=== PATIENT | male | born 1970 | race Caucasian/White ===

== ENCOUNTER → 2018-09-03 14:46 | Outpatient (CLI) | payer OTHER, SELFPAY ==
[2018-09-03 15:03] LABS: Add Manual Diff / Slide Review NO; Basophils Absolute Auto 100 /uL (0-100); Basophils Percent Auto 0.9 % (0-2); Eosinophils Absolute Auto 300 /uL (0-450); Eosinophils Percent Auto 2.6 % (2-4); Hemoglobin 14.1 g/dL (13.5-17.5); Lymphocytes Absolute Auto 3000 /uL (1100-4500); Lymphocytes Percent Auto 30.2 % (25-40); Mean Corpuscular HGB Conc 34.4 % (30-36); Mean Corpuscular Hemoglobin 31.1 PG (26-34); Mean Corpuscular Volume 90.5 fL (80-100); Monocytes Absolute Auto 500 /uL (0-900); Monocytes Percent Auto 5.5 % (3-14); Neutrophils Absolute Auto 6000 /uL (1500-7000); Neutrophils Percent Auto 60.8 % (50-75); Platelet Count 343 X10^3/uL (150-400); Red Blood Cell Count 4.53 X10^6/uL (4.5-5.9); Red Cell Distribution Width 13.9 % (11.6-14.8); White Blood Cell Count 9.9 X10^3/uL (4.5-11.0)
[2018-09-03 15:50] LABS: Alanine Aminotransferase 56 IU/L (21-72); Albumin 4.3 g/dL (3.5-5.0); Albumin Globulin Ratio 1.5 (1.0-2.8); Alkaline Phosphatase 75 U/L (38-126); Aspartate Aminotransferase 47 IU/L (17-59); BUN Creatinine Ratio 13.8 (6-22); Bilirubin Total 0.4 mg/dL (0.2-1.3); Blood Urea Nitrogen 11 mg/dL (9-20); Calcium 9.4 mg/dL (8.4-10.2); Carbon Dioxide 23 mmol/L (22-32); Chloride 104 mmol/L (98-107); Cholesterol 161 mg/dL (140-199); Estimated Glomerular Filt Rate > 60.0 mL/min (>60); Globulin 2.9 g/dL (1.7-4.1); Glucose 114 mg/dL (70-100); HDL Cholesterol 29 mg/dL (40-60); HEMOLYSIS < 15 (0-50); LDL Cholesterol Calculated 97 mg/dL (<100); Potassium 4.4 mmol/L (3.4-5.1); Sodium 137 mmol/L (137-145); Total Protein 7.2 g/dL (6.3-8.2); Triglycerides 173 mg/dL (35-150)
== END ==
PROVIDERS: Visit Provider Internal Medicine
DX: I10 Essential (primary) hypertension (principal)
CPT/HCPCS: 36415; 80053; 80061; 85025

== ENCOUNTER 2020-08-08 14:52 | Emergency (ER) | payer OTHER, SELFPAY ==
[2020-08-08 15:05] VITALS: BP 151/93; PULSE 73; RESP 18; TEMP 36.4; O2SAT 96; BMI 44.3
[2020-08-08 15:47] LABS: Add Manual Diff / Slide Review NO; Basophils Absolute Auto 100 /uL (0-100); Eosinophils Absolute Auto 300 /uL (0-450); Eosinophils Percent Auto 2.8 % (2-4); Hematocrit 41.3 % (41-53); Lymphocytes Absolute Auto 2900 /uL (1100-4500); Lymphocytes Percent Auto 30.1 % (25-40); Mean Corpuscular HGB Conc 33.8 % (30-36); Mean Corpuscular Hemoglobin 31.3 PG (26-34); Mean Corpuscular Volume 92.4 fL (80-100); Monocytes Absolute Auto 400 /uL (0-900); Monocytes Percent Auto 4.2 % (3-14); Neutrophils Absolute Auto 6000 /uL (1500-7000); Neutrophils Percent Auto 61.9 % (50-75); Platelet Count 297 X10^3/uL (150-400); Red Blood Cell Count 4.47 X10^6/uL (4.5-5.9); Red Cell Distribution Width 13.6 % (11.6-14.8); White Blood Cell Count 9.8 X10^3/uL (4.5-11.0)
[2020-08-08 15:58] LABS: Alanine Aminotransferase 43 IU/L (<50); Albumin Globulin Ratio 1.3 (1.0-2.8); Alkaline Phosphatase 71 U/L (38-126); Aspartate Aminotransferase 39 IU/L (17-59); Bilirubin Total 0.3 mg/dL (0.2-1.3); Blood Urea Nitrogen 15 mg/dL (9-20); Calcium 9.6 mg/dL (8.4-10.2); Carbon Dioxide 30 mmol/L (22-32); Chloride 101 mmol/L (98-107); Estimated Glomerular Filt Rate > 60.0 mL/min (>60); Globulin 3.2 g/dL (1.7-4.1); Glucose 152 mg/dL (70-100); HEMOLYSIS < 15 (0-50); Lactate (Lactic Acid) 1.5 mmol/L (0.7-2.1); Potassium 3.7 mmol/L (3.4-5.1); Sodium 139 mmol/L (137-145); Total Protein 7.2 g/dL (6.3-8.2)
[2020-08-08 16:11] LABS: D Dimer 996 ng/mL (<230)
[2020-08-08 16:15] LABS: Procalcitonin 0.06 ng/mL (<0.5)
--- NOTE | 2020-08-08 16:44 | DI.US.S_ITS ---
PROCEDURE: US PERIPH VENOUS LOW EXTREM RT INDICATIONS: CELLULITIS TECHNIQUE: Real-time imaging, as well as color and pulse Doppler interrogation, were performed of the lower extremity deep veins from the inguinal ligament to the popliteal fossa. COMPARISON: None. FINDINGS: The common femoral, femoral and popliteal veins are normally compressible, and free of intraluminal thrombus. Color and pulse Doppler demonstrate normal phasic intraluminal flow. There is normal augmentation response to distal compression maneuver. IMPRESSION: Negative for deep venous thrombosis. Dictated by: Devang Ceballos M.D. on 08/08/2020 at 16:28 Approved by: Devang Ceballos M.D. on 08/08/2020 at 16:28
--- NOTE | 2020-08-08 17:19 | ED.SKABFB ---
HPI - Skin/Abscess/Foreign Bdy <SELINA Gay - Last Filed: 08/08/20 18:37> General Chief complaint: Skin/Abscess/Foreign Body Stated complaint: redness, inflamed,swelling R upper back of leg Time Seen by Provider: 08/08/20 15:30 Source: patient Mode of arrival: Family Vehicle Limitations: no limitations History of Present Illness HPI narrative: This is a 49-year-old male, smoker, who has past medical history significant for hypertension presents to ED with chief complain of right inner thigh redness, swelling, discomfort for last 3 days. Patient was evaluated by PCP Dr. Bah on Sun and was prescribed with topical antifungal cream for possible fungal/yeast infection and has started using the following day without improvement and thought the redness has been increasing. He went in to walk-in clinic yesterday and prescribed with antibiotic medication doxycycline which in the past worked well with skin infection on chin about 6 weeks ago and had used 3 doses so far. Today he noticed the redness is slightly increased and outside the skin pen marking that was done at [facility]. Patient denies fever, chills, nausea or vomiting. Patient denies any open skin injuries. Patient denies history of diabetes. Patient mostly sitting down during at work. Patient reports warm on affected site and pain increases with flexing right leg, and by touch. There's no drainage from the site. Patient denies recent travel, history of DVT, surgery or prolonged bed rest. Related Data Home Medications Medication Instructions Recorded Confirmed hydrochlorothiazide PO 03/31/20 08/07/20 losartan 100 mg tablet 100 mg PO DAILY 03/31/20 08/07/20 metoprolol PO 03/31/20 08/07/20 Previous Rx's Medication Instructions Recorded doxycycline hyclate 100 mg capsule 100 mg PO BID 10 Days #20 cap 08/07/20 cephalexin 500 mg PO Q6H 7 Days #28 cap 08/08/20 Allergies Allergy/AdvReac Type Severity Reaction Status Date / Time No Known Drug Allergies Allergy Verified 08/08/20 15:13 Review of Systems <SELINA Gay - Last Filed: 08/08/20 18:37> Review of Systems Narrative: General: Denies fever, chills, fatigue, malaise, sweats. Respiratory: Denies dyspnea, cough, wheezing, hemoptysis, sputum. Cardiovascular: Denies chest pain, palpitations, orthopnea, edema. Gastrointestinal: Denies nausea, vomiting, abdominal pain, diarrhea, constipation, melena. Musculoskeletal: Denies weakness, joint pain or bony pain. Skin: HPI Neurologic: Denies weakness, headache, numbness, change in speech, confusion, seizures, incoordination. Psychiatric: No concerning psychosocial issues. Patient History <SELINA Gay - Last Filed: 08/08/20 18:37> Medical History No active medical problems Social History Smoking Status: Current every day smoker Smoking Status: Current every day smoker tobacco type: cigarettes alcohol intake frequency: 0-2 drinks per day Substance Use Type: does not use Exam <SELINA Gay - Last Filed: 08/08/20 18:37> Narrative Exam Narrative: GEN: Alert, oriented x 3, well appearing and nourished, and in no acute distress. Head: Normal cephalic, atraumatic. No scalp or temporal tenderness, palpable mass or rash. EYES: Pupils are equal, round, and reactive to light and accommodation. Extraocular muscles are intact bilaterally. There is no subconjunctival hemorrhage, exudate and sclera non-icteric. ENT: Hearing grossly intact. Airway patent. Neck: Trachea in midline. No JVD, non-tender without lymphadenopathy. No masses or thyroid megaly. Supple, non-tender and no meningeal signs. CARDIAC: Normal regular rate and rhythm without murmurs, gallops, or rubs. No chest wall tenderness. No peripheral edema, cyanosis or pallor. Capillary refill is less than 2 seconds. RESPIRATORY: Lungs are clear to auscultate bilaterally. No cough, wheezes, rales, or rhonchi. No stridor, respiratory distress, increase work of breathing, or accessary muscle used. ABD: Abdomen soft, nontender and non-distended. No guarding or rebound tenderness to palpate. Bowel sounds are normal in all 4 quadrants. There is no palpable masses or organomegaly. EXT: Full painless ROM of all extremities with no loss of sensation, strength, effusion or edema. SKIN: Erythematous, warm and tenderness to palpate in right inner thigh without soft fluctuation. No drainge or open skin. Warm, dry, normal color for patient. BACK: Nontender without deformity or crepitance. No flank tenderness. NEUROLOGICAL: Alert and oriented to place, time and person. Sensation and motor function intact bilaterally. No facial droops, dysphasia. PSYCHIATRIC: Good judgement and reason, without hallucinations, abnormal affect or abnormal behaviors during the examination. Patient is not suicidal. Initial Vital Signs Initial Vital Signs: Vital Signs Temperature 97.6 F 08/08/20 15:05 Pulse Rate 73 08/08/20 15:05 Respiratory Rate 18 08/08/20 15:05 Blood Pressure 151/93 H 08/08/20 15:05 Pulse Oximetry 96 08/08/20 15:05 <Alecia Mariee DO - Last Filed: 08/08/20 19:31> Initial Vital Signs Initial Vital Signs: Vital Signs Temperature 97.6 F 08/08/20 15:05 Pulse Rate 73 08/08/20 15:05 Respiratory Rate 18 08/08/20 15:05 Blood Pressure 151/93 H 08/08/20 15:05 Pulse Oximetry 96 08/08/20 15:05 Scores <SELINA Gay - Last Filed: 08/08/20 18:37> GCS [place] coma scale eye opening: Spontaneous [place] coma scale verbal response: Orientated [place] coma scale motor response: Obey commands [place] coma scale total score: 15 Wells' Criteria for DVT Active Cancer (Treatment within 6 months): No Bedridden recently >3 days or major surgery within 4 weeks: No Calf Swelling >3cm compared to other leg: No Collateral (nonvericose) superficial veins present: No Entire leg swollen: No Localized tenderness along the deep vein system: Yes Pitting edema, confined to symtomatic leg: No Paralysis, paresis, or recent plaster immobilization of ext: No Previously documented DVT: No Alternative dx to DVT as likely or more likely: No Wells' criteria for DVT: 1 Course <SELINA Gay - Last Filed: 08/08/20 18:37> Orders Ordered: ED Orders 08/08/20 15:38 CMP [Comprehensive Metabolic Panel] Stat Complete Blood Count AUTO DIFF Stat D Dimer Stat Lactate (Lactic Acid) Stat Procalcitonin Stat 08/08/20 16:44 US periph venous low extrem rt Stat Reevaluation(s) Reevaluation #1: Discussed with the patient about elevated D dimer and had ordered US to rule out DVT. Time: 17:10 Vital Signs Vital signs: Vital Signs - 8 hr 08/08/20 15:05 08/08/20 18:18 Temperature 97.6 F Pulse Rate 73 76 Respiratory Rate 18 12 Blood Pressure 151/93 H 148/79 H Pulse Oximetry 96 96 <Alecia Mariee DO - Last Filed: 08/08/20 19:31> Orders Ordered: ED Orders 08/08/20 15:38 CMP [Comprehensive Metabolic Panel] Stat Complete Blood Count AUTO DIFF Stat D Dimer Stat Lactate (Lactic Acid) Stat Procalcitonin Stat 08/08/20 16:44 US periph venous low extrem rt Stat Vital Signs Vital signs: Vital Signs - 8 hr 08/08/20 15:05 08/08/20 18:18 Temperature 97.6 F Pulse Rate 73 76 Respiratory Rate 18 12 Blood Pressure 151/93 H 148/79 H Pulse Oximetry 96 96 MDM - Skin/Abscess/Foreign Bdy <SELINA Gay - Last Filed: 08/08/20 18:37> Differential Diagnosis Differential diagnosis: Likely abscess of skin or subcutaneous tissue, cellulitis and other (MRSA, Staph/strep infection) Medical Records Attestation: I reviewed the patient's medical records. Lab Data Attestation: I reviewed the patient's lab results. Result diagrams: 08/08/20 15:38 08/08/20 15:38 Labs: Lab Results 08/08/20 08/08/20 08/08/20 Range/Units 15:38 15:38 15:38 WBC 9.8 (4.5-11.0) X10^3/uL RBC 4.47 L (4.5-5.9) X10^6/uL Hgb 14.0 (13.5-17.5) g/dL Hct 41.3 (41-53) % MCV 92.4 (80-100) fL MCH 31.3 (26-34) PG MCHC 33.8 (30-36) % RDW 13.6 (11.6-14.8) % Plt Count 297 (150-400) X10^3/uL Neut % (Auto) 61.9 (50-75) % Lymph % (Auto) 30.1 (25-40) % [place] % (Auto) 4.2 (3-14) % Eos % (Auto) 2.8 (2-4) % Baso % (Auto) 1.0 (0-2) % Neut # (Auto) 6000 (3796-8087) /uL Lymph # (Auto) 2900 (1471-7904) /uL [place] # (Auto) 400 (0-900) /uL Eos # (Auto) 300 (0-450) /uL Baso # (Auto) 100 (0-100) /uL D-Dimer (<230) ng/mL Sodium 139 (137-145) mmol/L Potassium 3.7 (3.4-5.1) mmol/L Chloride 101 (98-107) mmol/L Carbon Dioxide 30 (22-32) mmol/L BUN 15 (9-20) mg/dL Creatinine 0.79 (0.66-1.25) mg/dL Estimated GFR > 60.0 (>60) mL/min BUN/Creatinine Ratio 19.0 (6-22) Glucose 152 H (70-100) mg/dL Lactate 1.5 (0.7-2.1) mmol/L Calcium 9.6 (8.4-10.2) mg/dL Total Bilirubin 0.3 (0.2-1.3) mg/dL AST 39 (17-59) IU/L ALT 43 (<50) IU/L Alkaline Phosphatase 71 (38-126) U/L Total Protein 7.2 (6.3-8.2) g/dL Albumin 4.0 (3.5-5.0) g/dL Globulin 3.2 (1.7-4.1) g/dL Albumin/Globulin Ratio 1.3 (1.0-2.8) Procalcitonin (<0.5) ng/mL 08/08/20 08/08/20 Range/Units 15:38 15:38 WBC (4.5-11.0) X10^3/uL RBC (4.5-5.9) X10^6/uL Hgb (13.5-17.5) g/dL Hct (41-53) % MCV (80-100) fL MCH (26-34) PG MCHC (30-36) % RDW (11.6-14.8) % Plt Count (150-400) X10^3/uL Neut % (Auto) (50-75) % Lymph % (Auto) (25-40) % [place] % (Auto) (3-14) % Eos % (Auto) (2-4) % Baso % (Auto) (0-2) % Neut # (Auto) (6532-6630) /uL Lymph # (Auto) (0921-9809) /uL [place] # (Auto) (0-900) /uL Eos # (Auto) (0-450) /uL Baso # (Auto) (0-100) /uL D-Dimer 996 H (<230) ng/mL Sodium (137-145) mmol/L Potassium (3.4-5.1) mmol/L Chloride (98-107) mmol/L Carbon Dioxide (22-32) mmol/L BUN (9-20) mg/dL Creatinine (0.66-1.25) mg/dL Estimated GFR (>60) mL/min BUN/Creatinine Ratio (6-22) Glucose (70-100) mg/dL Lactate (0.7-2.1) mmol/L Calcium (8.4-10.2) mg/dL Total Bilirubin (0.2-1.3) mg/dL AST (17-59) IU/L ALT (<50) IU/L Alkaline Phosphatase (38-126) U/L Total Protein (6.3-8.2) g/dL Albumin (3.5-5.0) g/dL Globulin (1.7-4.1) g/dL Albumin/Globulin Ratio (1.0-2.8) Procalcitonin 0.06 (<0.5) ng/mL Imaging Data US - DVT: Radiologist's Impression: [address] [id number] ReportSigned Patient: Micah Ziegler MMR#: [id number]: 1970Acct:[id number]/Sex: 49 / MDate of Service: 08/08/20Loc: EDAccession Number: [id number] Procedure: US periph venous low extrem rt Ordering Provider: Damion Sanchez PROCEDURE: US PERIPH VENOUS LOW EXTREM RT INDICATIONS: CELLULITIS TECHNIQUE: Real-time imaging, as well as color and pulse Doppler interrogation, were performed of the lower extremity deep veins from the inguinal ligament to the popliteal fossa. COMPARISON: None. FINDINGS: The common femoral, femoral and popliteal veins are normally compressible, and free of intraluminal thrombus. Color and pulse Doppler demonstrate normal phasic intraluminal flow. There is normal augmentation response to distal compression maneuver. IMPRESSION: Negative for deep venous thrombosis. Dictated by: Devang Ceballos M.D. on 08/08/2020 at 16:28 Approved by: Devang Ceballos M.D. on 08/08/2020 at 16:28 [facility] Narrative Medical decision making narrative: This is a 49 year male who has been recurrence skin lesions/infection last 6 weeks. Patient noticed right inner thigh redness, warmth, pain for last 3 days. Patient had used topical yeast/fungal infection, and started on Doxycyclen for last 2 days after he was evaluated by his primary care physician Dr. Bah and [facility] provider. He is here today with not improving and increasing redness and discomfort beyond the skin marked by pen yesterday. Patient does not endorse constitutional symptoms. Physical exam consistent with cellulitis. He is afebrile with within normal heart rate and respiration. Patient does not appear to be toxic. Wells criteria PE score 1. Labs are assuring. No indications for leukocytosis with normal lactate and procalcitonin. However with elevated D-dimer in age adjusted upto 989 and US test to rule out DVT ordered. DVT test was negative. Given assuring labs, patient afebrile, no constitutional symptoms, patient advised to monitor the affected side with worsening symptoms for additional 24-36 hours and if he gets worse than start adding Keflex in addition to doxycycline for staph/strep infection in addition to MRSA. Return precautions discussed with patient and advised close follow-up with PCP. Patient verbalized understanding and agreement with the treatment plan. <Alecia Mariee, - Last Filed: 08/08/20 19:31> Lab Data Labs: Lab Results 08/08/20 08/08/20 08/08/20 Range/Units 15:38 15:38 15:38 WBC 9.8 (4.5-11.0) X10^3/uL RBC 4.47 L (4.5-5.9) X10^6/uL Hgb 14.0 (13.5-17.5) g/dL Hct 41.3 (41-53) % MCV 92.4 (80-100) fL MCH 31.3 (26-34) PG MCHC 33.8 (30-36) % RDW 13.6 (11.6-14.8) % Plt Count 297 (150-400) X10^3/uL Neut % (Auto) 61.9 (50-75) % Lymph % (Auto) 30.1 (25-40) % [place] % (Auto) 4.2 (3-14) % Eos % (Auto) 2.8 (2-4) % Baso % (Auto) 1.0 (0-2) % Neut # (Auto) 6000 (2196-7230) /uL Lymph # (Auto) 2900 (7190-4011) /uL [place] # (Auto) 400 (0-900) /uL Eos # (Auto) 300 (0-450) /uL Baso # (Auto) 100 (0-100) /uL D-Dimer (<230) ng/mL Sodium 139 (137-145) mmol/L Potassium 3.7 (3.4-5.1) mmol/L Chloride 101 (98-107) mmol/L Carbon Dioxide 30 (22-32) mmol/L BUN 15 (9-20) mg/dL Creatinine 0.79 (0.66-1.25) mg/dL Estimated GFR > 60.0 (>60) mL/min BUN/Creatinine Ratio 19.0 (6-22) Glucose 152 H (70-100) mg/dL Lactate 1.5 (0.7-2.1) mmol/L Calcium 9.6 (8.4-10.2) mg/dL Total Bilirubin 0.3 (0.2-1.3) mg/dL AST 39 (17-59) IU/L ALT 43 (<50) IU/L Alkaline Phosphatase 71 (38-126) U/L Total Protein 7.2 (6.3-8.2) g/dL Albumin 4.0 (3.5-5.0) g/dL Globulin 3.2 (1.7-4.1) g/dL Albumin/Globulin Ratio 1.3 (1.0-2.8) Procalcitonin (<0.5) ng/mL 08/08/20 08/08/20 Range/Units 15:38 15:38 WBC (4.5-11.0) X10^3/uL RBC (4.5-5.9) X10^6/uL Hgb (13.5-17.5) g/dL Hct (41-53) % MCV (80-100) fL MCH (26-34) PG MCHC (30-36) % RDW (11.6-14.8) % Plt Count (150-400) X10^3/uL Neut % (Auto) (50-75) % Lymph % (Auto) (25-40) % [place] % (Auto) (3-14) % Eos % (Auto) (2-4) % Baso % (Auto) (0-2) % Neut # (Auto) (4722-0302) /uL Lymph # (Auto) (3522-7817) /uL [place] # (Auto) (0-900) /uL Eos # (Auto) (0-450) /uL Baso # (Auto) (0-100) /uL D-Dimer 996 H (<230) ng/mL Sodium (137-145) mmol/L Potassium (3.4-5.1) mmol/L Chloride (98-107) mmol/L Carbon Dioxide (22-32) mmol/L BUN (9-20) mg/dL Creatinine (0.66-1.25) mg/dL Estimated GFR (>60) mL/min BUN/Creatinine Ratio (6-22) Glucose (70-100) mg/dL Lactate (0.7-2.1) mmol/L Calcium (8.4-10.2) mg/dL Total Bilirubin (0.2-1.3) mg/dL AST (17-59) IU/L ALT (<50) IU/L Alkaline Phosphatase (38-126) U/L Total Protein (6.3-8.2) g/dL Albumin (3.5-5.0) g/dL Globulin (1.7-4.1) g/dL Albumin/Globulin Ratio (1.0-2.8) Procalcitonin 0.06 (<0.5) ng/mL Discharge Plan Departure Patient Disposition: Home Clinical Impression: Cellulitis Qualifiers: Site of cellulitis: extremity Site of cellulitis of extremity: lower extremity Laterality: right Qualified Code(s): L03.115 - Cellulitis of right lower limb Instructions: DI for Cellulitis -- Adult Activity Restrictions/Additional Instructions: You have been diagnosed with [right upper leg cellulitis. Your are currently taking doxycycline and completed day 2 treatment. No indications for severe infection at this time according to blood test. No indications for DVT at this time. Please continue doxycycline therapy. Monitor for increasing redness, warmth, pain on affected leg. New skin chelle was done today. If your symptoms get worse, please start on Keflex in 24-36 hours.]. What to do: *Take your medications as directed. Keflex 4 times a day for next 7 days in addition to doxycycline. Keflex has been transmitted to [facility] in [facility]. *Follow up with your primary care provider in 2-3 days, call for an appointment. Let them know you were seen in the ED and that we asked you to be seen in follow up. *Return to ED if you have any new, worsening, or concerning symptoms, such as [worsening pain, fever, increasing redness/warmth, chest pain, breathing difficulty, unable to tolerate fluids, or any acute concerns]. Prescriptions: New cephalexin 500 mg capsule 500 mg PO Q6H 7 Days Qty: 28 RF: 0 No Action metoprolol PO RF: 0 hydrochlorothiazide PO RF: 0 losartan 100 mg tablet 100 mg PO DAILY RF: 0 doxycycline hyclate 100 mg capsule 100 mg PO BID 10 Days Qty: 20 RF: 0 Referrals: Miscellanny,MD Sudeep [Primary Care Provider] - Munir Bah MD [Physician] - <Alecia Mariee DO - Last Filed: 08/08/20 19:31> Cosign ED Attending Linkature Attestation: I was immediately available in the department for consultation. Documentation has been reviewed. Case was discussed and agree with plan.
[2020-08-08 18:18] VITALS: BP 148/79; PULSE 76; RESP 12; O2SAT 96
== END 2020-08-08 18:20 | disposition home or self-care (01) ==
PROVIDERS: Emergency Provider Nurse Practitioner Family
DX: L03.115 Cellulitis of right lower limb (principal)
CPT/HCPCS: 36415; 80053; 83605; 84145; 85025; 85379; 93971; 99283

== ENCOUNTER 2021-05-03 21:52 | Emergency (ER) | payer OTHER, SELFPAY ==
[2021-05-03 22:08] VITALS: BP 170/93; PULSE 74; RESP 22; TEMP 36.6; O2SAT 97
--- NOTE | 2021-05-03 22:11 | DI.RAD.S_ITS ---
PROCEDURE: XR KNEE RT 3V INDICATIONS: trauma TECHNIQUE: 3 views of the knee were acquired. COMPARISON: None. FINDINGS: Bones: No fractures or dislocations. No suspicious bony lesions. Soft tissues: No significant joint effusion. No suspicious soft tissue calcifications. IMPRESSION: No acute osseous abnormality. Dictated by: Nahun Melchor M.D. on 05/03/2021 at 22:27 Approved by: Nahun Melchor M.D. on 05/03/2021 at 22:27
--- NOTE | 2021-05-03 22:11 | DI.RAD.S_ITS ---
PROCEDURE: XR TIBIA FUBULA RT 2V INDICATIONS: trauma TECHNIQUE: 2 views of the tibia and fibula were acquired. COMPARISON: [facility], CR, XR KNEE RT 3V, 05/03/2021, 22:05. FINDINGS: Bones: No fractures or dislocations. No suspicious bony lesions. Soft tissues: No suspicious soft tissue calcifications or masses. IMPRESSION: No acute osseous abnormality. Dictated by: Nahun Melchor M.D. on 05/03/2021 at 22:29 Approved by: Nahun Melchor M.D. on 05/03/2021 at 22:30
--- NOTE | 2021-05-03 22:11 | DI.RAD.S_ITS ---
PROCEDURE: XR WRIST RT MIN 3V INDICATIONS: trauma TECHNIQUE: 4 views of the wrist were acquired. COMPARISON: None. FINDINGS: Bones: No fractures or dislocations. No suspicious bony lesions. Scaphoid view: Intact. Soft tissues: No suspicious soft tissue calcifications. IMPRESSION: No acute osseous abnormality. Dictated by: Nahun Melchor M.D. on 05/03/2021 at 22:30 Approved by: Nahun Melchor M.D. on 05/03/2021 at 22:31
--- NOTE | 2021-05-03 22:11 | DI.CT.S_ITS ---
PROCEDURE: CT HEAD/BRAIN WO CON INDICATIONS: trauma TECHNIQUE: Noncontrast 4.5 mm thick angled axial sections acquired from the foramen magnum to the vertex, with coronal and sagittal reformats. For radiation dose reduction, the following was used: automated exposure control, adjustment of mA and/or kV according to patient size. COMPARISON: None. FINDINGS: Image quality: Good. CSF spaces: Basal cisterns are patent. No extra-axial fluid collections. Ventricles are normal in size and shape. Brain: No midline shift. No intracranial masses or hemorrhage. Bruner-white matter interface is normal. Skull and face: Small posterior left scalp hematoma or contusion. Calvarium and visualized facial bones are intact, without suspicious lesions. Sinuses: Visualized sinuses and mastoids are clear. IMPRESSION: No acute intracranial abnormality. Small posterior left scalp hematoma or contusion. Dictated by: Nahun Melchor M.D. on 05/03/2021 at 22:48 Approved by: Nahun Melchor M.D. on 05/03/2021 at 22:51
--- NOTE | 2021-05-03 22:11 | DI.CT.S_ITS ---
PROCEDURE: CT CERVICAL SPINE WO CON INDICATIONS: trauma TECHNIQUE: Noncontrast 3 mm thick sections acquired from the skull base to the T4 level. Sagittal and coronal reformats were then constructed. For radiation dose reduction, the following was used: automated exposure control, adjustment of mA and/or kV according to patient size. COMPARISON: None. FINDINGS: Image quality: Excellent. Bones: No fractures or dislocations. Visualized superior ribs are intact. Soft tissues: Prevertebral soft tissues are normal in thickness. Mild calcification at the left carotid bulb. No paravertebral hematomas. No apical pneumothoraces. IMPRESSION: No acute osseous abnormality. Dictated by: Nahun Melchor M.D. on 05/03/2021 at 22:51 Approved by: Nahun Melchor M.D. on 05/03/2021 at 22:53
--- NOTE | 2021-05-03 23:26 | ED_ITS ---
HPI - Fall General Chief Complaint: Trauma Stated Complaint: fall down stairs, rt wrist, rt leg and head injury Time Seen by Provider: 05/03/21 23:24 Source: patient Mode of arrival: Ambulatory History of Present Illness HPI Narrative: The patient is a 50-year-old male history of hypertension presenting after fall at work. He works on the [employer] he fell down numerous stairs while at work. He tried to catch himself on the railing with his right hand. He did hit his head but no loss of consciousness. Bigger complaints are his right wrist and right leg pain. He denies any neck pain. He is not on any antiplatelet or anticoagulation medication. He has some some abrasions on his right leg but he is ambulatory. He denies any numbness tingling or weakness. No nausea or vomiting. Related Data Home Medications Medication Instructions Recorded Confirmed hydrochlorothiazide PO 03/31/20 08/07/20 losartan 100 mg tablet 100 mg PO DAILY 03/31/20 08/07/20 metoprolol PO 03/31/20 08/07/20 Previous Rx's Medication Instructions Recorded hydrocodone 5 mg-acetaminophen 325 1 tab PO Q6H PRN #10 tab 05/03/21 mg tablet Allergies Allergy/AdvReac Type Severity Reaction Status Date / Time No Known Drug Allergies Allergy Verified 08/08/20 15:13 Review of Systems Review of Systems Narrative: GENERAL: Denies chills, fatigue, malaise, fever, sweats, travel HEENT: Denies sinus pain, ear pain, sore throat, difficulty swallowing, neck pain RESPIRATORY: Denies dyspnea, cough, wheezing, hemoptysis, sputum. CARDIOVASCULAR: Denies chest pain, palpitations, orthopnea, edema GASTROINTESTINAL: Denies nausea, vomiting, abdominal pain, diarrhea, constipation, melena. : Denies dysuria, frequency, incontinence, hematuria, urinary retention, flank pain. MUSCULOSKELETAL: See HPI SKIN: No rash, no erythema, no pruritus NEUROLOGIC: Denies weakness, dizziness, headache, numbness, change in speech, confusion PSYCHIATRIC: No concerning psychosocial issues. 12 point review of systems is negative except for those stated above and HPI Patient History Medical History Hypertension No active medical problems Social History (Reviewed 05/04/21 @ 04:07 by JOSE L Goldberg Smoking Status: Current every day smoker Smoking Status: Current every day smoker tobacco type: cigarettes alcohol intake frequency: a few times a week Substance Use Type: does not use Exam Initial Vital Signs Initial Vital Signs: Vital Signs Temperature 97.9 F 05/03/21 22:08 Pulse Rate 74 05/03/21 22:08 Respiratory Rate 22 05/03/21 22:08 Blood Pressure 170/93 H 05/03/21 22:08 Pulse Oximetry 97 05/03/21 22:08 GENERAL: Alert 50-year-old male overweight weight HEENT: Head atraumatic,EOMI, pupils reactive, face symmetric, moist mucous membranes NECK: No vertebral tenderness full flexion extension and rotation CARDIOVASCULAR: Regular rate and rhythm without murmurs, rubs or gallops. RESPIRATORY: Breath sounds equal bilaterally, no wheezes rales or rhonchi. EXTREMITIES: Normal range of motion, no clubbing or edema. Neurovascularly intact Pain and mild swelling at right wrist is pain with flexion and extension distal radial pulse is intact. Mild shoulder his pain but full range of motion he has some swelling over his deltoid. His no lacerations. Right leg he is able to stand and bear weight without difficulty there is no hip his pain or injury. Mild knee abrasion is noted along with mild distal tibial abrasion. No lacerations. Mild swelling knee is stable. Distal pedal pulses intact. Ankle is stable Achilles tendon is present calf is soft. NEUROLOGICAL: Alert and oriented x4.Normal gait and speech. Cranial nerves II through XII grossly intact. SKIN: Warm, dry, no laceration, no petechiae, no rashes or lesions. Course Orders Ordered: ED Orders 05/03/21 22:11 CT cervical spine wo con Stat CT head/brain wo con Stat XR knee RT 3V Stat XR tibia fibula RT 2V Stat XR wrist RT min 3V Stat Discontinued Medications Hydrocodone Bitart/Acetaminophen (Hydrocodone/Acet 5/325 Prepack) 1 bottle MISC SEEINSTR ONE Stop: 05/03/21 23:39 Last Admin: 05/03/21 23:46 Dose: 1 bottle Documented by: AZALEA Ketorolac Tromethamine (Ketorolac 30 Mg/Ml Vial) 30 mg IM NOW ONE Stop: 05/03/21 23:39 Last Admin: 05/03/21 23:46 Dose: 30 mg Documented by: AZALEA Vital Signs Vital signs: Vital Signs - 8 hr 05/03/21 22:08 Temperature 97.9 F Pulse Rate 74 Respiratory Rate 22 Blood Pressure 170/93 H Pulse Oximetry 97 MDM - Fall Imaging Data Extremity x-ray #1: Radiologist's Impression: PROCEDURE:? XR KNEE RT 3V ? INDICATIONS:? trauma ? TECHNIQUE:? 3 views of the knee were acquired.? ? COMPARISON:? None. ? FINDINGS:? ? Bones:? No fractures or dislocations.? No suspicious bony lesions.? ? Soft tissues:? No significant joint effusion.? No suspicious soft tissue ca lcifications.? IMPRESSION:? No acute osseous abnormality. ? ? Dictated by: Nahun Melchor M.D. on 05/03/2021 at 22:27 ? ? Extremity x-ray #2: Radiologist's Impression: PROCEDURE:? XR TIBIA FUBULA RT 2V ? INDICATIONS:? trauma ? TECHNIQUE:? 2 views of the tibia and fibula were acquired.? ? COMPARISON:? [facility], , XR KNEE RT 3V, 05/03/2021, 22:05. ? FINDINGS:? ? Bones:? No fractures or dislocations.? No suspicious bony lesions.? ? Soft tissues:? No suspicious soft tissue calcifications or masses.? ? IMPRESSION:? No acute osseous abnormality. ? ? Dictated by: Nahun Melchor M.D. on 05/03/2021 at 22:29 ? ? Extremity x-ray #3: Radiologist's Impression: PROCEDURE:? XR WRIST RT MIN 3V ? INDICATIONS: trauma ? TECHNIQUE:? 4 views of the wrist were acquired.? ? COMPARISON:? None. ? FINDINGS:? ? Bones:? No fractures or dislocations.? No suspicious bony lesions.? ? Scaphoid view:? Intact. ? Soft tissues:? No suspicious soft tissue calcifications.? ? IMPRESSION:? No acute osseous abnormality. ? ? Dictated by: Nahun Melchor M.D. on 05/03/2021 at 22:30 ? ? Approved by: Nahun Melchor M.D. on 05/03/2021 at 22:31 ? CT - cervical spine: Radiologist's Impression: PROCEDURE:? CT CERVICAL SPINE WO CON ? INDICATIONS:? trauma ? TECHNIQUE:? Noncontrast 3 mm thick sections acquired from the skull base to the T4 level.? Sagittal and coronal reformats were then constructed.? For radiation dose reduction, the following was used:? automated exposure control, adjustment of mA and/or kV according to patient size.? ? COMPARISON:? None. ? FINDINGS:? Image quality:? Excellent.? ? Bones:? No fractures or dislocations.? Visualized superior ribs are intact.? ? Soft tissues:? Prevertebral soft tissues are normal in thickness.? Mild calcification at the left carotid bulb.? No paravertebral hematomas.? No apical pneumothoraces.? ? ? IMPRESSION:? No acute osseous abnormality. ? ? ? Dictated by: Nahun Melchor M.D. on 05/03/2021 at 22:51 ? ? Approved by: Nahun Melchor M.D. on 05/03/2021 at 22:53 ? CT scan - head: Radiologist's Impression: PROCEDURE:? CT HEAD/BRAIN WO CON ? INDICATIONS:? trauma ? TECHNIQUE:? Noncontrast 4.5 mm thick angled axial sections acquired from the foramen magnum to the vertex, with coronal and sagittal reformats.? For radiation dose reduction, the following was used:? automated exposure control, adjustment of mA and/or kV according to patient size.? ? COMPARISON:? None. ? FINDINGS:? Image quality:? Good.? ? CSF spaces:? Basal cisterns are patent.? No extra-axial fluid collections.? Ventricles are normal in size and shape.? ? Brain:? No midline shift.? No intracranial masses or hemorrhage.? Bruner-white matter interface is normal.? ? Skull and face:? Small posterior left scalp hematoma or contusion.? Calvarium and visualized facial bones are intact, without suspicious lesions.? ? Sinuses:? Visualized sinuses and mastoids are clear.? ? IMPRESSION:? No acute intracranial abnormality. Small posterior left scalp hematoma or contusion. ? ? Dictated by: Nahun Melchor M.D. on 05/03/2021 at 22:48 ? ? Approved by: Nahun Melchor M.D. on 05/03/2021 at 22:51 ? MDM Narrative Medical decision making narrative: Patient is ambulatory in the ED. complaining mostly of right wrist pain all imaging is make it today. He is given days work. I strongly encouraged him to follow up with his primary care provider he overall appears well and is given pain medication in the ED. Discharge Plan Departure Patient Disposition: Home Clinical Impression: Right wrist sprain, Contusion of leg, right, Closed head injury Instructions: DI for Wrist Sprain, Closed Head Injury Activity Restrictions/Additional Instructions: *You have been diagnosed with right wrist sprain, contusion, closed head injury *What to do: Expect to be sore for the next few days you should start to improve. Elevate and ice 20-30 minutes at a time. May also need repeat x-rays in 7-10 days if still having for pain and discomfort *Continue to take medications as directed--> SENT TO [facility] Ibuprofen 600 mg every 6 hours if needed for epsg-ok-tqdiesjd pain [place] 1 tablet every 6 hours if needed for severe pain *Follow up with your primary care provider in 2-3 days , you will need to see them for any further time off or any further testing. or call [phone] *Return to ER if you should have increasing pain, numbness tingling weakness persistent or any new, worsening or concerning symptoms CONTROLLED SUBSTANCE DISCHARGE (Narcotoic/benzodiazepine/Flexeril/Phenergan) 1. You have been prescribed narcotic medications, it does have acetaminophen/Tylenol/paracetamol in it, DO NOT TAKE MORE THAN 4,00mg in 24 hours of Tylenol. TRAMADOL DOES NOT CONTAIN TYLENOL 2. Please understand that we cannot provide further refills of narcotics, benzodiazepines or controlled substances through the ED and her pain management will need to be through your provider. 3. While on these medications you cannot drive or operate heavy machinery. 4. You cannot sign legal documents or perform any duties such as this. 5. As long as you're taking opiate pain medications he should also be taking a stool softener such as Colace, Dulcolax, MiraLAX or prune juice, to help avoid constipation. Prescriptions: New hydrocodone-acetaminophen 5-325 mg tablet 1 tab PO Q6H PRN (Reason: pain) Qty: 10 0RF No Action metoprolol PO 0RF hydrochlorothiazide PO 0RF losartan 100 mg tablet 100 mg PO DAILY 0RF Referrals: Rob Beard MD [Non-Staff] - Christine Escobedo MD [Physician] -
[2021-05-03] MEDS: KETOROLAC 30 MG/ML VIAL IM (23:46)
[2021-05-03] MEDS: HYDROCODONE/ACET 5/325 PREPACK 1 BOTTLE MISC (23:46)
== END 2021-05-04 00:07 | disposition home or self-care (01) ==
PROVIDERS: Emergency Provider Emergency Medicine
DX: S63.501A Unspecified sprain of right wrist, initial encounter (principal); S80.11XA Contusion of right lower leg, initial encounter; S09.90XA Unspecified injury of head, initial encounter; F17.210 Nicotine dependence, cigarettes, uncomplicated; W10.9XXA Fall (on) (from) unspecified stairs and steps, initial encounter; Y99.0 Civilian activity done for income or pay
CPT/HCPCS: 70450; 72125; 73110; 73562; 73590; 96372; 99283; 99284; J1885

== ENCOUNTER → 2021-05-16 15:03 | Outpatient (CLI) | payer OTHER, SELFPAY ==
--- NOTE | 2021-05-16 | DI.RAD.S_ITS ---
PROCEDURE: XR CERVICAL SPINE 2V OR 3V INDICATIONS: Acute Tramatic Injury of Spine TECHNIQUE: 3 view(s) of the cervical spine were acquired. COMPARISON: [facility], CT, CT CERVICAL SPINE WO [facility], 05/03/2021, 22:19. FINDINGS: Bones: No fractures or dislocations to the C7 level. The lateral masses of C1 appear intact on the odontoid view. Prominent osteophytes at C5-C6 and C6-C7. Uncovertebral joint hypertrophy. No suspicious bony lesions. Soft tissues: No prevertebral soft tissue swelling. IMPRESSION: No acute osseous abnormality. MRI of the cervical spine could be considered for further evaluation. Dictated by: Nahun Melchor M.D. on 05/16/2021 at 16:56 Approved by: Nahun Melchor M.D. on 05/16/2021 at 16:58
== END ==
PROVIDERS: PCP Internal Medicine; Referring Provider Internal Medicine; Visit Provider Internal Medicine
DX: S14.109A Unspecified injury at unspecified level of cervical spinal cord, initial encounter (principal); X58.XXXA Exposure to other specified factors, initial encounter
CPT/HCPCS: 72040

== ENCOUNTER 2021-06-23 08:36 | Emergency (ER) | payer OTHER, SELFPAY ==
--- NOTE | 2021-06-23 08:46 | ED.SKABFB ---
HPI - Skin/Abscess/Foreign Bdy General Chief complaint: Skin/Abscess/Foreign Body Stated complaint: Referred walk in, tender and hot abscess on neck Time Seen by Provider: 06/23/21 08:40 History of Present Illness HPI narrative: 50-year-old male smoker, frequent drinker presents at the request of the walk-in clinic for evaluation of a painful, red tender lump on the back of his neck that has worsened over the past day or so. He denies any systemic findings such as fever, chills nor nausea or vomiting. He denies neurologic symptoms such as numbness, tingling or weakness. He has had prior skin infections and was sent here by the walk-in due to a concern about this being a potential abscess. He is otherwise well and free of complaint Related Data Home Medications Medication Instructions Recorded Confirmed hydrochlorothiazide PO 03/31/20 06/23/21 losartan 100 mg tablet 100 mg PO DAILY 03/31/20 06/23/21 metoprolol PO 03/31/20 06/23/21 Previous Rx's Medication Instructions Recorded doxycycline hyclate 100 mg tablet 100 mg PO BID #20 tab 06/23/21 hydrocodone 5 mg-acetaminophen 325 1 tab PO Q4-6H PRN #10 tab 06/23/21 mg tablet Allergies Allergy/AdvReac Type Severity Reaction Status Date / Time No Known Drug Allergies Allergy Verified 06/23/21 08:17 Review of Systems Review of Systems Narrative: GENERAL: Denies chills, fatigue, malaise, fever, sweats. HEENT: Denies sinus pain, ear pain, sore throat, difficulty swallowing, dizziness. RESPIRATORY: Denies dyspnea, cough, wheezing, hemoptysis, sputum. CARDIOVASCULAR: Denies chest pain, palpitations, orthopnea, edema, GASTROINTESTINAL: Denies nausea, vomiting, abdominal pain, diarrhea, constipation, melena. : Denies dysuria, frequency, incontinence, hematuria, urinary retention. MUSCULOSKELETAL: denies weakness, joint pain, or bony pain SKIN: See HPI NEUROLOGIC: Denies weakness, headache, numbness, change in speech, confusion, seizures, incoordination. PSYCHIATRIC: No concerning psychosocial issues. 12 point review of systems is negative except for those stated above Patient History Medical History Hypertension No active medical problems Social History Smoking Status: Current every day smoker Smoking Status: Current every day smoker tobacco type: cigarettes alcohol intake frequency: a few times a week Substance Use Type: does not use Exam Narrative Exam Narrative: GEN: AOx3 and in mild distress EYES: Pupils are equal, round, and reactive to light and accommodation. Extraoccular muscles are intact bilaterally. There is no subconjunctival hemorrhage or exudate. CHEST: Lungs are clear to auscultation bilaterally and free of wheezes, rales, or rhonchi. Heart rate is regular rhythm, there are no murmurs, clicks, rubs, or gallops. There is no chest wall tenderness. ABD: Abdomen is soft and nontender. There is no guarding or rebound. Bowel sounds are normal in all 4 quadrants. There is no mass or organomegaly. EXT: Full painless ROM of all extremities with no loss of sensation or strength. SKIN: 3x3cm area of induration, redness and warmth without fluctuance on Right posterior lateral neck. Warm, pink, and dry. No erythema or rash. Bedside US demonstrates no obvious pocket of fluid Initial Vital Signs Initial Vital Signs: Vital Signs Temperature 97.6 F 06/23/21 08:49 Pulse Rate 63 06/23/21 08:49 Respiratory Rate 18 06/23/21 08:49 Blood Pressure 167/84 H 06/23/21 08:49 Pulse Oximetry 96 06/23/21 08:49 Procedures Abscess I/D I&D #1: Site: neck Side (if applicable): right Local Anesthetic: lidocaine 1% and with bicarb Amount of anesthesia used (mL): 3 Technique: needle aspiration Amount of fluid expressed (mL): 0 Course Orders Ordered: Discontinued Medications Doxycycline Hyclate (Doxycycline Hyclate 100 Mg Tablet) 100 mg PO NOW ONE Stop: 06/23/21 09:18 Last Admin: 06/23/21 09:20 Dose: 100 mg Documented by: BELLE Lidocaine/Sodium Bicarbonate (Lido 1%/Sod Bicarb 8.4% (10ml) 10 Ml Syringe) 10 ml INJ NOW ONE Stop: 06/23/21 08:51 Last Admin: 06/23/21 09:00 Dose: 10 ml Documented by: BELLE MDM - Skin/Abscess/Foreign Bdy MDM Narrative Medical decision making narrative: Painful red indurated patch on posterior neck. No fluctuance. No abscess on bedside US. No return on needle aspiration. Discussed ABX, warm compresses, return precautions and importance of follow up Discharge Plan Departure Patient Disposition: Home Clinical Impression: Cellulitis and abscess of neck Instructions: DI for Skin Abscess Activity Restrictions/Additional Instructions: *You have been diagnosed with [cellulitis and small abscess of neck *What to do: *Please continue to take your regular medications as directed. [x ] New medication prescriptions sent to your pharmacy: [[facility]] [ ] New medication written as a paper prescription [ ] No new medications given *Please follow up with your primary care provider in 2-3 days, call for an appointment. Let them know you were seen in the Emergency Department and that we ask that you be seen in follow up. We will electronically transmit a record of today's note if your PCP is in our system *If you do not have a primary care provider please contact the [facility] Resource line at [phone]. They will ask some questions about your medical history and help get you set up with a doctor in the community. *Return to Emergency Department if you should have any new, worsening or concerning symptoms, such as [fever greater than 101 F, shaking chills, worsening pain, persistent vomiting or other bothersome symptoms] You have been prescribed a short course of narcotic medications. These are potentially dangerous and addictive medications that should be used carefully. While on these medications you cannot drive or operate heavy machinery. Additionally, you cannot sign legal documents or perform any duties such as this. 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 Please understand that we cannot provide further refills of narcotics or controlled substances through the ED and your pain management will need to be through your Primary Care Provider Prescriptions: New hydrocodone-acetaminophen 5-325 mg tablet 1 tab PO Q4-6H PRN (Reason: pain) Qty: 10 0RF doxycycline hyclate 100 mg tablet 100 mg PO BID Qty: 20 0RF No Action metoprolol PO 0RF hydrochlorothiazide PO 0RF losartan 100 mg tablet 100 mg PO DAILY 0RF Referrals: Rob Beard MD [Primary Care Provider] -
[2021-06-23 08:49] VITALS: BP 167/84; PULSE 63; RESP 18; TEMP 36.4; O2SAT 96; BMI 47.2
[2021-06-23] MEDS: LIDO 1%/SOD BICARB 8.4% (10ML) 10 ML SYRINGE INJ (09:00)
[2021-06-23 09:09] VITALS: BP 154/75; PULSE 65; RESP 18; O2SAT 98
[2021-06-23] MEDS: DOXYCYCLINE HYCLATE 100 MG TABLET PO (09:20)
== END 2021-06-23 09:21 | disposition home or self-care (01) ==
PROVIDERS: Emergency Provider Emergency Medicine; PCP Internal Medicine
DX: L03.221 Cellulitis of neck (principal); L02.11 Cutaneous abscess of neck; F17.210 Nicotine dependence, cigarettes, uncomplicated
CPT/HCPCS: 10060; 99283

== ENCOUNTER 2021-08-23 10:30 | Outpatient (RCR) | payer OTHER, SELFPAY ==
--- NOTE | 2021-05-27 13:33 | PT.OIE ---
Current Diagnoses Unspecified injury at unspecified level of cervical spinal cord, initial encounter (05/27/21) Contusion of right shoulder, initial encounter (05/27/21) Unspecified sprain of right wrist, initial encounter (05/27/21) Past Medical History (Last Reviewed 05/04/21 @ 04:07 by Lydia Petersen DO) Hypertension No active medical problems Visit Care Team Role Provider Type Rob Beard MD Primary Care Provider Non-Staff Specialty: Internal Medicine Address: [address] [place] [address], [id number] Email: Munir Bah MD Attending Provider Physician Referring Provider Specialty: Internal Medicine Address: [address] [place] [address], [id number] Email: [email or web address] Physical Therapy Initial Evaluation PT-OP-A Visit Information Start: 05/23/21 10:01 Freq: Status: Active Protocol: Document 05/27/21 12:19 MB (Rec: 05/27/21 12:47 MB [id number]) Out-Patient Physical Therapy Visit Information Visit Information Visit Type Initial Evaluation Visit Note [facility] Visit Start Time 12:19 Visit Stop Time 12:55 Total Visit Minutes 36 Visit Number 1 Evaluation Information Evaluation Date 05/27/21 Precautions Precautions Pt has not been working since injury [facility] PT-OP-B Current Condition Start: 05/23/21 10:01 Freq: Status: Active Protocol: Document 05/27/21 12:19 MB (Rec: 05/27/21 12:47 MB [id number]) Current Condition History of Current Condition Onset Date 05/03/21 Current Complaints Right wrist with attempting to flex it History of Current Condition On 05/03/21, pt was taking the two flights of steps down on the [facility] when he fell down the stairs. He tried to slow his fall with his right hand. He was too far from the rail. He jammed his wrist. He then hit his right shoulder and right leg. He also hit his head. His biggest current complaint is his right wrist. He also has popping and crunching at his neck and some discomfort at neck and right leg where he hit the steps. Pt has not worked since the injury. He doesn't sleep well in general. Now, when he rolls side to side, his neck does crunching and that bothers him . Pt rates pain as 1-2/10 right wrist. PMH includes high BP and obesity. Pt is right handed. Future Testing and Treatments Planned X-ray right wrist: NAD; x-ray right tib/fib: NAD; x-ray right knee: NAD; CT head and brain: NAD and small posterior left scalp hematoma or contusion; CT cervical spine: soft tissues normal, mild calcification at left cartoid bulb Treatment Goals Patient/Caregiver Goals To have right wrist be normal PT-OP-C Subjective Start: 05/23/21 10:01 Freq: Status: Active Protocol: Document 05/27/21 12:19 MB (Rec: 05/27/21 12:47 MB [id number]) OP-PT Subjective Patient Comments Patient Comments See history of current condition Patient Questionnaires Quick Dash- Upper Extremity Quick Dash UE Score 38 Quick Dash UE Impairment 60 to 79% Impaired (Score 60- 79) PT-OP-J Posture/Palpation/Skin Start: 05/23/21 10:01 Freq: Status: Active Protocol: Document 05/27/21 12:19 MB (Rec: 05/27/21 13:33 MB [id number]) Posture Evaluation Comments Posture Comments Standing posture: forward head , rounded shoulders, Dowager's hump, increased soft tissue abdomen and increased anterior tilt pelvis, decreased to no thoracic kyphosis, B knee flexion in standing with indention distal right tibia from fall, right iliac crest is higher than the left, increased Grecia angle right compared to the left and more lateral foot WB right compared to left. PT-OP-K Range of Motion Start: 05/23/21 10:01 Freq: Status: Active Protocol: Document 05/27/21 12:19 MB (Rec: 05/27/21 13:33 MB [id number]) Cervical Spine Range of Motion Cervical Spine Active Testing Position Standing Flexion 25 Extension 30 Rotation Left 70 Rotation Right 70 Lateral Flexion Left 10 Lateral Flexion Right 12 Shoulder Goniometric Range of Motion Shoulder Bilateral Shoulder ROM WFL Yes Testing Position Standing Elbow/Forearm Range of Motion Elbow/Forearm Bilateral Elbow/Forearm ROM WFL Yes ROM Testing Position Standing Wrist Goniometric Range of Motion Wrist Left Wrist ROM WFL Yes Flexion Active (degrees) 35 Extension Active (degrees) 70 Ulnar Deviation Active (degrees) 35 Radial Deviation Active (degrees) 12 Right Wrist ROM WFL No Flexion Active (degrees) 5 Extension Active (degrees) 30 Ulnar Deviation Active (degrees) 20 Radial Deviation Active (degrees) 10 ROM Limitations Wrist Limitations of Range of Motion Pain,Swelling Comments Pt has palpable restriction dorsal side radioulnar joint, and mild edema in right hand and wrist Finger Goniometric Range of Motion Finger ROM Limitations Comments Pt is slow to make fist with right hand compared to the left PT-OP-M Strength Start: 05/23/21 10:01 Freq: Status: Active Protocol: Document 05/27/21 12:19 MB (Rec: 05/27/21 13:33 MB [id number]) Shoulder Strength Shoulder Manual Muscle Testing Bilateral Flexion 5 Normal Abduction (C5) 5 Normal Elbow/Forearm Strength Elbow and Forearm Manual Muscle Testing Bilateral Flexion (C6) 5 Normal Extension (C7) 5 Normal Pronation 5 Normal Supination 5 Normal Comments *PT grasps at forearm and not at hand or wrist d/t right sided injury Wrist Strength Wrist Manual Muscle Testing Left Flexion (C7) 5 Normal Extension (C6) 5 Normal Ulnar Deviation 5 Normal Radial Deviation 5 Normal Right Comments Deferred d/t painful restricted AROM PT-OP-T Assessment and Plan Start: 05/23/21 10:01 Freq: Status: Active Protocol: Document 05/27/21 12:19 MB (Rec: 05/27/21 13:33 MB [id number]) Physical Therapy Assessment Rehab Potential Rehabilitation Potential Fair Evaluation Complexity Number of Personal Factors/Comorbidities 1-2 Number of Body Systems Impaired 1-2 Clinical Presentation at Evaluation Evolving Impairments Impairments Activity Tolerance,Edema, Functional Activities,Pain, Posture,ROM,Soft Tissue Mobility,Strength Other Impairments Pt denies paresthesias. Personal factors include pt cannot work d/t injury and has not had MRI of right wrist despite injury and visual and palpable changes. Body systems affected include musculoskeletal and lymphatic. His clinical presentation is stable to evolving. Goals 4 Skilled Nursing Goal (LTG) Pt will perform progressive HEP with I including posture, range, and strength exercises to improve functional use of right hand by 07/25/21. LTG Duration 8 weeks 3 Skilled Nursing Goal (LTG) Pt will present with dominant right tailor fitter strength at least equal to the left to prepare for work tasks by 07/25/21. LTG Duration 8 weeks 2 Supervisor Money Room Goal (LTG) Pt will present with active right wrist ROM equal to the left to improve ADLs and IADLs by 07/25/21. LTG Duration 8 weeks 1 Skilled Nursing Goal (LTG) Pt will present with QuickDASH score reflecting no more than 10% impairment to allow return to work by 07/25/21. LTG Duration 8 weeks Assessment Summary Assessment Pt is a 50 y/o male presenting with visual and palpable right wrist changes after [place] on 05/03/21. Since his injury, he has not been able to work. He is right handed and presents with edema, decreased ROM and strength. He may benefit from further diagnostics of the area. He will benefit from PT trial to improve edema, pain, range and strength. Barriers include possible underlying abnormality of his right wrist . Physical Therapy Plan Frequency and Duration Frequency of Treatment 2x/Week Duration of Treatment 8 weeks Plan of Care Start Date 05/27/21 Plan of Care End Date 07/25/21 Therapeutic Interventions Therapeutic Interventions Home Exercise Program,Joint Mobilizations,Manual Therapy, Neuromuscular Re-education, Patient/Caregiver Education, Self-Care/Home Management,Soft Tissue Mobilization,Taping, Therapeutic Activities, Therapeutic Exercises Modalities Cold Pack/Ice Massage,Electric Stimulation,Hot Packs, Ultrasound Next Visit Focus/Plan Next Note Type Treatment Note Next Visit Plan Initiate any other hand and wrist testing
--- NOTE | 2021-05-27 13:34 | PT.OPPOC ---
Physical, Occupational & Speech Therapy At [facility] Current Diagnoses Unspecified injury at unspecified level of cervical spinal cord, initial encounter (05/27/21) Contusion of right shoulder, initial encounter (05/27/21) Unspecified sprain of right wrist, initial encounter (05/27/21) Visit Care Team Role Provider Type Rob Beard MD Primary Care Provider Non-Staff Specialty: Internal Medicine Address: [address] [place] [address], [id number] Email: Munir Bah MD Attending Provider Physician Referring Provider Specialty: Internal Medicine Address: [address] [place] [address], [id number] Email: [email or web address] Plan Of Care PT-OP-T Assessment and Plan Start: 05/23/21 10:01 Freq: Status: Active Protocol: Document 05/27/21 12:19 MB (Rec: 05/27/21 13:33 MB [id number]) Physical Therapy Assessment Rehab Potential Rehabilitation Potential Fair Evaluation Complexity Number of Personal Factors/Comorbidities 1-2 Number of Body Systems Impaired 1-2 Clinical Presentation at Evaluation Evolving Impairments Impairments Activity Tolerance,Edema, Functional Activities,Pain, Posture,ROM,Soft Tissue Mobility,Strength Other Impairments Pt denies paresthesias. Personal factors include pt cannot work d/t injury and has not had MRI of right wrist despite injury and visual and palpable changes. Body systems affected include musculoskeletal and lymphatic. His clinical presentation is stable to evolving. Goals 4 Halfway Goal (LTG) Pt will perform progressive HEP with I including posture, range, and strength exercises to improve functional use of right hand by 07/25/21. LTG Duration 8 weeks 3 Halfway Goal (LTG) Pt will present with dominant right couture dressmaker strength at least equal to the left to prepare for work tasks by 07/25/21. LTG Duration 8 weeks 2 Halfway Goal (LTG) Pt will present with active right wrist ROM equal to the left to improve ADLs and IADLs by 07/25/21. LTG Duration 8 weeks 1 Turbine Assembler Goal (LTG) Pt will present with QuickDASH score reflecting no more than 10% impairment to allow return to work by 07/25/21. LTG Duration 8 weeks Assessment Summary Assessment Pt is a 50 y/o male presenting with visual and palpable right wrist changes after [place] 05/03/21. Since his injury, he has not been able to work. He is right handed and presents with edema, decreased ROM and strength. He may benefit from further diagnostics of the area. He will benefit from PT trial to improve edema, pain, range and strength. Barriers include possible underlying abnormality of his right wrist . Physical Therapy Plan Frequency and Duration Frequency of Treatment 2x/Week Duration of Treatment 8 weeks Plan of Care Start Date 05/27/21 Plan of Care End Date 07/25/21 Therapeutic Interventions Therapeutic Interventions Home Exercise Program,Joint Mobilizations,Manual Therapy, Neuromuscular Re-education, Patient/Caregiver Education, Self-Care/Home Management,Soft Tissue Mobilization,Taping, Therapeutic Activities, Therapeutic Exercises Modalities Cold Pack/Ice Massage,Electric Stimulation,Hot Packs, Ultrasound Next Visit Focus/Plan Next Note Type Treatment Note Next Visit Plan Initiate any other hand and wrist testing Plan of Care Dates Plan of Care Start Date 05/27/21 Plan of Care End Date 07/25/21 Electronically Signed by: Amalia Richmond, EVERARDO 05/27/21 1067 Please Sign and Return: I have reviewed this Plan of Care and certify that the skilled therapy services above are required to meet the patient?s needs. Physician Signature Date Printed Name and Credentials Clinical Instructor Signature Printed Name and Credentials
--- NOTE | 2021-06-03 18:26 | PT.OTN ---
Current Diagnoses Unspecified injury at unspecified level of cervical spinal cord, initial encounter (06/03/21) Contusion of right shoulder, initial encounter (06/03/21) Unspecified sprain of right wrist, initial encounter (06/03/21) Physical Therapy Treatment Note PT-OP-A Visit Information Start: 05/23/21 10:01 Freq: Status: Active Protocol: Document 06/03/21 09:56 LRN (Rec: 06/03/21 10:40 LRN [id number]) Out-Patient Physical Therapy Visit Information Visit Information Visit Type Treatment Note Visit Start Time 09:56 Visit Stop Time 10:39 Total Visit Minutes 43 Visit Number 2 Precautions Precautions Controlled HBP Pre-diabetic PT-OP-B Current Condition Start: 05/23/21 10:01 Freq: Status: Active Protocol: Document 05/27/21 12:19 MB (Rec: 05/27/21 12:47 MB [id number]) Current Condition History of Current Condition Onset Date 05/03/21 Current Complaints Right wrist with attempting to flex it History of Current Condition On 05/03/21, [place]. He tried to slow his fall with his right hand. He was too far from the rail. He jammed his wrist. He then hit his right shoulder and right leg. He also hit his head. His biggest current complaint is his right wrist. He also has popping and crunching at his neck and some discomfort at neck and right leg where he hit the steps. Pt has not worked since the injury. He doesn't sleep well in general. Now, when he rolls side to side, his neck does crunching and that bothers him . Pt rates pain as 1-2/10 right wrist. PMH includes high BP and obesity. Pt is right handed. Future Testing and Treatments Planned X-ray right wrist: NAD; x-ray right tib/fib: NAD; x-ray right knee: NAD; CT head and brain: NAD and small posterior left scalp hematoma or contusion; CT cervical spine: soft tissues normal, mild calcification at left cartoid bulb Treatment Goals Patient/Caregiver Goals To have right wrist be normal PT-OP-C Subjective Start: 05/23/21 10:01 Freq: Status: Active Protocol: Document 06/03/21 09:56 LRN (Rec: 06/03/21 10:40 LRN [id number]) OP-PT Subjective Patient Comments Patient Comments Fell hands out, swelling is down, can bend down a little more, pain is a little less depending if he does anything. PT-OP-J Posture/Palpation/Skin Start: 05/23/21 10:01 Freq: Status: Active Protocol: Document 05/27/21 12:19 MB (Rec: 05/27/21 13:33 MB [id number]) Posture Evaluation Comments Posture Comments Standing posture: forward head , rounded shoulders, Dowager's hump, increased soft tissue abdomen and increased anterior tilt pelvis, decreased to no thoracic kyphosis, B knee flexion in standing with indention distal right tibia from fall, right iliac crest is higher than the left, increased Grecia angle right compared to the left and more lateral foot WB right compared to left. PT-OP-K Range of Motion Start: 05/23/21 10:01 Freq: Status: Active Protocol: Document 06/03/21 09:56 LRN (Rec: 06/03/21 10:40 LRN [id number]) Wrist Goniometric Range of Motion Wrist Right Wrist ROM WFL No Flexion Active (degrees) 20 Extension Active (degrees) 31 Ulnar Deviation Active (degrees) 30 Radial Deviation Active (degrees) 12 PT-OP-M Strength Start: 05/23/21 10:01 Freq: Status: Active Protocol: Document 05/27/21 12:19 MB (Rec: 05/27/21 13:33 MB [id number]) Shoulder Strength Shoulder Manual Muscle Testing Bilateral Flexion 5 Normal Abduction (C5) 5 Normal Elbow/Forearm Strength Elbow and Forearm Manual Muscle Testing Bilateral Flexion (C6) 5 Normal Extension (C7) 5 Normal Pronation 5 Normal Supination 5 Normal Comments *PT grasps at forearm and not at hand or wrist d/t right sided injury Wrist Strength Wrist Manual Muscle Testing Left Flexion (C7) 5 Normal Extension (C6) 5 Normal Ulnar Deviation 5 Normal Radial Deviation 5 Normal Right Comments Deferred d/t painful restricted AROM PT-OP-Q Treatments Start: 05/23/21 10:01 Freq: Status: Active Protocol: Document 06/03/21 09:56 LRN (Rec: 06/03/21 10:40 LRN [id number]) Therapeutic Exercises Sitting Exercises Neck R SB & L rot Sitting Exercise Name Active stretch Reps/Minutes 4' Comments I/S as HEP Wrist UD/RD Sitting Exercise Name Active stretch Reps/Minutes 2' Comments ROM taken, I/S as HEP Wrist flexion stretch Sitting Exercise Name Active stretch Side right Reps/Minutes 3' Comments ROM taken, I/S as HEP Manual Therapy Treatment Soft Tissue Mobilization R dorsal distal forearm Body Location R dorsal distal forarm, interosseous Mobilization Type Strumming Intensity/Depth Moderate Body Position Sitting Joint Mobilizations R Carpels Joint R Carpels Direction PA/AP Body Position Sitting Reps/Duration 10' Self-Care/Home Management Treatment Activities Self-Care/Home Management Activities I/S as HEP active wrist ROM and neck R SB & L rot. PT-OP-R Modalities Start: 06/03/21 08:56 Freq: Status: Active Protocol: Document 06/03/21 09:56 LRN (Rec: 06/03/21 10:40 LRN [id number]) Ultrasound Therapy Treatment R dorsal distal wrist Treatment Duration (minutes) 8 Patient Position Sitting Coupling Medium Ultrasound Gel Applicator Size (cm2) 2 Frequency Setting (mHz) 3 Mode Setting Pulsed Duty Cycle 50% Intensity Setting (w/cm2) 1.0 PT-OP-T Assessment and Plan Start: 05/23/21 10:01 Freq: Status: Active Protocol: Document 06/03/21 09:56 LRN (Rec: 06/03/21 10:40 N [id number]) Physical Therapy Assessment Goals 4 [facility] Goal (LTG) Pt will perform progressive HEP with I including posture, range, and strength exercises to improve functional use of right hand by 07/25/21. 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 LTG Duration 8 weeks (~07/25/21) 2 [employer] Goal (LTG) Pt will present with active right wrist ROM equal to the left to improve ADLs and IADLs by 07/25/21. (06/03/20: Improving, see assessment) LTG Duration 8 weeks (~07/25/21) (06/03/20: Progressing) 1 [facility] Goal (LTG) Pt will present with QuickDASH score reflecting no more than 10% impairment to allow return to work by 07/25/21. LTG Duration 8 weeks (~07/25/21) Assessment Summary Assessment Increase R wrist ARM after treatment: Flex 5 (initial) to 20 deg's; UD 20 (initial) to 30 deg's; RD 10 (initial) to 12 deg's. Physical Therapy Plan Frequency and Duration Frequency of Treatment 2x/Week Duration of Treatment 8 weeks Plan of Care Start Date 05/27/21 Plan of Care End Date 07/25/21 Next Visit Focus/Plan Next Note Type Treatment Note Next Visit Plan Start with R wrist AROM, end w /AROM msmt. Check for hairline fx with tuning fork. Assess pain with AROM. Assess response to US, HEP: active wrist flex ex & neck RSB/Lrot AROM. S/CS for R wrist ext injury. JMT R wrist: radius/ulna inferior glide, PA/AP carpels K-tape for edema. PROM: R wrist sup/pron/UD/RD HEP of wrist PROM and when appropriate strengthening.
--- NOTE | 2021-06-07 16:15 | PT.OTN ---
Current Diagnoses Unspecified injury at unspecified level of cervical spinal cord, initial encounter (06/07/21) Contusion of right shoulder, initial encounter (06/07/21) Unspecified sprain of right wrist, initial encounter (06/07/21) Physical Therapy Treatment Note PT-OP-A Visit Information Start: 05/23/21 10:01 Freq: Status: Active Protocol: Document 06/07/21 15:05 LRN (Rec: 06/07/21 16:11 LRN [id number]) Out-Patient Physical Therapy Visit Information Visit Information Visit Type Treatment Note Visit Start Time 15:05 Visit Stop Time 15:45 Total Visit Minutes 40 Visit Number 3 Evaluation Information Evaluation Date 05/27/21 Precautions Precautions Controlled HBP Pre-diabetic PT-OP-B Current Condition Start: 05/23/21 10:01 Freq: Status: Active Protocol: Document 05/27/21 12:19 MB (Rec: 05/27/21 12:47 MB [id number]) Current Condition History of Current Condition Onset Date 05/03/21 Current Complaints Right wrist with attempting to flex it History of Current Condition On 05/03/21, [place]. He tried to slow his fall with his right hand. He was too far from the rail. He jammed his wrist. He then hit his right shoulder and right leg. He also hit his head. His biggest current complaint is his right wrist. He also has popping and crunching at his neck and some discomfort at neck and right leg where he hit the steps. Pt has not worked since the injury. He doesn't sleep well in general. Now, when he rolls side to side, his neck does crunching and that bothers him . Pt rates pain as 1-2/10 right wrist. PMH includes high BP and obesity. Pt is right handed. Future Testing and Treatments Planned X-ray right wrist: NAD; x-ray right tib/fib: NAD; x-ray right knee: NAD; CT head and brain: NAD and small posterior left scalp hematoma or contusion; CT cervical spine: soft tissues normal, mild calcification at left cartoid bulb Treatment Goals Patient/Caregiver Goals To have right wrist be normal PT-OP-C Subjective Start: 05/23/21 10:01 Freq: Status: Active Protocol: Document 06/07/21 15:05 LRN (Rec: 06/07/21 16:11 LRN [id number]) OP-PT Subjective Patient Comments Patient Comments Last week was most improvement . US might have helped. Not bending still, more sore on top on joint where hard. PT-OP-J Posture/Palpation/Skin Start: 05/23/21 10:01 Freq: Status: Active Protocol: Document 05/27/21 12:19 MB (Rec: 05/27/21 13:33 MB [id number]) Posture Evaluation Comments Posture Comments Standing posture: forward head , rounded shoulders, Dowager's hump, increased soft tissue abdomen and increased anterior tilt pelvis, decreased to no thoracic kyphosis, B knee flexion in standing with indention distal right tibia from fall, right iliac crest is higher than the left, increased Grecia angle right compared to the left and more lateral foot WB right compared to left. PT-OP-K Range of Motion Start: 05/23/21 10:01 Freq: Status: Active Protocol: Document 06/07/21 15:05 LRN (Rec: 06/07/21 16:11 LRN [id number]) Elbow/Forearm Range of Motion Elbow/Forearm Bilateral ROM Testing Position Sitting Pronation (degrees) 90 Comments Supination (deg's): 65 R , 68 L Wrist Goniometric Range of Motion Wrist Left Wrist ROM WFL Yes Flexion Active (degrees) 74 Extension Active (degrees) 56 Ulnar Deviation Active (degrees) 35 Radial Deviation Active (degrees) 17 Right Wrist ROM WFL No Flexion Active (degrees) 32 Extension Active (degrees) 45 Ulnar Deviation Active (degrees) 32 Radial Deviation Active (degrees) 14 PT-OP-M Strength Start: 05/23/21 10:01 Freq: Status: Active Protocol: Document 05/27/21 12:19 MB (Rec: 05/27/21 13:33 MB [id number]) Shoulder Strength Shoulder Manual Muscle Testing Bilateral Flexion 5 Normal Abduction (C5) 5 Normal Elbow/Forearm Strength Elbow and Forearm Manual Muscle Testing Bilateral Flexion (C6) 5 Normal Extension (C7) 5 Normal Pronation 5 Normal Supination 5 Normal Comments *PT grasps at forearm and not at hand or wrist d/t right sided injury Wrist Strength Wrist Manual Muscle Testing Left Flexion (C7) 5 Normal Extension (C6) 5 Normal Ulnar Deviation 5 Normal Radial Deviation 5 Normal Right Comments Deferred d/t painful restricted AROM PT-OP-Q Treatments Start: 05/23/21 10:01 Freq: Status: Active Protocol: Document 06/07/21 15:05 LRN (Rec: 06/07/21 16:11 LRN [id number]) Therapeutic Exercises Sitting Exercises Wrist Sup/pron Sitting Exercise Name Active sup/pron Side right Reps/Minutes 6' Comments AROM taken bilaterally Wrist Ext stretch Sitting Exercise Name Self Passive stretch f/b active stretch Side right Reps/Minutes 5' Comments AROM taken bilaterally Neck R SB & L rot Sitting Exercise Name Active stretch Reps/Minutes 5' Comments v cuing to slow and hold longer Wrist UD/RD Sitting Exercise Name Active stretch f/b AROM exer. Reps/Minutes 6' Comments ROM taken Wrist flexion stretch Sitting Exercise Name Active stretch Side right Reps/Minutes 5' Comments AROM taken, bilaterally Manual Therapy Treatment Soft Tissue Mobilization R wrist Body Location Wrist Extensors Mobilization Type Myofascial Release Intensity/Depth Superficial Body Position Sitting Comments MFR to improve flexion R dorsal distal forearm Body Location R dorsal distal forarm, interosseous Mobilization Type Strumming Intensity/Depth Moderate Body Position Sitting Self-Care/Home Management Treatment Education Patient Education Home Exercise Program Activities Self-Care/Home Management Activities Issued & reviewed HEP: Wrist flex/ext stretch, active wrist flex/ext and PT-OP-R Modalities Start: 06/03/21 08:56 Freq: Status: Active Protocol: Document 06/07/21 15:05 LRN (Rec: 06/07/21 16:11 LRN [id number]) Ultrasound Therapy Treatment R wrist Extensors Treatment Duration (minutes) 4 Patient Position Sitting Coupling Medium Ultrasound Gel Applicator Size (cm2) 2 Frequency Setting (mHz) 1 Mode Setting Continuous Intensity Setting (w/cm2) 1.5 R dorsal distal wrist Treatment Duration (minutes) 8 Patient Position Sitting Coupling Medium Ultrasound Gel Applicator Size (cm2) 2 Frequency Setting (mHz) 3 Mode Setting Pulsed Duty Cycle 50% Intensity Setting (w/cm2) 1.0 PT-OP-T Assessment and Plan Start: 05/23/21 10:01 Freq: Status: Active Protocol: Document 06/07/21 15:05 LRN (Rec: 06/07/21 16:11 LRN [id number]) Physical Therapy Assessment Goals 4 [facility] Goal (LTG) Pt will perform progressive HEP with I including posture, range, and strength exercises to improve functional use of right hand by 07/25/21. 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 LTG Duration 8 weeks (~07/25/21) 2 [employer] The[employer] Goal (LTG) Pt will present with active right wrist ROM equal to the left to improve ADLs and IADLs by 07/25/21. (06/07/20: Improving, see assessment) LTG Duration 8 weeks (~07/25/21) (06/07/20: Progressing) 1 [facility] Goal (LTG) Pt will present with QuickDASH score reflecting no more than 10% impairment to allow return to work by 07/25/21. LTG Duration 8 weeks (~07/25/21) Assessment Summary Assessment Pt had + response to therapy last session and noted improvement (per pt) with ultrasound. Improved R wrist AROM at start and more at end. Pt was negative with testing for fx at wrist with tuning fork. Physical Therapy Plan Frequency and Duration Frequency of Treatment 2x/Week Duration of Treatment 8 weeks Plan of Care Start Date 05/27/21 Plan of Care End Date 07/25/21 Next Visit Focus/Plan Next Note Type Treatment Note Next Visit Plan Postural training of head/neck /back (goal #4). Start with R wrist AROM, end w /AROM msmt. Assess pain with AROM. HEP: neck RSB/Lrot AROM. JMT R wrist: radius/ulna inferior glide, PA/AP carpels K-tape for edema. PROM: R wrist sup/UD/RD. HEP of wrist PROM and if tolerance appropriate, start strengthening.
--- NOTE | 2021-06-07 16:18 | PT.OTN ---
Current Diagnoses Unspecified injury at unspecified level of cervical spinal cord, initial encounter (06/07/21) Contusion of right shoulder, initial encounter (06/07/21) Unspecified sprain of right wrist, initial encounter (06/07/21) Physical Therapy Treatment Note PT-OP-A Visit Information Start: 05/23/21 10:01 Freq: Status: Active Protocol: Document 06/07/21 15:05 LRN (Rec: 06/07/21 16:11 LRN [id number]) Out-Patient Physical Therapy Visit Information Visit Information Visit Type Treatment Note Visit Start Time 15:05 Visit Stop Time 15:45 Total Visit Minutes 40 Visit Number 3 Evaluation Information Evaluation Date 05/27/21 Precautions Precautions Controlled HBP Pre-diabetic PT-OP-B Current Condition Start: 05/23/21 10:01 Freq: Status: Active Protocol: Document 05/27/21 12:19 MB (Rec: 05/27/21 12:47 MB [id number]) Current Condition History of Current Condition Onset Date 05/03/21 Current Complaints Right wrist with attempting to flex it History of Current Condition On 05/03/21, [place]. He tried to slow his fall with his right hand. He was too far from the rail. He jammed his wrist. He then hit his right shoulder and right leg. He also hit his head. His biggest current complaint is his right wrist. He also has popping and crunching at his neck and some discomfort at neck and right leg where he hit the steps. Pt has not worked since the injury. He doesn't sleep well in general. Now, when he rolls side to side, his neck does crunching and that bothers him . Pt rates pain as 1-2/10 right wrist. PMH includes high BP and obesity. Pt is right handed. Future Testing and Treatments Planned X-ray right wrist: NAD; x-ray right tib/fib: NAD; x-ray right knee: NAD; CT head and brain: NAD and small posterior left scalp hematoma or contusion; CT cervical spine: soft tissues normal, mild calcification at left cartoid bulb Treatment Goals Patient/Caregiver Goals To have right wrist be normal PT-OP-C Subjective Start: 05/23/21 10:01 Freq: Status: Active Protocol: Document 06/07/21 15:05 LRN (Rec: 06/07/21 16:11 LRN [id number]) OP-PT Subjective Patient Comments Patient Comments Last week was most improvement . US might have helped. Not bending still, more sore on top on joint where hard. PT-OP-J Posture/Palpation/Skin Start: 05/23/21 10:01 Freq: Status: Active Protocol: Document 05/27/21 12:19 MB (Rec: 05/27/21 13:33 MB [id number]) Posture Evaluation Comments Posture Comments Standing posture: forward head , rounded shoulders, Dowager's hump, increased soft tissue abdomen and increased anterior tilt pelvis, decreased to no thoracic kyphosis, B knee flexion in standing with indention distal right tibia from fall, right iliac crest is higher than the left, increased Grecia angle right compared to the left and more lateral foot WB right compared to left. PT-OP-K Range of Motion Start: 05/23/21 10:01 Freq: Status: Active Protocol: Document 06/07/21 15:05 LRN (Rec: 06/07/21 16:11 LRN [id number]) Elbow/Forearm Range of Motion Elbow/Forearm Bilateral ROM Testing Position Sitting Pronation (degrees) 90 Comments Supination (deg's): 65 R , 68 L Wrist Goniometric Range of Motion Wrist Right s/p treatment Wrist ROM WFL No Flexion Active (degrees) 40 Extension Active (degrees) 52 Ulnar Deviation Active (degrees) 38 Radial Deviation Active (degrees) 15 Left Wrist ROM WFL Yes Flexion Active (degrees) 74 Extension Active (degrees) 56 Ulnar Deviation Active (degrees) 35 Radial Deviation Active (degrees) 17 Right Wrist ROM WFL No Flexion Active (degrees) 32 Extension Active (degrees) 45 Ulnar Deviation Active (degrees) 32 Radial Deviation Active (degrees) 14 ROM Limitations Wrist Limitations of Range of Motion Pain PT-OP-M Strength Start: 05/23/21 10:01 Freq: Status: Active Protocol: Document 05/27/21 12:19 MB (Rec: 05/27/21 13:33 MB [id number]) Shoulder Strength Shoulder Manual Muscle Testing Bilateral Flexion 5 Normal Abduction (C5) 5 Normal Elbow/Forearm Strength Elbow and Forearm Manual Muscle Testing Bilateral Flexion (C6) 5 Normal Extension (C7) 5 Normal Pronation 5 Normal Supination 5 Normal Comments *PT grasps at forearm and not at hand or wrist d/t right sided injury Wrist Strength Wrist Manual Muscle Testing Left Flexion (C7) 5 Normal Extension (C6) 5 Normal Ulnar Deviation 5 Normal Radial Deviation 5 Normal Right Comments Deferred d/t painful restricted AROM PT-OP-Q Treatments Start: 05/23/21 10:01 Freq: Status: Active Protocol: Document 06/07/21 15:05 LRN (Rec: 06/07/21 16:11 LRN [id number]) Therapeutic Exercises Sitting Exercises Wrist Sup/pron Sitting Exercise Name Active sup/pron Side right Reps/Minutes 6' Comments AROM taken bilaterally Wrist Ext stretch Sitting Exercise Name Self Passive stretch f/b active stretch Side right Reps/Minutes 5' Comments AROM taken bilaterally Neck R SB & L rot Sitting Exercise Name Active stretch Reps/Minutes 5' Comments v cuing to slow and hold longer Wrist UD/RD Sitting Exercise Name Active stretch f/b AROM exer. Reps/Minutes 6' Comments ROM taken Wrist flexion stretch Sitting Exercise Name Active stretch Side right Reps/Minutes 5' Comments AROM taken, bilaterally Manual Therapy Treatment Soft Tissue Mobilization R wrist Body Location Wrist Extensors Mobilization Type Myofascial Release Intensity/Depth Superficial Body Position Sitting Comments MFR to improve flexion R dorsal distal forearm Body Location R dorsal distal forarm, interosseous Mobilization Type Strumming Intensity/Depth Moderate Body Position Sitting Self-Care/Home Management Treatment Education Patient Education Home Exercise Program Activities Self-Care/Home Management Activities Issued & reviewed HEP: Wrist flex/ext stretch, active wrist flex/ext and PT-OP-R Modalities Start: 06/03/21 08:56 Freq: Status: Active Protocol: Document 06/07/21 15:05 LRN (Rec: 06/07/21 16:11 LRN [id number]) Ultrasound Therapy Treatment R wrist Extensors Treatment Duration (minutes) 4 Patient Position Sitting Coupling Medium Ultrasound Gel Applicator Size (cm2) 2 Frequency Setting (mHz) 1 Mode Setting Continuous Intensity Setting (w/cm2) 1.5 R dorsal distal wrist Treatment Duration (minutes) 8 Patient Position Sitting Coupling Medium Ultrasound Gel Applicator Size (cm2) 2 Frequency Setting (mHz) 3 Mode Setting Pulsed Duty Cycle 50% Intensity Setting (w/cm2) 1.0 PT-OP-T Assessment and Plan Start: 05/23/21 10:01 Freq: Status: Active Protocol: Document 06/07/21 15:05 LRN (Rec: 06/07/21 16:11 LRN [id number]) Physical Therapy Assessment Goals 4 [facility] Goal (LTG) Pt will perform progressive HEP with I including posture, range, and strength exercises to improve functional use of right hand by 07/25/21. 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 LTG Duration 8 weeks (~07/25/21) 2 [facility] Goal (LTG) Pt will present with active right wrist ROM equal to the left to improve ADLs and IADLs by 07/25/21. (06/07/20: Improving, see assessment) LTG Duration 8 weeks (~07/25/21) (06/07/20: Progressing) 1 [facility] Goal (LTG) Pt will present with QuickDASH score reflecting no more than 10% impairment to allow return to work by 07/25/21. LTG Duration 8 weeks (~07/25/21) Assessment Summary Assessment Pt had + response to therapy last session and noted improvement (per pt) with ultrasound. Improved R wrist AROM at start and more at end. Pt was negative with testing for fx at wrist with tuning fork. Physical Therapy Plan Frequency and Duration Frequency of Treatment 2x/Week Duration of Treatment 8 weeks Plan of Care Start Date 05/27/21 Plan of Care End Date 07/25/21 Next Visit Focus/Plan Next Note Type Treatment Note Next Visit Plan Postural training of head/neck /back (goal #4). Start with R wrist AROM, end w /AROM msmt. Assess pain with AROM. HEP: neck RSB/Lrot AROM. JMT R wrist: radius/ulna inferior glide, PA/AP carpels K-tape for edema. PROM: R wrist sup/UD/RD. HEP of wrist PROM and if tolerance appropriate, start strengthening.
--- NOTE | 2021-06-10 14:37 | PT.OTN ---
Current Diagnoses Unspecified injury at unspecified level of cervical spinal cord, initial encounter (06/10/21) Contusion of right shoulder, initial encounter (06/10/21) Unspecified sprain of right wrist, initial encounter (06/10/21) Physical Therapy Treatment Note PT-OP-A Visit Information Start: 05/23/21 10:01 Freq: Status: Active Protocol: Document 06/10/21 13:30 LRN (Rec: 06/10/21 14:35 LRN [id number]) Out-Patient Physical Therapy Visit Information Visit Information Visit Type Treatment Note Visit Start Time 13:30 Visit Stop Time 14:18 Total Visit Minutes 48 Visit Number 4 Evaluation Information Evaluation Date 05/27/21 Precautions Precautions Controlled HBP Pre-diabetic PT-OP-B Current Condition Start: 05/23/21 10:01 Freq: Status: Active Protocol: Document 05/27/21 12:19 MB (Rec: 05/27/21 12:47 MB [id number]) Current Condition History of Current Condition Onset Date 05/03/21 Current Complaints Right wrist with attempting to flex it History of Current Condition On 05/03/21, [place]. He tried to slow his fall with his right hand. He was too far from the rail. He jammed his wrist. He then hit his right shoulder and right leg. He also hit his head. His biggest current complaint is his right wrist. He also has popping and crunching at his neck and some discomfort at neck and right leg where he hit the steps. Pt has not worked since the injury. He doesn't sleep well in general. Now, when he rolls side to side, his neck does crunching and that bothers him . Pt rates pain as 1-2/10 right wrist. PMH includes high BP and obesity. Pt is right handed. Future Testing and Treatments Planned X-ray right wrist: NAD; x-ray right tib/fib: NAD; x-ray right knee: NAD; CT head and brain: NAD and small posterior left scalp hematoma or contusion; CT cervical spine: soft tissues normal, mild calcification at left cartoid bulb Treatment Goals Patient/Caregiver Goals To have right wrist be normal PT-OP-C Subjective Start: 05/23/21 10:01 Freq: Status: Active Protocol: Document 06/10/21 13:30 LRN (Rec: 06/10/21 14:35 LRN [id number]) OP-PT Subjective Patient Comments Patient Comments Pain -06/23, no change. States he is now able to open a door (turning handle without pain) Patient Reported Progress Same PT-OP-J Posture/Palpation/Skin Start: 05/23/21 10:01 Freq: Status: Active Protocol: Document 05/27/21 12:19 MB (Rec: 05/27/21 13:33 MB [id number]) Posture Evaluation Comments Posture Comments Standing posture: forward head , rounded shoulders, Dowager's hump, increased soft tissue abdomen and increased anterior tilt pelvis, decreased to no thoracic kyphosis, B knee flexion in standing with indention distal right tibia from fall, right iliac crest is higher than the left, increased Grecia angle right compared to the left and more lateral foot WB right compared to left. PT-OP-K Range of Motion Start: 05/23/21 10:01 Freq: Status: Active Protocol: Document 06/10/21 13:30 LRN (Rec: 06/10/21 14:35 LRN [id number]) Wrist Goniometric Range of Motion Wrist Right Wrist ROM WFL No Flexion Active (degrees) 55 Flexion Passive (degrees) 62 Extension Active (degrees) 55 Ulnar Deviation Active (degrees) 37 Radial Deviation Active (degrees) 25 PT-OP-M Strength Start: 05/23/21 10:01 Freq: Status: Active Protocol: Document 05/27/21 12:19 MB (Rec: 05/27/21 13:33 MB [id number]) Shoulder Strength Shoulder Manual Muscle Testing Bilateral Flexion 5 Normal Abduction (C5) 5 Normal Elbow/Forearm Strength Elbow and Forearm Manual Muscle Testing Bilateral Flexion (C6) 5 Normal Extension (C7) 5 Normal Pronation 5 Normal Supination 5 Normal Comments *PT grasps at forearm and not at hand or wrist d/t right sided injury Wrist Strength Wrist Manual Muscle Testing Left Flexion (C7) 5 Normal Extension (C6) 5 Normal Ulnar Deviation 5 Normal Radial Deviation 5 Normal Right Comments Deferred d/t painful restricted AROM PT-OP-Q Treatments Start: 05/23/21 10:01 Freq: Status: Active Protocol: Document 06/10/21 13:30 LRN (Rec: 06/10/21 14:35 LRN [id number]) Therapeutic Exercises Sitting Exercises Scapular depression/retraction Sitting Exercise Name Postural training and awareness w/scap depression/ retraction Side bilateral Reps/Minutes 3' Wrist Sup/pron Sitting Exercise Name Assisted sup stretch Side right Reps/Minutes 3' Wrist Ext stretch Sitting Exercise Name Assisted stretch f/b active stretch Side right Reps/Minutes 8' Comments AROM taken Neck R SB & L rot Sitting Exercise Name Active stretch Reps/Minutes 4' Comments v cuing to slow and hold longer Wrist UD/RD Sitting Exercise Name Assisted stretch f/b AROM exer . Side right Reps/Minutes 10' Comments ROM taken Wrist flexion stretch Sitting Exercise Name Passive assisted stretch, f/b active stretch Side right Reps/Minutes 8' Comments AROM taken. MH used with stretch Self-Care/Home Management Treatment Education Patient Education Home Exercise Program Other Education Briefly discussed proper head/ neck posturing and verbally added scapular depression/ retraction ex. to improve posture Activities Self-Care/Home Management Activities Issued & reviewed HEP: Contrast bath treatment. PT-OP-R Modalities Start: 06/03/21 08:56 Freq: Status: Active Protocol: Document 06/10/21 13:30 LRN (Rec: 06/10/21 14:35 [facility] [id number]) Ultrasound Therapy Treatment R wrist Extensors Treatment Duration (minutes) 4 Patient Position Sitting Coupling Medium Ultrasound Gel Applicator Size (cm2) 2 Frequency Setting (mHz) 1 Mode Setting Continuous Intensity Setting (w/cm2) 1.5 R dorsal distal wrist Treatment Duration (minutes) 4 Patient Position Sitting Coupling Medium Ultrasound Gel Applicator Size (cm2) 2 Frequency Setting (mHz) 3 Mode Setting Pulsed Duty Cycle 50% Intensity Setting (w/cm2) 1.0 PT-OP-T Assessment and Plan Start: 05/23/21 10:01 Freq: Status: Active Protocol: Document 06/10/21 13:30 LRN (Rec: 06/10/21 14:35 [facility] [id number]) Physical Therapy Assessment Goals 4 Fpc Goal (LTG) Pt will perform progressive HEP with I including posture, range, and strength exercises to improve functional use of right hand by 07/25/21. (06/07/21: Progressed onto HEP of ROM exs) (06/10/21: Scap depr/retract for posture) LTG Duration 8 weeks (~07/25/21) 3 Fpc Goal (LTG) Pt will present with dominant right basket sorter strength at least equal to the left to prepare for work tasks by 07/25/21. LTG Duration 8 weeks (~07/25/21) 2 Handtools Repairer Goal (LTG) Pt will present with active right wrist ROM equal to the left to improve ADLs and IADLs by 07/25/21. (06/07/20: Improving, see assessment) LTG Duration 8 weeks (~07/25/21) (06/07/20: Progressing) 1 Fpc Goal (LTG) Pt will present with QuickDASH score reflecting no more than 10% impairment to allow return to work by 07/25/21. LTG Duration 8 weeks (~07/25/21) Progress Towards Goals Progress Comments Improved ability to carry light groceries (~10# without pain) and turn a door knob without pain. Assessment Summary Assessment Althout pt states no change he has had significant increase in wrist mobility after stretching. His R wrist mobility is normal except with wrist flex. Today after treatment is 55 deg's (L is 74 deg's). The pt is also reporting improved function ( see progress comments above). His carpal bones appear to have good mobility but might need MWM during stretching for wrist extension. Pt is probably ready to begin strengthening. Physical Therapy Plan Frequency and Duration Frequency of Treatment 2x/Week Duration of Treatment 8 weeks Plan of Care Start Date 05/27/21 Plan of Care End Date 07/25/21 Next Visit Focus/Plan Next Note Type Treatment Note Next Visit Plan Start with R wrist AROM measurement, and after stretching for wrist flexion. Assess pain with AROM. Check neck ROM and if needed, issue HEP: neck RSB/Lrot AROM. JMT R wrist: radius/ulna inferior glide K-tape for edema. PROM: R wrist flex/sup. HEP of wrist strengthening.
--- NOTE | 2021-06-13 11:30 | PT-OP ANOTE ---
Pt cx due to [place] Virus concerns
--- NOTE | 2021-06-16 15:55 | PT.OTN ---
Current Diagnoses Unspecified injury at unspecified level of cervical spinal cord, initial encounter (06/16/21) Contusion of right shoulder, initial encounter (06/16/21) Unspecified sprain of right wrist, initial encounter (06/16/21) Physical Therapy Treatment Note PT-OP-A Visit Information Start: 05/23/21 10:01 Freq: Status: Active Protocol: Document 06/16/21 13:31 LRN (Rec: 06/16/21 14:25 LRN [id number]) Out-Patient Physical Therapy Visit Information Visit Information Visit Type Treatment Note Visit Start Time 13:31 Visit Stop Time 14:15 Total Visit Minutes 44 Visit Number 5 Evaluation Information Evaluation Date 05/27/21 Precautions Precautions Controlled HBP Pre-diabetic PT-OP-B Current Condition Start: 05/23/21 10:01 Freq: Status: Active Protocol: Document 05/27/21 12:19 MB (Rec: 05/27/21 12:47 MB [id number]) Current Condition History of Current Condition Onset Date 05/03/21 Current Complaints Right wrist with attempting to flex it History of Current Condition On 05/03/21, [place]. He tried to slow his fall with his right hand. He was too far from the rail. He jammed his wrist. He then hit his right shoulder and right leg. He also hit his head. His biggest current complaint is his right wrist. He also has popping and crunching at his neck and some discomfort at neck and right leg where he hit the steps. Pt has not worked since the injury. He doesn't sleep well in general. Now, when he rolls side to side, his neck does crunching and that bothers him . Pt rates pain as 1-2/10 right wrist. PMH includes high BP and obesity. Pt is right handed. Future Testing and Treatments Planned X-ray right wrist: NAD; x-ray right tib/fib: NAD; x-ray right knee: NAD; CT head and brain: NAD and small posterior left scalp hematoma or contusion; CT cervical spine: soft tissues normal, mild calcification at left cartoid bulb Treatment Goals Patient/Caregiver Goals To have right wrist be normal PT-OP-C Subjective Start: 05/23/21 10:01 Freq: Status: Active Protocol: Document 06/16/21 13:31 LRN (Rec: 06/16/21 14:25 [facility] [id number]) OP-PT Subjective Patient Comments Patient Comments Some soreness, Hasn't been wearing his brace as much. Stiff with soreness at R wrist after therapy. PT-OP-J Posture/Palpation/Skin Start: 05/23/21 10:01 Freq: Status: Active Protocol: Document 05/27/21 12:19 MB (Rec: 05/27/21 13:33 MB [id number]) Posture Evaluation Comments Posture Comments Standing posture: forward head , rounded shoulders, Dowager's hump, increased soft tissue abdomen and increased anterior tilt pelvis, decreased to no thoracic kyphosis, B knee flexion in standing with indention distal right tibia from fall, right iliac crest is higher than the left, increased Grecia angle right compared to the left and more lateral foot WB right compared to left. PT-OP-K Range of Motion Start: 05/23/21 10:01 Freq: Status: Active Protocol: Document 06/16/21 13:31 LRN (Rec: 06/16/21 14:25 [facility] [id number]) Wrist Goniometric Range of Motion Wrist Right s/p treatment Wrist ROM WFL No Flexion Active (degrees) 57 Extension Active (degrees) 58 Extension Passive (degrees) 75 Left Wrist ROM WFL Yes Flexion Active (degrees) 74 Extension Active (degrees) 56 Right Wrist ROM WFL No Flexion Active (degrees) 45 Flexion Passive (degrees) 55 Extension Active (degrees) 58 PT-OP-M Strength Start: 05/23/21 10:01 Freq: Status: Active Protocol: Document 05/27/21 12:19 MB (Rec: 05/27/21 13:33 MB [id number]) Shoulder Strength Shoulder Manual Muscle Testing Bilateral Flexion 5 Normal Abduction (C5) 5 Normal Elbow/Forearm Strength Elbow and Forearm Manual Muscle Testing Bilateral Flexion (C6) 5 Normal Extension (C7) 5 Normal Pronation 5 Normal Supination 5 Normal Comments *PT grasps at forearm and not at hand or wrist d/t right sided injury Wrist Strength Wrist Manual Muscle Testing Left Flexion (C7) 5 Normal Extension (C6) 5 Normal Ulnar Deviation 5 Normal Radial Deviation 5 Normal Right Comments Deferred d/t painful restricted AROM PT-OP-Q Treatments Start: 05/23/21 10:01 Freq: Status: Active Protocol: Document 06/16/21 13:31 LRN (Rec: 06/16/21 14:25 LRN [id number]) Therapeutic Exercises Sitting Exercises Wrist Sup/pron Sitting Exercise Name Assisted sup stretch f/b active stretch Side right Reps/Minutes 3' x 2 of stretch f/b active stretch Wrist Ext stretch Sitting Exercise Name Assisted stretch f/b active stretch Side right Reps/Minutes 4' Comments AROM taken Wrist flexion stretch Sitting Exercise Name Passive assisted stretch, f/b active stretch Side right Reps/Minutes 4'x 4 of stretch f/b active stretch Comments AROM taken. MH used with stretch Manual Therapy Treatment Joint Mobilizations Radioulnar jt Joint R Radioulnar jt Direction distal to proximal Grade II Body Position Sitting Reps/Duration 3' R Carpal unar/radial jt Joint Carpel ulnar/radial jt Direction PA Grade III Reps/Duration 3' R Carpels Joint PA of R Scaphoid, Lunate, and Trapezoid Direction P>A Grade II Body Position Sitting Reps/Duration 10' Self-Care/Home Management Treatment Education Patient Education Home Exercise Program Activities Self-Care/Home Management Activities I/S pt to focus on improving R wrist flex ROM and may start light lifting of R hand for flex/ext ex. PT-OP-R Modalities Start: 06/03/21 08:56 Freq: Status: Active Protocol: Document 06/16/21 13:31 LRN (Rec: 06/16/21 14:25 LRN [id number]) Ultrasound Therapy Treatment R wrist Extensors Treatment Duration (minutes) 3 Patient Position Sitting Coupling Medium Ultrasound Gel Applicator Size (cm2) 2 Frequency Setting (mHz) 1 Mode Setting Continuous Intensity Setting (w/cm2) 1.5 R dorsal distal wrist Treatment Duration (minutes) 5 Patient Position Sitting Coupling Medium Ultrasound Gel Applicator Size (cm2) 2 Frequency Setting (mHz) 3 Mode Setting Pulsed Duty Cycle 50% Intensity Setting (w/cm2) 1.0 PT-OP-T Assessment and Plan Start: 05/23/21 10:01 Freq: Status: Active Protocol: Document 06/16/21 13:31 LRN (Rec: 06/16/21 14:25 LRN [id number]) Physical Therapy Assessment Goals 4 [facility]iary Goal (LTG) Pt will perform progressive HEP with I including posture, range, and strength exercises to improve functional use of right hand by 07/25/21. (06/07/21: Progressed onto HEP of ROM exs) (06/10/21: Scap depr/retract for posture) LTG Duration 8 weeks (~07/25/21) 3 Penit[facility]iary Goal (LTG) Pt will present with dominant right stock repairer strength at least equal to the left to prepare for work tasks by 07/25/21. LTG Duration 8 weeks (~07/25/21) 2 [facility]iary Goal (LTG) Pt will present with active right wrist ROM equal to the left to improve ADLs and IADLs by 07/25/21. (06/07/20: Improving, see assessment) LTG Duration 8 weeks (~07/25/21) (06/07/20: Progressing) 1 Client Server Programmer Goal (LTG) Pt will present with QuickDASH score reflecting no more than 10% impairment to allow return to work by 07/25/21. LTG Duration 8 weeks (~07/25/21) Assessment Summary Assessment PT demonstrates improved R wrist flex AROM after therapy. To start he showed no significant increase in active wrist flex. Pt has good PROM ; therefore he lacks wrist ext strength. The pt's Lunat appeared dorsally displaced, but was easily mobilized to neutral, decreasing pain with wrist flexion. Pt R wrist ROM good except flex & Sup; therefore might start switching focus to strengthening if AROM improved . Physical Therapy Plan Frequency and Duration Frequency of Treatment 2x/Week Duration of Treatment 8 weeks Plan of Care Start Date 05/27/21 Plan of Care End Date 07/25/21 Next Visit Focus/Plan Next Note Type Treatment Note Next Visit Plan Start with R wrist AROM measurement, and after stretching for wrist flexion. Assess pain with AROM. Check neck ROM and if needed, issue HEP: neck RSB/Lrot AROM. JMT R wrist: radius/ulna inferior glide K-tape for edema. PROM: R wrist flex/sup. Start and issue HEP of wrist strengthening.
--- NOTE | 2021-06-20 17:08 | PT.OTN ---
Current Diagnoses Unspecified injury at unspecified level of cervical spinal cord, initial encounter (06/20/21) Contusion of right shoulder, initial encounter (06/20/21) Unspecified sprain of right wrist, initial encounter (06/20/21) Physical Therapy Treatment Note PT-OP-A Visit Information Start: 05/23/21 10:01 Freq: Status: Active Protocol: Document 06/20/21 12:47 LRN (Rec: 06/20/21 13:21 LRN [id number]) Out-Patient Physical Therapy Visit Information Visit Information Visit Type Treatment Note Visit Start Time 12:47 Visit Stop Time 13:26 Total Visit Minutes 49 Visit Number 6 Evaluation Information Evaluation Date 05/27/21 Precautions Precautions Controlled HBP Pre-diabetic PT-OP-B Current Condition Start: 05/23/21 10:01 Freq: Status: Active Protocol: Document 05/27/21 12:19 MB (Rec: 05/27/21 12:47 MB [id number]) Current Condition History of Current Condition Onset Date 05/03/21 Current Complaints Right wrist with attempting to flex it History of Current Condition On 05/03/21, [place]. He tried to slow his fall with his right hand. He was too far from the rail. He jammed his wrist. He then hit his right shoulder and right leg. He also hit his head. His biggest current complaint is his right wrist. He also has popping and crunching at his neck and some discomfort at neck and right leg where he hit the steps. Pt has not worked since the injury. He doesn't sleep well in general. Now, when he rolls side to side, his neck does crunching and that bothers him . Pt rates pain as 1-2/10 right wrist. PMH includes high BP and obesity. Pt is right handed. Future Testing and Treatments Planned X-ray right wrist: NAD; x-ray right tib/fib: NAD; x-ray right knee: NAD; CT head and brain: NAD and small posterior left scalp hematoma or contusion; CT cervical spine: soft tissues normal, mild calcification at left cartoid bulb Treatment Goals Patient/Caregiver Goals To have right wrist be normal PT-OP-C Subjective Start: 05/23/21 10:01 Freq: Status: Active Protocol: Document 06/20/21 12:47 LRN (Rec: 06/20/21 13:21 LRN [id number]) OP-PT Subjective Patient Comments Patient Comments No change. PT-OP-J Posture/Palpation/Skin Start: 05/23/21 10:01 Freq: Status: Active Protocol: Document 05/27/21 12:19 MB (Rec: 05/27/21 13:33 MB [id number]) Posture Evaluation Comments Posture Comments Standing posture: forward head , rounded shoulders, Dowager's hump, increased soft tissue abdomen and increased anterior tilt pelvis, decreased to no thoracic kyphosis, B knee flexion in standing with indention distal right tibia from fall, right iliac crest is higher than the left, increased Grecia angle right compared to the left and more lateral foot WB right compared to left. PT-OP-K Range of Motion Start: 05/23/21 10:01 Freq: Status: Active Protocol: Document 06/20/21 12:47 LRN (Rec: 06/20/21 13:21 LRN [id number]) Wrist Goniometric Range of Motion Wrist Right s/p treatment Wrist ROM WFL No Flexion Active (degrees) 55 Extension Active (degrees) 57 Right Wrist ROM WFL No Flexion Active (degrees) 54 Flexion Passive (degrees) 55 Extension Active (degrees) 55 Ulnar Deviation Active (degrees) 33 Radial Deviation Active (degrees) 20 PT-OP-M Strength Start: 05/23/21 10:01 Freq: Status: Active Protocol: Document 05/27/21 12:19 MB (Rec: 05/27/21 13:33 MB [id number]) Shoulder Strength Shoulder Manual Muscle Testing Bilateral Flexion 5 Normal Abduction (C5) 5 Normal Elbow/Forearm Strength Elbow and Forearm Manual Muscle Testing Bilateral Flexion (C6) 5 Normal Extension (C7) 5 Normal Pronation 5 Normal Supination 5 Normal Comments *PT grasps at forearm and not at hand or wrist d/t right sided injury Wrist Strength Wrist Manual Muscle Testing Left Flexion (C7) 5 Normal Extension (C6) 5 Normal Ulnar Deviation 5 Normal Radial Deviation 5 Normal Right Comments Deferred d/t painful restricted AROM PT-OP-Q Treatments Start: 05/23/21 10:01 Freq: Status: Active Protocol: Document 06/20/21 12:47 LRN (Rec: 06/20/21 13:21 LRN [id number]) Therapeutic Exercises Sitting Exercises Gina R wrist flex/ext Sitting Exercise Name Gina wrist ext & flex in various ext positions (forearm neutral) Side right Reps/Minutes 5-10 H x 5 each side in 4 positions. Comments Gina holds done same side & alternating sides. Wrist Ext stretch Sitting Exercise Name Assisted stretch Side right Reps/Minutes 4' Comments AROM taken Wrist flexion stretch Sitting Exercise Name Passive assisted stretch, f/b active stretch Side right Reps/Minutes 4'x 4 of stretch f/b active stretch Comments AROM taken. MH used with stretch Manual Therapy Treatment Joint Mobilizations Radioulnar jt Joint R Radioulnar jt Direction proximal to distal Grade II Body Position Sitting Reps/Duration 4' R Carpal unar/radial jt Joint Carpel ulnar/radial jt Direction PA Grade III Reps/Duration 12' R Carpels Joint PA of all R carpel bones except for Lunate Direction P>A Grade II Body Position Sitting Reps/Duration 3-5x each PT-OP-R Modalities Start: 06/03/21 08:56 Freq: Status: Active Protocol: Document 06/20/21 12:47 LRN (Rec: 06/20/21 16:56 [facility] [id number]) Hot Pack/Cold Pack Treatment Cold Pack Location R wrist Patient Position Sitting Treatment Duration (minutes) 10 Patient Tolerance Good PT-OP-T Assessment and Plan Start: 05/23/21 10:01 Freq: Status: Active Protocol: Document 06/20/21 12:47 LRN (Rec: 06/20/21 13:21 [facility] [id number]) Physical Therapy Assessment Goals 4 Nursing Home Goal (LTG) Pt will perform progressive HEP with I including posture, range, and strength exercises to improve functional use of right hand by 07/25/21. (06/07/21: Progressed onto HEP of ROM exs) (06/10/21: Scap depr/retract for posture) LTG Duration 8 weeks (~07/25/21) 3 Nursing Home Goal (LTG) Pt will present with dominant right qualifications examiner strength at least equal to the left to prepare for work tasks by 07/25/21. LTG Duration 8 weeks (~07/25/21) 2 Nursing Home Goal (LTG) Pt will present with active right wrist ROM equal to the left to improve ADLs and IADLs by 07/25/21. (06/07/20: Improving, see assessment) LTG Duration 8 weeks (~07/25/21) (06/07/20: Progressing) 1 Nursing Home Goal (LTG) Pt will present with QuickDASH score reflecting no more than 10% impairment to allow return to work by 07/25/21. LTG Duration 8 weeks (~07/25/21) Assessment Summary Assessment No significant change post therapy probably due to irritation from JMT. Pt didn 't maintain his improved R wrist mobility from the last session. Pt not doing hot/ cold baths enough. Pt had a palpable click around the scaphoid/lunate region; therefore it appears he may have instabilty at Scaphoid/ lunate joint. Gina stabilization ex's needed. Physical Therapy Plan Frequency and Duration Frequency of Treatment 2x/Week Duration of Treatment 8 weeks Plan of Care Start Date 05/27/21 Plan of Care End Date 07/25/21 Next Visit Focus/Plan Next Note Type Treatment Note Next Visit Plan Start with R wrist AROM measurement, and after stretching for wrist flexion. Assess pain with AROM. ?K-tape for edema. Check neck ROM and if needed, issue HEP: neck RSB/Lrot AROM. JMT R wrist: radius/ulna inferior glide PROM: R wrist flex/sup. Start and issue HEP of wrist strengthening.
--- NOTE | 2021-06-23 16:43 | PT.OTN ---
Current Diagnoses Unspecified injury at unspecified level of cervical spinal cord, initial encounter (06/23/21) Contusion of right shoulder, initial encounter (06/23/21) Unspecified sprain of right wrist, initial encounter (06/23/21) Physical Therapy Treatment Note PT-OP-A Visit Information Start: 05/23/21 10:01 Freq: Status: Active Protocol: Document 06/23/21 13:00 LRN (Rec: 06/23/21 13:49 LRN [id number]) Out-Patient Physical Therapy Visit Information Visit Information Visit Type Treatment Note Visit Start Time 13:00 Visit Stop Time 13:43 Total Visit Minutes 43 Visit Number 7 Evaluation Information Evaluation Date 05/27/21 Precautions Precautions Controlled HBP Pre-diabetic PT-OP-B Current Condition Start: 05/23/21 10:01 Freq: Status: Active Protocol: Document 05/27/21 12:19 MB (Rec: 05/27/21 12:47 MB [id number]) Current Condition History of Current Condition Onset Date 05/03/21 Current Complaints Right wrist with attempting to flex it History of Current Condition On 05/03/21, [place]. He tried to slow his fall with his right hand. He was too far from the rail. He jammed his wrist. He then hit his right shoulder and right leg. He also hit his head. His biggest current complaint is his right wrist. He also has popping and crunching at his neck and some discomfort at neck and right leg where he hit the steps. Pt has not worked since the injury. He doesn't sleep well in general. Now, when he rolls side to side, his neck does crunching and that bothers him . Pt rates pain as 1-2/10 right wrist. PMH includes high BP and obesity. Pt is right handed. Future Testing and Treatments Planned X-ray right wrist: NAD; x-ray right tib/fib: NAD; x-ray right knee: NAD; CT head and brain: NAD and small posterior left scalp hematoma or contusion; CT cervical spine: soft tissues normal, mild calcification at left cartoid bulb Treatment Goals Patient/Caregiver Goals To have right wrist be normal PT-OP-C Subjective Start: 05/23/21 10:01 Freq: Status: Active Protocol: Document 06/23/21 13:00 LRN (Rec: 06/23/21 13:49 LRN [id number]) OP-PT Subjective Patient Comments Patient Comments States he is dealing with a cyst behind is neck. Woke this morning to redness/ soreness. Was given an injection of lidocaine. PT-OP-J Posture/Palpation/Skin Start: 05/23/21 10:01 Freq: Status: Active Protocol: Document 05/27/21 12:19 MB (Rec: 05/27/21 13:33 MB [id number]) Posture Evaluation Comments Posture Comments Standing posture: forward head , rounded shoulders, Dowager's hump, increased soft tissue abdomen and increased anterior tilt pelvis, decreased to no thoracic kyphosis, B knee flexion in standing with indention distal right tibia from fall, right iliac crest is higher than the left, increased Grecia angle right compared to the left and more lateral foot WB right compared to left. PT-OP-K Range of Motion Start: 05/23/21 10:01 Freq: Status: Active Protocol: Document 06/23/21 13:00 LRN (Rec: 06/23/21 13:49 LRN [id number]) Wrist Goniometric Range of Motion Wrist Right s/p treatment Wrist ROM WFL No Flexion Active (degrees) 60 Right Wrist ROM WFL No Flexion Active (degrees) 50 Extension Active (degrees) 58 Ulnar Deviation Active (degrees) 32 Radial Deviation Active (degrees) 15 PT-OP-M Strength Start: 05/23/21 10:01 Freq: Status: Active Protocol: Document 05/27/21 12:19 MB (Rec: 05/27/21 13:33 MB [id number]) Shoulder Strength Shoulder Manual Muscle Testing Bilateral Flexion 5 Normal Abduction (C5) 5 Normal Elbow/Forearm Strength Elbow and Forearm Manual Muscle Testing Bilateral Flexion (C6) 5 Normal Extension (C7) 5 Normal Pronation 5 Normal Supination 5 Normal Comments *PT grasps at forearm and not at hand or wrist d/t right sided injury Wrist Strength Wrist Manual Muscle Testing Left Flexion (C7) 5 Normal Extension (C6) 5 Normal Ulnar Deviation 5 Normal Radial Deviation 5 Normal Right Comments Deferred d/t painful restricted AROM PT-OP-Q Treatments Start: 05/23/21 10:01 Freq: Status: Active Protocol: Document 06/23/21 13:00 LRN (Rec: 06/23/21 13:49 LRN [id number]) Therapeutic Exercises Sitting Exercises Gina R wrist flex/ext Sitting Exercise Name Gina wrist flex in various ext positions (forearm neutral) Side right Reps/Minutes 5-10 H x 2 each side in 6 positions. Manual Therapy Treatment Joint Mobilizations R ulna Joint R Ulna Direction Distal to proximal mob Grade III Body Position Sitting Reps/Duration 3' throughout therapy R radius Joint R Radius Direction Distal to proximal mob Grade III Body Position Sitting Reps/Duration 3' throughout therapy Radioulnar jt Joint R Radioulnar jt Direction proximal to distal Grade II Body Position Sitting Reps/Duration 4' x 2 R Carpal unar/radial jt Joint Carpel ulnar/radial jt Direction PA Grade III Reps/Duration 10' R Carpels Joint PA of all R carpel bones except for Lunate Direction P>A Grade II Body Position Sitting Reps/Duration 3-5x each Self-Care/Home Management Treatment Education Patient Education Home Exercise Program Activities Self-Care/Home Management Activities I/S pt to do Isometric flex ex in various ranges from full tolerated flex to full tolerated extension. PT-OP-R Modalities Start: 06/03/21 08:56 Freq: Status: Active Protocol: Document 06/20/21 12:47 LRN (Rec: 06/20/21 16:56 LR [id number]) Hot Pack/Cold Pack Treatment Cold Pack Location R wrist Patient Position Sitting Treatment Duration (minutes) 10 Patient Tolerance Good PT-OP-T Assessment and Plan Start: 05/23/21 10:01 Freq: Status: Active Protocol: Document 06/23/21 13:00 LRN (Rec: 06/23/21 13:49 [facility] [id number]) Physical Therapy Assessment Goals 4 Head Gauge Unit Operator Goal (LTG) Pt will perform progressive HEP with I including posture, range, and strength exercises to improve functional use of right hand by 07/25/21. (06/07/21: Progressed onto HEP of ROM exs) (06/10/21: Scap depr/retract for posture) LTG Duration 8 weeks (~07/25/21) 3 Nursing Home Goal (LTG) Pt will present with dominant right uptwister tender strength at least equal to the left to prepare for work tasks by 07/25/21. LTG Duration 8 weeks (~07/25/21) 2 Head Gauge Unit Operator Goal (LTG) Pt will present with active right wrist ROM equal to the left to improve ADLs and IADLs by 07/25/21. (06/07/20: Improving, see assessment) LTG Duration 8 weeks (~07/25/21) (06/07/20: Progressing) 1 Nursing Home Goal (LTG) Pt will present with QuickDASH score reflecting no more than 10% impairment to allow return to work by 07/25/21. LTG Duration 8 weeks (~07/25/21) Assessment Summary Assessment Pt improved with active R wrist flexion after treatment. He has less pain with active wrist ROM with volar to dorsal (A>P) [place] of Capitate , Scaphoid, Lunate with active extension. Pt felt greater ease of mvmt of the R wrist with flex/ext after JMT's. Physical Therapy Plan Frequency and Duration Frequency of Treatment 2x/Week Duration of Treatment 8 weeks Plan of Care Start Date 05/27/21 Plan of Care End Date 07/25/21 Next Visit Focus/Plan Next Note Type Treatment Note Next Visit Plan Start with R wrist AROM measurement, and after stretching for wrist flexion. Assess HEP of R wrist gina strengthening ex (issue HEP), progress strengthening as tolerated. Assess pain with AROM. ?K-tape for edema. Check neck recovery from cyst & if needed-ROM, Issue HEP: neck RSB/L rot AROM . JMT R wrist: radius/ulna distal to proximal glide and with MWM for wrist flex/ext. PROM: R wrist flex/sup. Start and issue HEP of wrist strengthening.
--- NOTE | 2021-06-27 14:55 | PT.OTN ---
Current Diagnoses Unspecified injury at unspecified level of cervical spinal cord, initial encounter (06/27/21) Contusion of right shoulder, initial encounter (06/27/21) Unspecified sprain of right wrist, initial encounter (06/27/21) Physical Therapy Treatment Note PT-OP-A Visit Information Start: 05/23/21 10:01 Freq: Status: Active Protocol: Document 06/27/21 12:54 LRN (Rec: 06/27/21 13:34 LRN [id number]) Out-Patient Physical Therapy Visit Information Visit Information Visit Type Treatment Note Visit Start Time 12:54 Visit Stop Time 13:34 Total Visit Minutes 40 Visit Number 8 Evaluation Information Evaluation Date 05/27/21 Precautions Precautions Controlled HBP Pre-diabetic PT-OP-B Current Condition Start: 05/23/21 10:01 Freq: Status: Active Protocol: Document 05/27/21 12:19 MB (Rec: 05/27/21 12:47 MB [id number]) Current Condition History of Current Condition Onset Date 05/03/21 Current Complaints Right wrist with attempting to flex it History of Current Condition On 05/03/21, [place]. He tried to slow his fall with his right hand. He was too far from the rail. He jammed his wrist. He then hit his right shoulder and right leg. He also hit his head. His biggest current complaint is his right wrist. He also has popping and crunching at his neck and some discomfort at neck and right leg where he hit the steps. Pt has not worked since the injury. He doesn't sleep well in general. Now, when he rolls side to side, his neck does crunching and that bothers him . Pt rates pain as 1-2/10 right wrist. PMH includes high BP and obesity. Pt is right handed. Future Testing and Treatments Planned X-ray right wrist: NAD; x-ray right tib/fib: NAD; x-ray right knee: NAD; CT head and brain: NAD and small posterior left scalp hematoma or contusion; CT cervical spine: soft tissues normal, mild calcification at left cartoid bulb Treatment Goals Patient/Caregiver Goals To have right wrist be normal PT-OP-C Subjective Start: 05/23/21 10:01 Freq: Status: Active Protocol: Document 06/27/21 12:54 LRN (Rec: 06/27/21 13:34 LRN [id number]) OP-PT Subjective Patient Comments Patient Comments Not feeling much different. Played basketball Horse. Not a lot of power. PT-OP-J Posture/Palpation/Skin Start: 05/23/21 10:01 Freq: Status: Active Protocol: Document 05/27/21 12:19 MB (Rec: 05/27/21 13:33 MB [id number]) Posture Evaluation Comments Posture Comments Standing posture: forward head , rounded shoulders, Dowager's hump, increased soft tissue abdomen and increased anterior tilt pelvis, decreased to no thoracic kyphosis, B knee flexion in standing with indention distal right tibia from fall, right iliac crest is higher than the left, increased Grecia angle right compared to the left and more lateral foot WB right compared to left. PT-OP-K Range of Motion Start: 05/23/21 10:01 Freq: Status: Active Protocol: Document 06/27/21 12:54 LRN (Rec: 06/27/21 13:34 LRN [id number]) Wrist Goniometric Range of Motion Wrist Right s/p treatment Wrist ROM WFL No Flexion Active (degrees) 70 Extension Active (degrees) 58 Left Wrist ROM WFL Yes Flexion Active (degrees) 75 Extension Active (degrees) 60 Right Wrist ROM WFL No Flexion Active (degrees) 58 Extension Active (degrees) 53 Ulnar Deviation Active (degrees) 28 Radial Deviation Active (degrees) 15 PT-OP-M Strength Start: 05/23/21 10:01 Freq: Status: Active Protocol: Document 05/27/21 12:19 MB (Rec: 05/27/21 13:33 MB [id number]) Shoulder Strength Shoulder Manual Muscle Testing Bilateral Flexion 5 Normal Abduction (C5) 5 Normal Elbow/Forearm Strength Elbow and Forearm Manual Muscle Testing Bilateral Flexion (C6) 5 Normal Extension (C7) 5 Normal Pronation 5 Normal Supination 5 Normal Comments *PT grasps at forearm and not at hand or wrist d/t right sided injury Wrist Strength Wrist Manual Muscle Testing Left Flexion (C7) 5 Normal Extension (C6) 5 Normal Ulnar Deviation 5 Normal Radial Deviation 5 Normal Right Comments Deferred d/t painful restricted AROM PT-OP-Q Treatments Start: 05/23/21 10:01 Freq: Status: Active Protocol: Document 06/27/21 12:54 LRN (Rec: 06/27/21 13:34 LR [id number]) Therapeutic Exercises Sitting Exercises Gina R wrist flex/ext Sitting Exercise Name Gina wrist flex in various ext positions (forearm neutral) Side right Reps/Minutes 5-10 H x 2 each side in 6 positions. Wrist flexion stretch Sitting Exercise Name Passive assisted stretch, f/b active stretch Side right Reps/Minutes 4'x 4 of stretch f/b active stretch Comments AROM taken. MH used with stretch Manual Therapy Treatment Joint Mobilizations R ulna Joint R Ulna Direction Distal to proximal mob Grade III Body Position Sitting Reps/Duration 3' throughout therapy R radius Joint R Radius Direction Distal to proximal mob Grade III Body Position Sitting Reps/Duration 3' throughout therapy Radioulnar jt Joint R Radioulnar jt Direction proximal to distal Grade II Body Position Sitting Reps/Duration 4' x 2 R Carpal unar/radial jt Joint Carpel ulnar/radial jt Direction PA Grade III Reps/Duration 10' R Carpels Joint PA of all R carpel bones except for Lunate Direction P>A Grade II Body Position Sitting Reps/Duration 3-5x each Manual Traction R wrist distraction Details R wrist distraction Body Position Sitting Reps/Duration 2' PT-OP-R Modalities Start: 06/03/21 08:56 Freq: Status: Active Protocol: Document 06/20/21 12:47 LRN (Rec: 06/20/21 16:56 LR [id number]) Hot Pack/Cold Pack Treatment Cold Pack Location R wrist Patient Position Sitting Treatment Duration (minutes) 10 Patient Tolerance Good PT-OP-T Assessment and Plan Start: 05/23/21 10:01 Freq: Status: Active Protocol: Document 06/27/21 12:54 LRN (Rec: 06/27/21 13:34 [facility] [id number]) Physical Therapy Assessment Goals 4 Skilled Nursing Goal (LTG) Pt will perform progressive HEP with I including posture, range, and strength exercises to improve functional use of right hand by 07/25/21. 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 LTG Duration 8 weeks (~07/25/21) 2 Spice Blender Goal (LTG) Pt will present with active right wrist ROM equal to the left to improve ADLs and IADLs by 07/25/21. (06/07/20: Improving, see assessment) LTG Duration 8 weeks (~07/25/21) (06/27/21: Progressing) 1 Spice Blender Goal (LTG) Pt will present with QuickDASH score reflecting no more than 10% impairment to allow return to work by 07/25/21. LTG Duration 8 weeks (~07/25/21) Progress Towards Goals Progress Comments R wrist flex to start 58 to end 70 R wrist ext to start 58 to 58end L wrist flex 75 , 60 ext. Assessment Summary Assessment Pt flared with ext and UD after playing basketball horse, causing increased R wrist pain. Pt R wrist AROM was improved (to start) with flex, but decreased in ext, but after therapy increased range in both directions. Physical Therapy Plan Frequency and Duration Frequency of Treatment 2x/Week Duration of Treatment 8 weeks Plan of Care Start Date 05/27/21 Plan of Care End Date 07/25/21 Next Visit Focus/Plan Next Note Type Treatment Note Next Visit Plan Start with R wrist AROM measurement, and after stretching for wrist flexion. Pt to complete UE QuickDASH and assess strength if pt recovered from flare up. Assess HEP of R wrist gina strengthening ex (issue HEP), progress strengthening as tolerated. Assess pain with AROM. ?K-tape for edema. Check neck recovery from cyst & if needed-ROM, Issue HEP: neck RSB/L rot AROM . JMT R wrist: radius/ulna distal to proximal glide and with MWM for wrist flex/ext. PROM: R wrist flex/sup. Start and issue HEP of wrist strengthening.
--- NOTE | 2021-06-30 16:44 | PT.OTN ---
Current Diagnoses Unspecified injury at unspecified level of cervical spinal cord, initial encounter (06/30/21) Contusion of right shoulder, initial encounter (06/30/21) Unspecified sprain of right wrist, initial encounter (06/30/21) Physical Therapy Treatment Note PT-OP-A Visit Information Start: 05/23/21 10:01 Freq: Status: Active Protocol: Document 06/30/21 13:02 LRN (Rec: 06/30/21 13:47 LRN [id number]) Out-Patient Physical Therapy Visit Information Visit Information Visit Type Treatment Note Visit Note Visit Start Time 13:02 Visit Stop Time 13:46 Total Visit Minutes 44 Visit Number 9 Evaluation Information Evaluation Date 05/27/21 Precautions Precautions Controlled HBP Pre-diabetic PT-OP-B Current Condition Start: 05/23/21 10:01 Freq: Status: Active Protocol: Document 05/27/21 12:19 MB (Rec: 05/27/21 12:47 MB [id number]) Current Condition History of Current Condition Onset Date 05/03/21 Current Complaints Right wrist with attempting to flex it History of Current Condition On 05/03/21, [place]. He tried to slow his fall with his right hand. He was too far from the rail. He jammed his wrist. He then hit his right shoulder and right leg. He also hit his head. His biggest current complaint is his right wrist. He also has popping and crunching at his neck and some discomfort at neck and right leg where he hit the steps. Pt has not worked since the injury. He doesn't sleep well in general. Now, when he rolls side to side, his neck does crunching and that bothers him . Pt rates pain as 1-2/10 right wrist. PMH includes high BP and obesity. Pt is right handed. Future Testing and Treatments Planned X-ray right wrist: NAD; x-ray right tib/fib: NAD; x-ray right knee: NAD; CT head and brain: NAD and small posterior left scalp hematoma or contusion; CT cervical spine: soft tissues normal, mild calcification at left cartoid bulb Treatment Goals Patient/Caregiver Goals To have right wrist be normal PT-OP-C Subjective Start: 05/23/21 10:01 Freq: Status: Active Protocol: Document 06/30/21 13:02 LRN (Rec: 06/30/21 13:47 LRN [id number]) OP-PT Subjective Patient Comments Patient Comments No change. Neck isn't feeling as crunchy PT-OP-J Posture/Palpation/Skin Start: 05/23/21 10:01 Freq: Status: Active Protocol: Document 05/27/21 12:19 MB (Rec: 05/27/21 13:33 MB [id number]) Posture Evaluation Comments Posture Comments Standing posture: forward head , rounded shoulders, Dowager's hump, increased soft tissue abdomen and increased anterior tilt pelvis, decreased to no thoracic kyphosis, B knee flexion in standing with indention distal right tibia from fall, right iliac crest is higher than the left, increased Grecia angle right compared to the left and more lateral foot WB right compared to left. PT-OP-K Range of Motion Start: 05/23/21 10:01 Freq: Status: Active Protocol: Document 06/30/21 13:02 LRN (Rec: 06/30/21 13:47 LRN [id number]) Wrist Goniometric Range of Motion Wrist Right Wrist ROM WFL No Flexion Active (degrees) 55 Extension Active (degrees) 55 PT-OP-M Strength Start: 05/23/21 10:01 Freq: Status: Active Protocol: Document 05/27/21 12:19 MB (Rec: 05/27/21 13:33 MB [id number]) Shoulder Strength Shoulder Manual Muscle Testing Bilateral Flexion 5 Normal Abduction (C5) 5 Normal Elbow/Forearm Strength Elbow and Forearm Manual Muscle Testing Bilateral Flexion (C6) 5 Normal Extension (C7) 5 Normal Pronation 5 Normal Supination 5 Normal Comments *PT grasps at forearm and not at hand or wrist d/t right sided injury Wrist Strength Wrist Manual Muscle Testing Left Flexion (C7) 5 Normal Extension (C6) 5 Normal Ulnar Deviation 5 Normal Radial Deviation 5 Normal Right Comments Deferred d/t painful restricted AROM PT-OP-Q Treatments Start: 05/23/21 10:01 Freq: Status: Active Protocol: Document 06/30/21 13:02 LRN (Rec: 06/30/21 13:47 LRN [id number]) Therapeutic Exercises Sitting Exercises Wrist Ext strengthening Sitting Exercise Name Ext strengthening Side right Equipment Used Lev 1 TB Reps/Minutes 8x Wrist Flex strengthening Sitting Exercise Name Flex strengthening Side right Equipment Used Lev 1 Reps/Minutes 8x Gina R wrist flex/ext Sitting Exercise Name Gina wrist flex in various ext positions (forearm neutral) Side right Reps/Minutes 5-10 H x 2 each side in 6 positions. Wrist Ext stretch Sitting Exercise Name Self Assisted stretch Side right Reps/Minutes 4' Comments AROM taken Wrist UD/RD Sitting Exercise Name R wrist UD/RD strengtheniing Side right Equipment Used Lev 1 TB Reps/Minutes 8x each Wrist flexion stretch Sitting Exercise Name Passive assisted stretch, f/b active stretch Side right Reps/Minutes 4'x 4 of stretch f/b active stretch Comments AROM taken. MH used with stretch Manual Therapy Treatment Soft Tissue Mobilization R wrist Body Location R wrist extensors Mobilization Type Strumming Intensity/Depth Moderate Body Position Sitting Joint Mobilizations R ulna Joint R Ulna Direction Proximal to distal mob Grade III Body Position Sitting Reps/Duration 2'throughout therapy R radius Joint R Radius Direction Proximal to distal mob Grade III Body Position Sitting Reps/Duration 2'throughout therapy Radioulnar jt Joint Radioulnar jt Direction PA of Radius on Ulna Grade II Body Position Sitting Reps/Duration 3' R Carpal unar/radial jt Joint Carpel ulnar/radial jt Direction PA Grade III Reps/Duration 10' R Carpels Joint PA of all R carpel bones except for Lunate Direction P>A Grade II Body Position Sitting Reps/Duration 2-3x each Manual Traction R wrist distraction Details R wrist distraction Body Position Sitting Reps/Duration 2' Manual Techniques MWM Type Wrist ext/fex with radius/ulna glide distal and Scaph/lunate Volar>Dorsal. Body Location R wrist Body Position Sitting Reps/Duration 3' Self-Care/Home Management Treatment Education Patient Education Home Exercise Program Activities Self-Care/Home Management Activities I/S and issued and reviewed ex using Lev 1 TBand for strengthening of R wrist flex/ ext/UD/RD. PT-OP-R Modalities Start: 06/03/21 08:56 Freq: Status: Active Protocol: Document 06/30/21 13:02 LRN (Rec: 06/30/21 13:47 LRN [id number]) Ultrasound Therapy Treatment R wrist Extensors Treatment Duration (minutes) 4 Patient Position Sitting Coupling Medium Ultrasound Gel Applicator Size (cm2) 2 Frequency Setting (mHz) 1 Mode Setting Continuous Intensity Setting (w/cm2) 1.5 Comments Wrist placed on wrist flex stretch. R dorsal distal wrist Treatment Duration (minutes) 4 Patient Position Sitting Coupling Medium Ultrasound Gel Applicator Size (cm2) 2 Frequency Setting (mHz) 3 Mode Setting Pulsed Duty Cycle 50% Intensity Setting (w/cm2) 1.0 PT-OP-T Assessment and Plan Start: 05/23/21 10:01 Freq: Status: Active Protocol: Document 06/30/21 13:02 LRN (Rec: 06/30/21 13:47 LRN [id number]) Physical Therapy Assessment Goals 4 Senior Care Goal (LTG) Pt will perform progressive HEP with I including posture, range, and strength exercises to improve functional use of right hand by 07/25/21. (06/07/21: Progressed onto HEP of ROM exs) (06/10/21: Scap depr/retract for posture) (06/30/21: I/S pt in R wrist strengthening flex/ext/UD/RD with Lev 1 TB). 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 LTG Duration 8 weeks (~07/25/21) 2 Foaming Machine Operator Goal (LTG) Pt will present with active right wrist ROM equal to the left to improve ADLs and IADLs by 07/25/21. (06/07/20: Improving, see assessment) LTG Duration 8 weeks (~07/25/21) (06/27/21: Progressing) 1 Foaming Machine Operator Goal (LTG) Pt will present with QuickDASH score reflecting no more than 10% impairment to allow return to work by 07/25/21. LTG Duration 8 weeks (~07/25/21) Progress Towards Goals Progress Comments Progressed HEP. Assessment Summary Assessment Pt appears to have a good understanding of his gina R wrist flex/ext strengthening. Able to tolerate strengthening with TBand and no onset of R wrist pain. Pt is having stiffness in the dorsal R wrist with ROM. Some discomfort in wrist extensor ms belly with active ext. Physical Therapy Plan Frequency and Duration Frequency of Treatment 2x/Week Duration of Treatment 8 weeks Plan of Care Start Date 05/27/21 Plan of Care End Date 07/25/21 Next Visit Focus/Plan Next Note Type Progress Note Next Visit Plan Start with R wrist AROM measurement, and after stretching for wrist flexion. Pt to complete UE QuickDASH and assess strength if pt recovered from flare up. Assess: R wrist flex/sup. Assess HEP of R wrist TBand strengthening ex (issue HEP), progress strengthening as tolerated. Add HEP: Gripping with TPutty. ?K-tape for edema. Check neck recovery from cyst & if needed-ROM, Issue HEP: neck RSB/L rot AROM .
--- NOTE | 2021-07-01 16:27 | PT-OP ANOTE ---
Discussed with pt plan of care of treatment time initially set for 8 weeks (up to 07/25/21). Discussed recovery times variable per person and his focus needs to be on improving wrist mobility. Discussed that typically L&I requires input from referring physician and that Dr. Bah is believed to be able to visualize PT notes. Pt informed he can schedule his PT visits thus far up to 07/25/21.
--- NOTE | 2021-07-07 14:26 | PT.OTN ---
Current Diagnoses Unspecified injury at unspecified level of cervical spinal cord, initial encounter (07/07/21) Contusion of right shoulder, initial encounter (07/07/21) Unspecified sprain of right wrist, initial encounter (07/07/21) Physical Therapy Treatment Note PT-OP-A Visit Information Start: 05/23/21 10:01 Freq: Status: Active Protocol: Document 07/07/21 13:03 LRN (Rec: 07/07/21 14:25 LRN [id number]) Out-Patient Physical Therapy Visit Information Visit Information Visit Type Progress Note Visit Start Time 13:03 Visit Stop Time 13:53 Total Visit Minutes 50 Visit Number 10 Evaluation Information Evaluation Date 05/27/21 Precautions Precautions Controlled HBP Pre-diabetic PT-OP-B Current Condition Start: 05/23/21 10:01 Freq: Status: Active Protocol: Document 05/27/21 12:19 MB (Rec: 05/27/21 12:47 MB [id number]) Current Condition History of Current Condition Onset Date 05/03/21 Current Complaints Right wrist with attempting to flex it History of Current Condition On 05/03/21, [place]. He tried to slow his fall with his right hand. He was too far from the rail. He jammed his wrist. He then hit his right shoulder and right leg. He also hit his head. His biggest current complaint is his right wrist. He also has popping and crunching at his neck and some discomfort at neck and right leg where he hit the steps. Pt has not worked since the injury. He doesn't sleep well in general. Now, when he rolls side to side, his neck does crunching and that bothers him . Pt rates pain as 1-2/10 right wrist. PMH includes high BP and obesity. Pt is right handed. Future Testing and Treatments Planned X-ray right wrist: NAD; x-ray right tib/fib: NAD; x-ray right knee: NAD; CT head and brain: NAD and small posterior left scalp hematoma or contusion; CT cervical spine: soft tissues normal, mild calcification at left cartoid bulb Treatment Goals Patient/Caregiver Goals To have right wrist be normal PT-OP-C Subjective Start: 05/23/21 10:01 Freq: Status: Active Protocol: Document 07/07/21 13:03 LRN (Rec: 07/07/21 14:25 LRN [id number]) OP-PT Subjective Patient Comments Patient Comments Got a heat pad and so may have a litte more mobility. Patient Questionnaires Quick Dash- Upper Extremity Quick Dash UE Score 25 Quick Dash UE Impairment 20 to 39% Impaired (Score 20- 39) OP-PT Pain Assessment Pain Assessment Grid Paper Pain Assessment Grid Completed Yes Location Volar R wrist Pain Location Details Volar side of R wrist Intensity 2 Scale Used Numeric (0 - 10) Pain Duration During stretching Variations/Patterns Dorsal wrist pain with WBing PT-OP-J Posture/Palpation/Skin Start: 05/23/21 10:01 Freq: Status: Active Protocol: Document 05/27/21 12:19 MB (Rec: 05/27/21 13:33 MB [id number]) Posture Evaluation Comments Posture Comments Standing posture: forward head , rounded shoulders, Dowager's hump, increased soft tissue abdomen and increased anterior tilt pelvis, decreased to no thoracic kyphosis, B knee flexion in standing with indention distal right tibia from fall, right iliac crest is higher than the left, increased Grecia angle right compared to the left and more lateral foot WB right compared to left. PT-OP-K Range of Motion Start: 05/23/21 10:01 Freq: Status: Active Protocol: Document 07/07/21 13:03 LRN (Rec: 07/07/21 14:25 LRN [id number]) Wrist Goniometric Range of Motion Wrist Right s/p treatment Wrist ROM WFL No Flexion Active (degrees) 60 Extension Active (degrees) 65 Left Wrist ROM WFL Yes Flexion Active (degrees) 75 Extension Active (degrees) 60 Ulnar Deviation Active (degrees) 30 Radial Deviation Active (degrees) 18 Right Wrist ROM WFL No Flexion Active (degrees) 53 Extension Active (degrees) 50 Ulnar Deviation Active (degrees) 30 Radial Deviation Active (degrees) 17 PT-OP-M Strength Start: 05/23/21 10:01 Freq: Status: Active Protocol: Document 07/07/21 13:03 LRN (Rec: 07/07/21 14:25 LRN [id number]) Hand Play Reader/Pinch Strength Hand Dominance Hand Dominance Right Hand Strength Right Comments Play Reader (kgs), 3 trials: 40, 40, 40 (avg is 40 kgs) Left Comments Play Reader (kgs), 3 trials: 42, 38, 38 (avg is 39 kgs) PT-OP-Q Treatments Start: 05/23/21 10:01 Freq: Status: Active Protocol: Document 07/07/21 13:03 LRN (Rec: 07/07/21 14:25 [facility] [id number]) Therapeutic Exercises Sitting Exercises Gripping Sitting Exercise Name Gripping Equipment Used Hand dynomometer Reps/Minutes 5' Comments See master sonar technician msmts taken Gina R wrist flex/ext Sitting Exercise Name Gina wrist flex in various ext positions (forearm neutral) Side right Reps/Minutes 12' Comments Done with self resist and with hand on wall for wrist ext Wrist Ext stretch Sitting Exercise Name Self Assisted stretch Side right Reps/Minutes 10' Comments AROM taken Wrist flexion stretch Sitting Exercise Name Passive assisted stretch, f/b active stretch Side right Reps/Minutes 10' Comments AROM taken. MH used with stretch Standing Exercises WBing through R wrist Standing Exercise Name R UE WBing (pt able to WB 105# ) Side right Reps/Minutes 10' Manual Therapy Treatment Joint Mobilizations R ulna Joint R Ulna Direction Proximal to distal mob Body Position Standing Reps/Duration 3' total done in conjunction with R radius mob R radius Joint R Radius Direction Proximal to distal mob Body Position Standing Reps/Duration 3' total done in conjunction with R radius mob R Carpels Joint PA of scaphoid and radial side of lunate w/wrist ext Direction P>A Grade II Body Position Sitting Reps/Duration 5' PT-OP-R Modalities Start: 06/03/21 08:56 Freq: Status: Active Protocol: Document 06/30/21 13:02 LRN (Rec: 06/30/21 13:47 [facility] [id number]) Ultrasound Therapy Treatment R wrist Extensors Treatment Duration (minutes) 4 Patient Position Sitting Coupling Medium Ultrasound Gel Applicator Size (cm2) 2 Frequency Setting (mHz) 1 Mode Setting Continuous Intensity Setting (w/cm2) 1.5 Comments Wrist placed on wrist flex stretch. R dorsal distal wrist Treatment Duration (minutes) 4 Patient Position Sitting Coupling Medium Ultrasound Gel Applicator Size (cm2) 2 Frequency Setting (mHz) 3 Mode Setting Pulsed Duty Cycle 50% Intensity Setting (w/cm2) 1.0 PT-OP-T Assessment and Plan Start: 05/23/21 10:01 Freq: Status: Active Protocol: Document 07/07/21 13:03 LRN (Rec: 07/07/21 14:25 LRN [id number]) Physical Therapy Assessment Rehab Potential Rehabilitation Potential Good Evaluation Complexity Number of Personal Factors/Comorbidities 1-2 Number of Body Systems Impaired 4 or More Clinical Presentation at Evaluation Evolving Impairments Impairments Activity Tolerance,Edema, Functional Activities,Pain, Posture,ROM,Soft Tissue Mobility,Strength Other Impairments Pt denies paresthesias. Personal factors include pt cannot work d/t injury and has not had MRI of right wrist despite injury and visual and palpable changes. Body systems affected include musculoskeletal and lymphatic. His clinical presentation is stable to evolving. Goals 4 Impairment Lacks self care HEP Area Plant Manager Goal (LTG) Pt will perform progressive HEP with I including posture, range, and strength exercises to improve functional use of right hand by 07/25/21. (06/07/21: Progressed onto HEP of ROM exs) (06/10/21: Scap depr/retract for posture) (06/30/21: I/S pt in R wrist strengthening flex/ext/UD/RD with Lev 1 TB). LTG Duration 09/05/21 (06/30/21: Progressed) 3 Impairment Decreased R master sonar technician strength Impairment Norm values: males age 45-49, avg master sonar technician strength is 49.7 R, 45.7 L. Area Plant Manager Goal (LTG) Pt will present with dominant right master sonar technician strength at least equal to the left to prepare for work tasks by 07/25/21. (07/07/21: Avg Play Reader strength ( kgs): 40 R, 39 L, pt is R hand dominant). LTG Duration 09/05/21 (07/07/21: Strength of R hand improving) 2 Impairment Decreased R wrist AROM Care Home Goal (LTG) Pt will present with active right wrist ROM equal to the left with pt able to return to gym workout without R wrist pain by 07/25/21. (06/07/20: Improving, see assessment) (07/07/21: Pt has a little R wrist pain pushing self off from bed in morning when he used to not be able to. Able to toilet without R wrist pain ; no longer wears R wrist brace driving or with any ADLs ). LTG Duration 09/05/21 (07/07/21: Improved function, ROM remains limited ) 1 Impairment Decreased function of R wrist Care Home Goal (LTG) Pt will present with QuickDASH score reflecting no more than 10% impairment to allow return to work by 09/05/21. (07/07/21: UE QuickDASH score is 25 = 20-39% impaired). LTG Duration 09/05/21 (07/07/21: Progressing) Progress Towards Goals Progress Comments -Improved function per UE QuickDASH score of 25, 20-39% impaired (was 38, 60-79% impaired) and per subjective report. -Play Reader strength improving. Avg is R 40 kg, L 39 kg (males age 45-49, avg master sonar technician strength is 49.7 R, 45.7 L). - HEP is progressed as tolerated. Assessment Summary Assessment Pt has attended 9 physical therapy treatments and has shown good progress with improving his R wrist ROM and functional strength/use. He continues to show progress and appears consistent with his home exercises. The pt will benefit from continued skilled physical therapy to further his R wrist mobility, strength and functional abilities of his R hand/wrist/arm. Physical Therapy Plan Frequency and Duration Frequency of Treatment 2x/Week Duration of Treatment 8 weeks Plan of Care Start Date 07/07/21 Plan of Care End Date 09/05/21 Therapeutic Interventions Therapeutic Interventions Home Exercise Program,Joint Mobilizations,Manual Therapy, Neuromuscular Re-education, Patient/Caregiver Education, Self-Care/Home Management,Soft Tissue Mobilization,Taping, Therapeutic Activities, Therapeutic Exercises Modalities Cold Pack/Ice Massage,Electric Stimulation,Hot Packs, Ultrasound Next Visit Focus/Plan Next Note Type Treatment Note Next Visit Plan Start with R wrist AROM measurement, and again after stretching for wrist flexion. Assess strength if pt recovered from flare up. Assess: R wrist flex/sup. Assess HEP of R wrist TBand strengthening ex (issue HEP), progress strengthening as tolerated. Add HEP: Gripping with TPutty. ?K-tape for edema. Check neck recovery from cyst & if needed-ROM, Issue HEP: neck RSB/L rot AROM .
--- NOTE | 2021-07-07 14:27 | PT.OPPOC ---
Physical, Occupational & Speech Therapy At [facility] Current Diagnoses Unspecified injury at unspecified level of cervical spinal cord, initial encounter (07/07/21) Contusion of right shoulder, initial encounter (07/07/21) Unspecified sprain of right wrist, initial encounter (07/07/21) Visit Care Team Role Provider Type Rob Beard MD Primary Care Provider Non-Staff Specialty: Internal Medicine Address: [address] [place] [address], [id number] Email: Munir Bah MD Attending Provider Physician Referring Provider Specialty: Internal Medicine Address: [address] [place] [address], [id number] Email: [email or web address] Plan Of Care PT-OP-T Assessment and Plan Start: 05/23/21 10:01 Freq: Status: Active Protocol: Document 07/07/21 13:03 LRN (Rec: 07/07/21 14:25 LRN [id number]) Physical Therapy Assessment Rehab Potential Rehabilitation Potential Good Evaluation Complexity Number of Personal Factors/Comorbidities 1-2 Number of Body Systems Impaired 4 or More Clinical Presentation at Evaluation Evolving Impairments Impairments Activity Tolerance,Edema, Functional Activities,Pain, Posture,ROM,Soft Tissue Mobility,Strength Other Impairments Pt denies paresthesias. Personal factors include pt cannot work d/t injury and has not had MRI of right wrist despite injury and visual and palpable changes. Body systems affected include musculoskeletal and lymphatic. His clinical presentation is stable to evolving. Goals 4 Impairment Lacks self care HEP Monotypist Goal (LTG) Pt will perform progressive HEP with I including posture, range, and strength exercises to improve functional use of right hand by 07/25/21. (06/07/21: Progressed onto HEP of ROM exs) (06/10/21: Scap depr/retract for posture) (06/30/21: I/S pt in R wrist strengthening flex/ext/UD/RD with Lev 1 TB). LTG Duration 09/05/21 (06/30/21: Progressed) 3 Impairment Decreased R cereal chemist strength Impairment Norm values: males age 45-49, avg cereal chemist strength is 49.7 R, 45.7 L. Chcf Goal (LTG) Pt will present with dominant right cereal chemist strength at least equal to the left to prepare for work tasks by 07/25/21. (07/07/21: Avg Poultry Vaccinator strength ( kgs): 40 R, 39 L, pt is R hand dominant). LTG Duration 09/05/21 (07/07/21: Strength of R hand improving) 2 Impairment Decreased R wrist AROM Chcf Goal (LTG) Pt will present with active right wrist ROM equal to the left with pt able to return to gym workout without R wrist pain by 07/25/21. (06/07/20: Improving, see assessment) (07/07/21: Pt has a little R wrist pain pushing self off from bed in morning when he used to not be able to. Able to toilet without R wrist pain ; no longer wears R wrist brace driving or with any ADLs ). LTG Duration 09/05/21 (07/07/21: Improved function, ROM remains limited ) 1 Impairment Decreased function of R wrist Chcf Goal (LTG) Pt will present with QuickDASH score reflecting no more than 10% impairment to allow return to work by 09/05/21. (07/07/21: UE QuickDASH score is 25 = 20-39% impaired). LTG Duration 09/05/21 (07/07/21: Progressing) Progress Towards Goals Progress Comments -Improved function per UE QuickDASH score of 25, 20-39% impaired (was 38, 60-79% impaired) and per subjective report. -Poultry Vaccinator strength improving. Avg is R 40 kg, L 39 kg (males age 45-49, avg cereal chemist strength is 49.7 R, 45.7 L). - HEP is progressed as tolerated. Assessment Summary Assessment Pt has attended 9 physical therapy treatments and has shown good progress with improving his R wrist ROM and functional strength/use. He continues to show progress and appears consistent with his home exercises. The pt will benefit from continued skilled physical therapy to further his R wrist mobility, strength and functional abilities of his R hand/wrist/arm. Physical Therapy Plan Frequency and Duration Frequency of Treatment 2x/Week Duration of Treatment 8 weeks Plan of Care Start Date 07/07/21 Plan of Care End Date 09/05/21 Therapeutic Interventions Therapeutic Interventions Home Exercise Program,Joint Mobilizations,Manual Therapy, Neuromuscular Re-education, Patient/Caregiver Education, Self-Care/Home Management,Soft Tissue Mobilization,Taping, Therapeutic Activities, Therapeutic Exercises Modalities Cold Pack/Ice Massage,Electric Stimulation,Hot Packs, Ultrasound Next Visit Focus/Plan Next Note Type Treatment Note Next Visit Plan Start with R wrist AROM measurement, and again after stretching for wrist flexion. Assess strength if pt recovered from flare up. Assess: R wrist flex/sup. Assess HEP of R wrist TBand strengthening ex (issue HEP), progress strengthening as tolerated. Add HEP: Gripping with TPutty. ?K-tape for edema. Check neck recovery from cyst & if needed-ROM, Issue HEP: neck RSB/L rot AROM . Plan of Care Dates Plan of Care Start Date 07/07/21 Plan of Care End Date 09/05/21 Electronically Signed by: Consuelo Garrett, PT 07/07/21 [id number] Please Sign and Return: I have reviewed this Plan of Care and certify that the skilled therapy services above are required to meet the patient?s needs. Physician Signature Date Printed Name and Credentials Clinical Instructor Signature Printed Name and Credentials
--- NOTE | 2021-07-11 17:07 | PT.OTN ---
Current Diagnoses Unspecified injury at unspecified level of cervical spinal cord, initial encounter (07/11/21) Contusion of right shoulder, initial encounter (07/11/21) Unspecified sprain of right wrist, initial encounter (07/11/21) Physical Therapy Treatment Note PT-OP-A Visit Information Start: 05/23/21 10:01 Freq: Status: Active Protocol: Document 07/11/21 13:03 LRN (Rec: 07/11/21 13:48 LRN [id number]) Out-Patient Physical Therapy Visit Information Visit Information Visit Type Treatment Note Visit Note 1 after PN Visit Start Time 13:03 Visit Stop Time 13:45 Total Visit Minutes 42 Visit Number 11 Evaluation Information Evaluation Date 05/27/21 Precautions Precautions Controlled HBP Pre-diabetic PT-OP-B Current Condition Start: 05/23/21 10:01 Freq: Status: Active Protocol: Document 05/27/21 12:19 MB (Rec: 05/27/21 12:47 MB [id number]) Current Condition History of Current Condition Onset Date 05/03/21 Current Complaints Right wrist with attempting to flex it History of Current Condition On 05/03/21, [place]. He tried to slow his fall with his right hand. He was too far from the rail. He jammed his wrist. He then hit his right shoulder and right leg. He also hit his head. His biggest current complaint is his right wrist. He also has popping and crunching at his neck and some discomfort at neck and right leg where he hit the steps. Pt has not worked since the injury. He doesn't sleep well in general. Now, when he rolls side to side, his neck does crunching and that bothers him . Pt rates pain as 1-2/10 right wrist. PMH includes high BP and obesity. Pt is right handed. Future Testing and Treatments Planned X-ray right wrist: NAD; x-ray right tib/fib: NAD; x-ray right knee: NAD; CT head and brain: NAD and small posterior left scalp hematoma or contusion; CT cervical spine: soft tissues normal, mild calcification at left cartoid bulb Treatment Goals Patient/Caregiver Goals To have right wrist be normal PT-OP-C Subjective Start: 05/23/21 10:01 Freq: Status: Active Protocol: Document 07/11/21 13:03 LRN (Rec: 07/11/21 13:48 LRN [id number]) OP-PT Subjective Patient Comments Patient Comments States his dorsal wrist seems more swollen, but he has been stretching more and notes more swelling. He is planning on enrolling for the pool for aerobic ex in the water. PT-OP-J Posture/Palpation/Skin Start: 05/23/21 10:01 Freq: Status: Active Protocol: Document 05/27/21 12:19 MB (Rec: 05/27/21 13:33 MB [id number]) Posture Evaluation Comments Posture Comments Standing posture: forward head , rounded shoulders, Dowager's hump, increased soft tissue abdomen and increased anterior tilt pelvis, decreased to no thoracic kyphosis, B knee flexion in standing with indention distal right tibia from fall, right iliac crest is higher than the left, increased Grecia angle right compared to the left and more lateral foot WB right compared to left. PT-OP-K Range of Motion Start: 05/23/21 10:01 Freq: Status: Active Protocol: Document 07/11/21 13:03 LRN (Rec: 07/11/21 13:48 LRN [id number]) Wrist Goniometric Range of Motion Wrist Left Wrist ROM WFL Yes Flexion Active (degrees) 75 Extension Active (degrees) 60 Ulnar Deviation Active (degrees) 30 Radial Deviation Active (degrees) 18 Right Wrist ROM WFL No Flexion Active (degrees) 55 Extension Active (degrees) 60 Ulnar Deviation Active (degrees) 32 Radial Deviation Active (degrees) 18 PT-OP-M Strength Start: 05/23/21 10:01 Freq: Status: Active Protocol: Document 07/07/21 13:03 LRN (Rec: 07/07/21 14:25 LRN [id number]) Hand Pearl Maker/Pinch Strength Hand Dominance Hand Dominance Right Hand Strength Right Comments Pearl Maker (kgs), 3 trials: 40, 40, 40 (avg is 40 kgs) Left Comments Pearl Maker (kgs), 3 trials: 42, 38, 38 (avg is 39 kgs) PT-OP-Q Treatments Start: 05/23/21 10:01 Freq: Status: Active Protocol: Document 07/11/21 13:03 LRN (Rec: 07/11/21 13:48 LRN [id number]) Therapeutic Exercises Sitting Exercises Shoulder Ext Sitting Exercise Name Shoulder ext w/ashleigh contraction of R wrist in neutral Side right Equipment Used 6# Reps/Minutes 15s Elbow flex Sitting Exercise Name Elbow flex (palm down) w/ashleigh contraction of R wrist in neutral Side right Equipment Used 4# Reps/Minutes 15x Elbow Curl Sitting Exercise Name Elbow Curl (palm forward, palm inward) w/ashleigh contraction of R wrist in ne Side right Equipment Used 6# Reps/Minutes 15x Wrist Ext strengthening Sitting Exercise Name Ext strengthening Side right Equipment Used Lev 1 TB Reps/Minutes 15x Comments Minimal click with ext Wrist Flex strengthening Sitting Exercise Name Flex strengthening Side right Equipment Used Lev 2 Reps/Minutes 15x Wrist Ext stretch Sitting Exercise Name Self Assisted stretch Side right Reps/Minutes 10' Comments AROM taken Wrist UD/RD Sitting Exercise Name R wrist UD/RD strengtheniing Side right Equipment Used Lev 2 TB Reps/Minutes 15x each Comments Minimal click with UD, no click with RD PT-OP-R Modalities Start: 06/03/21 08:56 Freq: Status: Active Protocol: Document 07/11/21 13:03 LRN (Rec: 07/11/21 13:48 [facility] [id number]) Ultrasound Therapy Treatment R dorsal distal wrist Treatment Duration (minutes) 8 Patient Position Sitting Coupling Medium Ultrasound Gel Applicator Size (cm2) 2 Frequency Setting (mHz) 3 Mode Setting Pulsed Duty Cycle 50% Intensity Setting (w/cm2) 1.0 PT-OP-T Assessment and Plan Start: 05/23/21 10:01 Freq: Status: Active Protocol: Document 07/11/21 13:03 LRN (Rec: 07/11/21 13:48 [facility] [id number]) Physical Therapy Assessment Goals 4 Impairment Lacks self care HEP Penitentiary Goal (LTG) Pt will perform progressive HEP with I including posture, range, and strength exercises to improve functional use of right hand by 07/25/21. (06/07/21: Progressed onto HEP of ROM exs) (06/10/21: Scap depr/retract for posture) (06/30/21: I/S pt in R wrist strengthening flex/ext/UD/RD with Lev 1 TB). LTG Duration 09/05/21 (06/30/21: Progressed) 3 Impairment Decreased R ore digger strength Impairment Norm values: males age 45-49, avg ore digger strength is 49.7 R, 45.7 L. Contract Accountant Goal (LTG) Pt will present with dominant right ore digger strength at least equal to the left to prepare for work tasks by 07/25/21. (07/07/21: Avg Pearl Maker strength ( kgs): 40 R, 39 L, pt is R hand dominant). LTG Duration 09/05/21 (07/07/21: Strength of R hand improving) 2 Impairment Decreased R wrist AROM Contract Accountant Goal (LTG) Pt will present with active right wrist ROM equal to the left with pt able to return to gym workout without R wrist pain by 07/25/21. (06/07/20: Improving, see assessment) (07/07/21: Pt has a little R wrist pain pushing self off from bed in morning when he used to not be able to. Able to toilet without R wrist pain ; no longer wears R wrist brace driving or with any ADLs ). LTG Duration 09/05/21 (07/07/21: Improved function, ROM remains limited ) 1 Impairment Decreased function of R wrist Contract Accountant Goal (LTG) Pt will present with QuickDASH score reflecting no more than 10% impairment to allow return to work by 09/05/21. (07/07/21: UE QuickDASH score is 25 = 20-39% impaired). LTG Duration 09/05/21 (07/07/21: Progressing) Assessment Summary Assessment R wrist clicking at finger ext tendons at wrist w/o pain; therefore possible soft tissue injury of extensor retinaculum. ROM improvements are very slow to progress. Pt may need further medical assessment for possible soft tissue injury of carpal bone ligaments. Decrease in swelling at dorsal R wrist after US and decrease discomfort. Pt appears to have increased laxity at the scaphoid lunate joint and pain at Trapezoid/Capitate and Capitate/Hamate jt dorsal surface and ulnar/radial jt at wrist. Physical Therapy Plan Frequency and Duration Frequency of Treatment 2x/Week Duration of Treatment 8 weeks Plan of Care Start Date 07/07/21 Plan of Care End Date 09/05/21 Next Visit Focus/Plan Next Note Type Treatment Note Next Visit Plan Start with R wrist AROM measurement, and again after stretching for wrist flexion. Assess strength if pt recovered from flare up. Assess: R wrist flex/sup. Assess HEP of R wrist TBand strengthening ex (issue HEP), progress strengthening as tolerated. Add HEP: Gripping with TPutty. K-tape for edema. Possible need of OT or hand specialist assessment. Check neck recovery from cyst & if needed-ROM, Issue HEP: neck RSB/L rot AROM .
--- NOTE | 2021-07-14 16:43 | PT.OTN ---
Current Diagnoses Unspecified injury at unspecified level of cervical spinal cord, initial encounter (07/14/21) Contusion of right shoulder, initial encounter (07/14/21) Unspecified sprain of right wrist, initial encounter (07/14/21) Physical Therapy Treatment Note PT-OP-A Visit Information Start: 05/23/21 10:01 Freq: Status: Active Protocol: Document 07/14/21 13:01 LRN (Rec: 07/14/21 13:48 LRN [id number]) Out-Patient Physical Therapy Visit Information Visit Information Visit Type Treatment Note Visit Start Time 13:01 Visit Stop Time 13:47 Total Visit Minutes 46 Visit Number 12 Evaluation Information Evaluation Date 05/27/21 Precautions Precautions Controlled HBP Pre-diabetic PT-OP-B Current Condition Start: 05/23/21 10:01 Freq: Status: Active Protocol: Document 05/27/21 12:19 MB (Rec: 05/27/21 12:47 MB [id number]) Current Condition History of Current Condition Onset Date 05/03/21 Current Complaints Right wrist with attempting to flex it History of Current Condition On 05/03/21, [place]. He tried to slow his fall with his right hand. He was too far from the rail. He jammed his wrist. He then hit his right shoulder and right leg. He also hit his head. His biggest current complaint is his right wrist. He also has popping and crunching at his neck and some discomfort at neck and right leg where he hit the steps. Pt has not worked since the injury. He doesn't sleep well in general. Now, when he rolls side to side, his neck does crunching and that bothers him . Pt rates pain as 1-2/10 right wrist. PMH includes high BP and obesity. Pt is right handed. Future Testing and Treatments Planned X-ray right wrist: NAD; x-ray right tib/fib: NAD; x-ray right knee: NAD; CT head and brain: NAD and small posterior left scalp hematoma or contusion; CT cervical spine: soft tissues normal, mild calcification at left cartoid bulb Treatment Goals Patient/Caregiver Goals To have right wrist be normal PT-OP-C Subjective Start: 05/23/21 10:01 Freq: Status: Active Protocol: Document 07/14/21 13:01 LRN (Rec: 07/14/21 13:48 LRN [id number]) OP-PT Subjective Patient Comments Patient Comments Thinks his R wrist has improved in mobility. States he is stretching more often. PT-OP-J Posture/Palpation/Skin Start: 05/23/21 10:01 Freq: Status: Active Protocol: Document 05/27/21 12:19 MB (Rec: 05/27/21 13:33 MB [id number]) Posture Evaluation Comments Posture Comments Standing posture: forward head , rounded shoulders, Dowager's hump, increased soft tissue abdomen and increased anterior tilt pelvis, decreased to no thoracic kyphosis, B knee flexion in standing with indention distal right tibia from fall, right iliac crest is higher than the left, increased Grecia angle right compared to the left and more lateral foot WB right compared to left. PT-OP-K Range of Motion Start: 05/23/21 10:01 Freq: Status: Active Protocol: Document 07/14/21 13:01 LRN (Rec: 07/14/21 13:48 LRN [id number]) Wrist Goniometric Range of Motion Wrist Right s/p treatment Wrist ROM WFL No Flexion Active (degrees) 60 Extension Active (degrees) 63 Left Wrist ROM WFL Yes Flexion Active (degrees) 75 Extension Active (degrees) 60 Ulnar Deviation Active (degrees) 30 Radial Deviation Active (degrees) 18 Right Wrist ROM WFL No Flexion Active (degrees) 65 Extension Active (degrees) 55 PT-OP-M Strength Start: 05/23/21 10:01 Freq: Status: Active Protocol: Document 07/07/21 13:03 LRN (Rec: 07/07/21 14:25 LRN [id number]) Hand Parts Processor/Pinch Strength Hand Dominance Hand Dominance Right Hand Strength Right Comments Parts Processor (kgs), 3 trials: 40, 40, 40 (avg is 40 kgs) Left Comments Parts Processor (kgs), 3 trials: 42, 38, 38 (avg is 39 kgs) PT-OP-Q Treatments Start: 05/23/21 10:01 Freq: Status: Active Protocol: Document 07/14/21 13:01 LRN (Rec: 07/14/21 13:48 LRN [id number]) Therapeutic Exercises Sitting Exercises Tricep Ext Sitting Exercise Name Elbow Ext Side right Equipment Used Lev 2 TB Reps/Minutes 15x Wrist AROM flex/ext Sitting Exercise Name Active wrist AROM/PROM at start and end of therapy Side left Reps/Minutes 5' Comments ROM msmts taken Elbow Curl Sitting Exercise Name Elbow Curl (palm forward, palm inward) w/gina contraction of R wrist in ne Side right Equipment Used Lev 2 RB Reps/Minutes 15x Gripping Sitting Exercise Name Gripping: wrist neutral, extended (2 positions), flex ( 2 positions) Side right Reps/Minutes 4' Wrist Ext strengthening Sitting Exercise Name Ext strengthening Side right Equipment Used Lev 1 TB Reps/Minutes 15x Comments Minimal click with ext Wrist Flex strengthening Sitting Exercise Name Flex strengthening Side right Equipment Used Lev 2 Reps/Minutes 15x Gina R wrist flex/ext Sitting Exercise Name Gina wrist flex in various ext positions (forearm neutral) Side right Reps/Minutes 5' Comments Done with self resist and with hand on wall for wrist ext Wrist Ext stretch Sitting Exercise Name Self Assisted stretch flex/ext Side right Reps/Minutes 5' Comments AROM taken Wrist UD/RD Sitting Exercise Name R wrist UD/RD strengtheniing Side right Equipment Used Lev 2 TB Reps/Minutes 15x each Comments Minimal click with UD, no click with RD Wrist flexion stretch Sitting Exercise Name Passive assisted stretch, f/b AA stretch Side right Reps/Minutes 5' Comments AROM taken. MH used with stretch Manual Therapy Treatment Joint Mobilizations R ulna Joint Inferior glide with wrist flex /ext stretch Body Position Sitting Comments Rx During wrist ex's R radius Joint Inferior glide with wrist flex /ext stretch Body Position Sitting Comments Rx During wrist ex's Self-Care/Home Management Treatment Education Patient Education Home Exercise Program Activities Self-Care/Home Management Activities Issued Salazar Firm TPutty for gripping ex. Issued & reviewed HEP: Wrist strengthening flex/ext, UD, RD , elbow ext. PT-OP-R Modalities Start: 06/03/21 08:56 Freq: Status: Active Protocol: Document 07/11/21 13:03 LRN (Rec: 07/11/21 13:48 LRN [id number]) Ultrasound Therapy Treatment R dorsal distal wrist Treatment Duration (minutes) 8 Patient Position Sitting Coupling Medium Ultrasound Gel Applicator Size (cm2) 2 Frequency Setting (mHz) 3 Mode Setting Pulsed Duty Cycle 50% Intensity Setting (w/cm2) 1.0 PT-OP-T Assessment and Plan Start: 05/23/21 10:01 Freq: Status: Active Protocol: Document 07/14/21 13:01 LRN (Rec: 07/14/21 13:48 LRN [id number]) Physical Therapy Assessment Goals 4 Impairment Lacks self care HEP Modeling Agent Goal (LTG) Pt will perform progressive HEP with I including posture, range, and strength exercises to improve functional use of right hand by 07/25/21. (06/07/21: Progressed onto HEP of ROM exs) (06/10/21: Scap depr/retract for posture) (06/30/21: I/S pt in R wrist strengthening flex/ext/UD/RD with Lev 1 TB). LTG Duration 09/05/21 (06/30/21: Progressed) 3 Impairment Decreased R public relations professional strength Impairment Norm values: males age 45-49, avg public relations professional strength is 49.7 R, 45.7 L. Modeling Agent Goal (LTG) Pt will present with dominant right public relations professional strength at least equal to the left to prepare for work tasks by 07/25/21. (07/07/21: Avg Parts Processor strength ( kgs): 40 R, 39 L, pt is R hand dominant). LTG Duration 09/05/21 (07/07/21: Strength of R hand improving) 2 Impairment Decreased R wrist AROM Modeling Agent Goal (LTG) Pt will present with active right wrist ROM equal to the left with pt able to return to gym workout without R wrist pain by 07/25/21. (06/07/20: Improving, see assessment) (07/07/21: Pt has a little R wrist pain pushing self off from bed in morning when he used to not be able to. Able to toilet without R wrist pain ; no longer wears R wrist brace driving or with any ADLs ). LTG Duration 09/05/21 (07/07/21: Improved function, ROM remains limited ) 1 Impairment Decreased function of R wrist Long-Term Goal (LTG) Pt will present with QuickDASH score reflecting no more than 10% impairment to allow return to work by 09/05/21. (07/07/21: UE QuickDASH score is 25 = 20-39% impaired). LTG Duration 09/05/21 (07/07/21: Progressing) Progress Towards Goals Progress Comments Progressed HEP. Assessment Summary Assessment Dorsal R wrist Pain with Gina flex/ext @ end ranges. Actively he is able to to strengthen the R wrist with Lev 2 T-Band with pain only on flex. WBing with R hand on wall causes discomfort ~60 deg 's and greater wrist ext. No pain with R wrist in neutral during weightbearing. Pt appears to have less pain due to increased R wrist mobility. No popping at the wrist noted with strengthening. Superior to inferior glide of radius & ulna with wrist flex ext appears to mildly help decrease pain with stretching and active flex/ext ROM. Physical Therapy Plan Frequency and Duration Frequency of Treatment 2x/Week Duration of Treatment 8 weeks Plan of Care Start Date 07/07/21 Plan of Care End Date 09/05/21 Next Visit Focus/Plan Next Note Type Treatment Note Next Visit Plan Start with R wrist AROM measurement, and again after stretching for wrist flexion. Assess strength if pt recovered from flare up. Assess: R wrist flex/sup ROM/ stength. Rrogress R wrist strengthening as tolerated. Add HEP: sup /pron and shoulder strengthening and neck RSB/L rot AROM. K-tape for edema if needed. Possible need of OT or hand specialist assessment. Check neck recovery from cyst & if needed-ROM,
--- NOTE | 2021-07-19 10:30 | PT.OTN ---
Current Diagnoses Unspecified injury at unspecified level of cervical spinal cord, initial encounter (07/19/21) Contusion of right shoulder, initial encounter (07/19/21) Unspecified sprain of right wrist, initial encounter (07/19/21) Physical Therapy Treatment Note PT-OP-A Visit Information Start: 05/23/21 10:01 Freq: Status: Active Protocol: Document 07/19/21 09:50 SP (Rec: 07/19/21 10:35 SP [id number]) Out-Patient Physical Therapy Visit Information Visit Information Visit Type Treatment Note Visit Start Time 09:50 Visit Stop Time 10:30 Total Visit Minutes 40 Visit Number 13 Number of STRUCTURAL STEEL SHOP SUPERVISOR Visits 1 Evaluation Information Evaluation Date 05/27/21 Precautions Precautions Controlled HBP Pre-diabetic PT-OP-B Current Condition Start: 05/23/21 10:01 Freq: Status: Active Protocol: Document 05/27/21 12:19 MB (Rec: 05/27/21 12:47 MB [id number]) Current Condition History of Current Condition Onset Date 05/03/21 Current Complaints Right wrist with attempting to flex it History of Current Condition On 05/03/21, [place]. He tried to slow his fall with his right hand. He was too far from the rail. He jammed his wrist. He then hit his right shoulder and right leg. He also hit his head. His biggest current complaint is his right wrist. He also has popping and crunching at his neck and some discomfort at neck and right leg where he hit the steps. Pt has not worked since the injury. He doesn't sleep well in general. Now, when he rolls side to side, his neck does crunching and that bothers him . Pt rates pain as 1-2/10 right wrist. PMH includes high BP and obesity. Pt is right handed. Future Testing and Treatments Planned X-ray right wrist: NAD; x-ray right tib/fib: NAD; x-ray right knee: NAD; CT head and brain: NAD and small posterior left scalp hematoma or contusion; CT cervical spine: soft tissues normal, mild calcification at left cartoid bulb Treatment Goals Patient/Caregiver Goals To have right wrist be normal PT-OP-C Subjective Start: 05/23/21 10:01 Freq: Status: Active Protocol: Document 07/19/21 09:50 SP (Rec: 07/19/21 10:35 SP [id number]) OP-PT Subjective Patient Comments Patient Comments Thinks his R wrist is almost at same range as L. He reports no clicking in past 2 weeks. Patient Reported Progress Improving PT-OP-J Posture/Palpation/Skin Start: 05/23/21 10:01 Freq: Status: Active Protocol: Document 05/27/21 12:19 MB (Rec: 05/27/21 13:33 MB [id number]) Posture Evaluation Comments Posture Comments Standing posture: forward head , rounded shoulders, Dowager's hump, increased soft tissue abdomen and increased anterior tilt pelvis, decreased to no thoracic kyphosis, B knee flexion in standing with indention distal right tibia from fall, right iliac crest is higher than the left, increased Grecia angle right compared to the left and more lateral foot WB right compared to left. PT-OP-K Range of Motion Start: 05/23/21 10:01 Freq: Status: Active Protocol: Document 07/19/21 09:50 SP (Rec: 07/19/21 10:35 SP [id number]) Wrist Goniometric Range of Motion Wrist Right s/p treatment Wrist ROM WFL No Flexion Active (degrees) 72 Extension Active (degrees) 42 Ulnar Deviation Active (degrees) 45 Radial Deviation Active (degrees) 20 Left Wrist ROM WFL Yes Flexion Active (degrees) 75 Extension Active (degrees) 58 Ulnar Deviation Active (degrees) 45 Radial Deviation Active (degrees) 25 Right Wrist ROM WFL No Flexion Active (degrees) 70 Extension Active (degrees) 50 Ulnar Deviation Active (degrees) 40 Radial Deviation Active (degrees) 24 PT-OP-M Strength Start: 05/23/21 10:01 Freq: Status: Active Protocol: Document 07/07/21 13:03 LRN (Rec: 07/07/21 14:25 LRN [id number]) Hand Inspector Electromechanical/Pinch Strength Hand Dominance Hand Dominance Right Hand Strength Right Comments Inspector Electromechanical (kgs), 3 trials: 40, 40, 40 (avg is 40 kgs) Left Comments Inspector Electromechanical (kgs), 3 trials: 42, 38, 38 (avg is 39 kgs) PT-OP-Q Treatments Start: 05/23/21 10:01 Freq: Status: Active Protocol: Document 07/19/21 09:50 SP (Rec: 07/19/21 10:35 SP [id number]) Therapeutic Exercises Sitting Exercises Wrist AROM flex/ext Sitting Exercise Name Active wrist AROM/PROM at start and end of therapy Side left Reps/Minutes 5' Comments ROM msmts taken Shoulder Ext Sitting Exercise Name Shoulder ext w/ashleigh contraction of R wrist in neutral Side right Equipment Used 6# Reps/Minutes 15s Elbow Curl Sitting Exercise Name Elbow Curl (palm forward, palm inward) w/ashleigh contraction of R wrist in ne Side right Equipment Used Lev 2 RB Reps/Minutes 15x Gripping Sitting Exercise Name Gripping: wrist neutral then 4 directions Side right Equipment Used digi flex 9#- easy, then move AROM 4 directions Reps/Minutes 2 Comments painfree, no clicking Wrist Ext strengthening Sitting Exercise Name Ext strengthening Side right Equipment Used Lev 2 TB Reps/Minutes 15x Comments no clicking. Wrist Flex strengthening Sitting Exercise Name Flex strengthening Side right Equipment Used Lev 2 TB Reps/Minutes 15x Comments no clicking Scapular depression/retraction Sitting Exercise Name shld ext w/ scap retract/ depress awareness Side bilateral Resistance body solid top plate no peg Reps/Minutes x10 Comments cued slow con/ eccentric and TA neutral pelvis & CS- painfree Wrist Ext stretch Sitting Exercise Name Self Assisted stretch flex/ext Side right Reps/Minutes 5' Comments AROM taken Wrist UD/RD Sitting Exercise Name R wrist UD/RD strengtheniing Side right Equipment Used Lev 2 TB Reps/Minutes 15x each Comments no clicking Wrist flexion stretch Sitting Exercise Name Passive assisted stretch, f/b AA stretch Side right Reps/Minutes 5' Comments AROM taken. MH used with stretch Standing Exercises shoulder extension Standing Exercise Name added to HEP for gym Side right Equipment Used body solid top plate no peg Reps/Minutes x10 Comments cued TA, neutral pelvis Tricep ext Standing Exercise Name added to HEP for gym Side right Resistance TB#2>4> body solid top plate no peg Reps/Minutes x10 Comments good no pain, nice work PT-OP-R Modalities Start: 06/03/21 08:56 Freq: Status: Active Protocol: Document 07/11/21 13:03 LRN (Rec: 07/11/21 13:48 LRN [id number]) Ultrasound Therapy Treatment R dorsal distal wrist Treatment Duration (minutes) 8 Patient Position Sitting Coupling Medium Ultrasound Gel Applicator Size (cm2) 2 Frequency Setting (mHz) 3 Mode Setting Pulsed Duty Cycle 50% Intensity Setting (w/cm2) 1.0 PT-OP-T Assessment and Plan Start: 05/23/21 10:01 Freq: Status: Active Protocol: Document 07/19/21 09:50 SP (Rec: 07/19/21 10:35 SP [id number]) Physical Therapy Assessment Goals 4 Impairment Lacks self care HEP Jail Goal (LTG) Pt will perform progressive HEP with I including posture, range, and strength exercises to improve functional use of right hand by 07/25/21. (06/07/21: Progressed onto HEP of ROM exs) (06/10/21: Scap depr/retract for posture) (06/30/21: I/S pt in R wrist strengthening flex/ext/UD/RD with Lev 1 TB). LTG Duration 09/05/21 (06/30/21: Progressed) 3 Impairment Decreased R core composer machine tender strength Impairment Norm values: males age 45-49, avg core composer machine tender strength is 49.7 R, 45.7 L. Body Make Up Artist Goal (LTG) Pt will present with dominant right core composer machine tender strength at least equal to the left to prepare for work tasks by 07/25/21. (07/07/21: Avg Inspector Electromechanical strength ( kgs): 40 R, 39 L, pt is R hand dominant). LTG Duration 09/05/21 (07/07/21: Strength of R hand improving) 2 Impairment Decreased R wrist AROM Body Make Up Artist Goal (LTG) Pt will present with active right wrist ROM equal to the left with pt able to return to gym workout without R wrist pain by 07/25/21. (06/07/20: Improving, see assessment) (07/07/21: Pt has a little R wrist pain pushing self off from bed in morning when he used to not be able to. Able to toilet without R wrist pain ; no longer wears R wrist brace driving or with any ADLs ). LTG Duration 09/05/21 (07/07/21: Improved function, ROM remains limited ) 1 Impairment Decreased function of R wrist Jail Goal (LTG) Pt will present with QuickDASH score reflecting no more than 10% impairment to allow return to work by 09/05/21. (07/07/21: UE QuickDASH score is 25 = 20-39% impaired). LTG Duration 09/05/21 (07/07/21: Progressing) Assessment Summary Assessment Pt only [address]/UD w/ Digiflex core composer machine tender. Painfree rest of ther ex and stretching this tx. Increased 2 deg wrist flexion end of tx. Pt able to progress tricep and shld ext strengthening in standing using body solid no plate. Pt reported will get a core composer machine tender device for home, looking at old school device due to digiflex to easiest at strongest in clinic with and without wrist ROM added. Physical Therapy Plan Frequency and Duration Frequency of Treatment 2x/Week Duration of Treatment 8 weeks Plan of Care Start Date 07/07/21 Plan of Care End Date 09/05/21 Therapeutic Interventions Therapeutic Interventions Home Exercise Program,Joint Mobilizations,Manual Therapy, Neuromuscular Re-education, Patient/Caregiver Education, Self-Care/Home Management,Soft Tissue Mobilization,Taping, Therapeutic Activities, Therapeutic Exercises Modalities Cold Pack/Ice Massage,Electric Stimulation,Hot Packs, Ultrasound Next Visit Focus/Plan Next Note Type Treatment Note Next Visit Plan Recheck bodysolid tricep ext and shld ext added last tx. POC: Start with R wrist AROM measurement, and again after stretching for wrist flexion. Assess strength if pt recovered from flare up. Assess: R wrist flex/sup ROM/ stength. Rrogress R wrist strengthening as tolerated. Add HEP: sup /pron and shoulder strengthening and neck RSB/L rot AROM. K-tape for edema if needed. Possible need of OT or hand specialist assessment. Check neck recovery from cyst & if needed-ROM,
--- NOTE | 2021-07-22 14:30 | PT.OTN ---
Current Diagnoses Unspecified injury at unspecified level of cervical spinal cord, initial encounter (07/22/21) Contusion of right shoulder, initial encounter (07/22/21) Unspecified sprain of right wrist, initial encounter (07/22/21) Physical Therapy Treatment Note PT-OP-A Visit Information Start: 05/23/21 10:01 Freq: Status: Active Protocol: Document 07/22/21 13:50 SP (Rec: 07/22/21 14:32 SP [id number]) Out-Patient Physical Therapy Visit Information Visit Information Visit Type Treatment Note Visit Start Time 13:50 Visit Stop Time 14:30 Total Visit Minutes 40 Visit Number 14 Number of BEAD INSPECTOR Visits 2 Evaluation Information Evaluation Date 05/27/21 Precautions Precautions Controlled HBP Pre-diabetic PT-OP-B Current Condition Start: 05/23/21 10:01 Freq: Status: Active Protocol: Document 05/27/21 12:19 MB (Rec: 05/27/21 12:47 MB [id number]) Current Condition History of Current Condition Onset Date 05/03/21 Current Complaints Right wrist with attempting to flex it History of Current Condition On 05/03/21, [place]. He tried to slow his fall with his right hand. He was too far from the rail. He jammed his wrist. He then hit his right shoulder and right leg. He also hit his head. His biggest current complaint is his right wrist. He also has popping and crunching at his neck and some discomfort at neck and right leg where he hit the steps. Pt has not worked since the injury. He doesn't sleep well in general. Now, when he rolls side to side, his neck does crunching and that bothers him . Pt rates pain as 1-2/10 right wrist. PMH includes high BP and obesity. Pt is right handed. Future Testing and Treatments Planned X-ray right wrist: NAD; x-ray right tib/fib: NAD; x-ray right knee: NAD; CT head and brain: NAD and small posterior left scalp hematoma or contusion; CT cervical spine: soft tissues normal, mild calcification at left cartoid bulb Treatment Goals Patient/Caregiver Goals To have right wrist be normal PT-OP-C Subjective Start: 05/23/21 10:01 Freq: Status: Active Protocol: Document 07/22/21 13:50 SP (Rec: 07/22/21 14:32 SP [id number]) OP-PT Subjective Patient Comments Patient Comments Pt reported little sore after gym yesterday and did pull downs about 50# then went to pool and swam: breast stroke laps. Patient Reported Progress Improving PT-OP-J Posture/Palpation/Skin Start: 05/23/21 10:01 Freq: Status: Active Protocol: Document 05/27/21 12:19 MB (Rec: 05/27/21 13:33 MB [id number]) Posture Evaluation Comments Posture Comments Standing posture: forward head , rounded shoulders, Dowager's hump, increased soft tissue abdomen and increased anterior tilt pelvis, decreased to no thoracic kyphosis, B knee flexion in standing with indention distal right tibia from fall, right iliac crest is higher than the left, increased Grecia angle right compared to the left and more lateral foot WB right compared to left. PT-OP-K Range of Motion Start: 05/23/21 10:01 Freq: Status: Active Protocol: Document 07/22/21 13:50 SP (Rec: 07/22/21 14:32 SP [id number]) Wrist Goniometric Range of Motion Wrist Right s/p treatment Wrist ROM WFL No Flexion Active (degrees) 73 Extension Active (degrees) 48 Ulnar Deviation Active (degrees) 53 Radial Deviation Active (degrees) 22 Left Wrist ROM WFL Yes Flexion Active (degrees) 82 Extension Active (degrees) 65 Ulnar Deviation Active (degrees) 55 Radial Deviation Active (degrees) 20 Right Wrist ROM WFL No Flexion Active (degrees) 72 Extension Active (degrees) 54 Ulnar Deviation Active (degrees) 50 Radial Deviation Active (degrees) 20 PT-OP-M Strength Start: 05/23/21 10:01 Freq: Status: Active Protocol: Document 07/07/21 13:03 LRN (Rec: 07/07/21 14:25 LRN [id number]) Hand Teller Vault/Pinch Strength Hand Dominance Hand Dominance Right Hand Strength Right Comments Teller Vault (kgs), 3 trials: 40, 40, 40 (avg is 40 kgs) Left Comments Teller Vault (kgs), 3 trials: 42, 38, 38 (avg is 39 kgs) PT-OP-Q Treatments Start: 05/23/21 10:01 Freq: Status: Active Protocol: Document 07/22/21 13:50 SP (Rec: 07/22/21 14:32 SP [id number]) Gym Equipment Cable Column (Body Solid) shoulder ext Details double UE Resistance 10# top plate, no peg Reps/Time 2x15- cued scap stab con/ecc tricep ext Details single Resistance 10# top plate, no peg Reps/Time 2x15 Therapeutic Exercises Sitting Exercises Tricep Ext Sitting Exercise Name Elbow Ext Side right Equipment Used cable - see gym equip Shoulder Ext Sitting Exercise Name Shoulder ext Side right Equipment Used gym cable Reps/Minutes see gym equip. Gripping Sitting Exercise Name Gripping: wrist neutral thumb toward ceiling Side bilateral Equipment Used dynameter Reps/Minutes R: 70#, 100#, 98#; L: 94#, 84# , 82# Comments painfree, no clicking Wrist Ext strengthening Sitting Exercise Name Ext strengthening Side right Equipment Used Lev 3 TB Reps/Minutes 15x Comments little clicking. Wrist Flex strengthening Sitting Exercise Name Flex strengthening Side right Equipment Used Lev 3 TB Reps/Minutes 15x Comments no clicking Wrist Sup/pron Sitting Exercise Name Assisted sup stretch f/b active stretch Side right Resistance TB #3 Reps/Minutes 3' x 2 of stretch f/b active stretch Wrist UD/RD Sitting Exercise Name R wrist UD/RD strengtheniing Side right Equipment Used Lev 3 TB Reps/Minutes 15x each Comments no clicking PT-OP-R Modalities Start: 06/03/21 08:56 Freq: Status: Active Protocol: Document 07/11/21 13:03 LRN (Rec: 07/11/21 13:48 LRN [id number]) Ultrasound Therapy Treatment R dorsal distal wrist Treatment Duration (minutes) 8 Patient Position Sitting Coupling Medium Ultrasound Gel Applicator Size (cm2) 2 Frequency Setting (mHz) 3 Mode Setting Pulsed Duty Cycle 50% Intensity Setting (w/cm2) 1.0 PT-OP-T Assessment and Plan Start: 05/23/21 10:01 Freq: Status: Active Protocol: Document 07/22/21 13:50 SP (Rec: 07/22/21 14:32 SP [id number]) Physical Therapy Assessment Goals 4 Impairment Lacks self care HEP Public Relations Goal (LTG) Pt will perform progressive HEP with I including posture, range, and strength exercises to improve functional use of right hand by 07/25/21. (06/07/21: Progressed onto HEP of ROM exs) (06/10/21: Scap depr/retract for posture) (06/30/21: I/S pt in R wrist strengthening flex/ext/UD/RD with Lev 1 TB). 07/19/21: increased #[address] wrist, added Tricep ext and shld ext) 07/22/21: progressing: increase TB resistance 6 way wrist #3 TB. 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 Public Relations Goal (LTG) Pt will present with dominant right residential remodeling subcontractor strength at least equal to the left to prepare for work tasks by 07/25/21. (07/07/21: Avg Teller Vault strength ( kgs): 40 R, 39 L, pt is R hand dominant). 07/22/21: Met GOAL: RUE: 32#, 46#, 42#; LUE: 41#, 41.5#, 38# . LTG Duration 09/05/21 (07/22/21: GOAL MET) 2 Impairment Decreased R wrist AROM Public Relations Goal (LTG) Pt will present with active right wrist ROM equal to the left with pt able to return to gym workout without R wrist pain by 07/25/21. (06/07/20: Improving, see assessment) (07/07/21: Pt has a little R wrist pain pushing self off from bed in morning when he used to not be able to. Able to toilet without R wrist pain ; no longer wears R wrist brace driving or with any ADLs ). 07/22/21: improving but not equal, see AROM measurements. LTG Duration 09/05/21 (07/22/21: Improved function, ROM remains limited ) 1 Impairment Decreased function of R wrist [facility] Goal (LTG) Pt will present with QuickDASH score reflecting no more than 10% impairment to allow return to work by 09/05/21. (07/07/21: UE QuickDASH score is 25 = 20-39% impaired). LTG Duration 09/05/21 (07/07/21: Progressing) Progress Towards Goals Progress Towards Goals Progressing Toward Goals Progress Comments STG #3 MET residential remodeling subcontractor strength RUE stronger than LUE. STG #2 improving ROM, see measurements, still limited wrist flexion, extesion. Assessment Summary Assessment Pt making gains in wrist AROM and no pain, little carpal clicking during increased resistance wrist extension but states not painful. Cued body closer and no UT recruitment during scapular strengthening cable ex today, painfee reports. Physical Therapy Plan Frequency and Duration Frequency of Treatment 2x/Week Duration of Treatment 8 weeks Plan of Care Start Date 07/07/21 Plan of Care End Date 09/05/21 Therapeutic Interventions Therapeutic Interventions Home Exercise Program,Joint Mobilizations,Manual Therapy, Neuromuscular Re-education, Patient/Caregiver Education, Self-Care/Home Management,Soft Tissue Mobilization,Taping, Therapeutic Activities, Therapeutic Exercises Modalities Cold Pack/Ice Massage,Electric Stimulation,Hot Packs, Ultrasound Next Visit Focus/Plan Next Note Type Treatment Note Next Visit Plan Recheck bodysolid tricep ext and shld ext. Next tx: progress wrist and shoulder strengthening TB vs cable. Assess WB activities to help return to gym progression. POC: Start with R wrist AROM measurement, and again after stretching for wrist flexion. POC: Assess: R wrist flex/sup ROM/stength. Progress R wrist strengthening as tolerated. Add HEP: neck RSB/L rot AROM. K-tape for edema if needed. Possible need of OT or hand specialist assessment. Check neck recovery from cyst & if needed-ROM,
--- NOTE | 2021-07-26 16:30 | PT.OTN ---
Current Diagnoses Unspecified injury at unspecified level of cervical spinal cord, initial encounter (07/28/21) Contusion of right shoulder, initial encounter (07/28/21) Unspecified sprain of right wrist, initial encounter (07/28/21) Physical Therapy Treatment Note PT-OP-A Visit Information Start: 05/23/21 10:01 Freq: Status: Active Protocol: Document 07/26/21 13:46 LRN (Rec: 07/26/21 14:34 LRN [id number]) Out-Patient Physical Therapy Visit Information Visit Information Visit Type Treatment Note Visit Start Time 13:46 Visit Stop Time 14:32 Total Visit Minutes 46 Visit Number 15 Evaluation Information Evaluation Date 05/27/21 Precautions Precautions Controlled HBP Pre-diabetic PT-OP-B Current Condition Start: 05/23/21 10:01 Freq: Status: Active Protocol: Document 05/27/21 12:19 MB (Rec: 05/27/21 12:47 MB [id number]) Current Condition History of Current Condition Onset Date 05/03/21 Current Complaints Right wrist with attempting to flex it History of Current Condition On 05/03/21, [place]. He tried to slow his fall with his right hand. He was too far from the rail. He jammed his wrist. He then hit his right shoulder and right leg. He also hit his head. His biggest current complaint is his right wrist. He also has popping and crunching at his neck and some discomfort at neck and right leg where he hit the steps. Pt has not worked since the injury. He doesn't sleep well in general. Now, when he rolls side to side, his neck does crunching and that bothers him . Pt rates pain as 1-2/10 right wrist. PMH includes high BP and obesity. Pt is right handed. Future Testing and Treatments Planned X-ray right wrist: NAD; x-ray right tib/fib: NAD; x-ray right knee: NAD; CT head and brain: NAD and small posterior left scalp hematoma or contusion; CT cervical spine: soft tissues normal, mild calcification at left cartoid bulb Treatment Goals Patient/Caregiver Goals To have right wrist be normal PT-OP-C Subjective Start: 05/23/21 10:01 Freq: Status: Active Protocol: Document 07/26/21 13:46 LRN (Rec: 07/26/21 14:34 LRN [id number]) OP-PT Subjective Patient Comments Patient Comments Went to the pool 2 days ago and felt it was good for the wrist. Has been more sore since starting the pool. PT-OP-J Posture/Palpation/Skin Start: 05/23/21 10:01 Freq: Status: Active Protocol: Document 05/27/21 12:19 MB (Rec: 05/27/21 13:33 MB [id number]) Posture Evaluation Comments Posture Comments Standing posture: forward head , rounded shoulders, Dowager's hump, increased soft tissue abdomen and increased anterior tilt pelvis, decreased to no thoracic kyphosis, B knee flexion in standing with indention distal right tibia from fall, right iliac crest is higher than the left, increased Grecia angle right compared to the left and more lateral foot WB right compared to left. PT-OP-K Range of Motion Start: 05/23/21 10:01 Freq: Status: Active Protocol: Document 07/26/21 13:46 LRN (Rec: 07/26/21 14:34 LRN [id number]) Wrist Goniometric Range of Motion Wrist Left Flexion Active (degrees) 65 Extension Active (degrees) 60 Ulnar Deviation Active (degrees) 33 Radial Deviation Active (degrees) 20 Right Wrist ROM WFL No Flexion Active (degrees) 64 Extension Active (degrees) 56 Ulnar Deviation Active (degrees) 40 Radial Deviation Active (degrees) 22 PT-OP-M Strength Start: 05/23/21 10:01 Freq: Status: Active Protocol: Document 07/07/21 13:03 LRN (Rec: 07/07/21 14:25 LRN [id number]) Hand Demo Coordinator/Pinch Strength Hand Dominance Hand Dominance Right Hand Strength Right Comments Demo Coordinator (kgs), 3 trials: 40, 40, 40 (avg is 40 kgs) Left Comments Demo Coordinator (kgs), 3 trials: 42, 38, 38 (avg is 39 kgs) PT-OP-Q Treatments Start: 05/23/21 10:01 Freq: Status: Active Protocol: Document 07/26/21 13:46 LRN (Rec: 07/26/21 14:34 LRN [id number]) Gym Equipment Cable Column (Body Solid) Chest press Details Chest Press Resistance 10# Reps/Time 15x , much v cuing to engage core Row Details Row Resistance 10# Reps/Time 15x Therapeutic Exercises Sitting Exercises Shoulder IR Sitting Exercise Name Shoulder IR Side right Equipment Used Lev2 TBand Reps/Minutes 15x Shoulder ER Sitting Exercise Name Shoulder ER Side bilateral Equipment Used Lev2 TBand Reps/Minutes 15x Standing Exercises Chest press Standing Exercise Name Chest press with extra shove Side bilateral Equipment Used Lev 2 TBand Reps/Minutes 20x Row Standing Exercise Name Row Side bilateral Equipment Used Lev 2 TBand Reps/Minutes 20x Scapular retraction Standing Exercise Name Scapular retraction Side bilateral Reps/Minutes 15x 2 shoulder extension Standing Exercise Name added to HEP for gym Side right Equipment Used 10# (body solid top plate no peg) Reps/Minutes 15x each position Comments No wrist pain, cued TA, neutral pelvis Tricep ext Standing Exercise Name Tricep ext with hands neutral & pronated Side right Equipment Used 10# (body solid top plate no peg) Reps/Minutes 15x each position Comments No wrist pain, cued for TA, neutral pelvis Self-Care/Home Management Treatment Education Patient Education Home Exercise Program Activities Self-Care/Home Management Activities Issued & reviewed HEP: shoulder ER/IR, ext, row & chest press strengthening. PT-OP-R Modalities Start: 06/03/21 08:56 Freq: Status: Active Protocol: Document 07/11/21 13:03 LRN (Rec: 07/11/21 13:48 LRN [id number]) Ultrasound Therapy Treatment R dorsal distal wrist Treatment Duration (minutes) 8 Patient Position Sitting Coupling Medium Ultrasound Gel Applicator Size (cm2) 2 Frequency Setting (mHz) 3 Mode Setting Pulsed Duty Cycle 50% Intensity Setting (w/cm2) 1.0 PT-OP-T Assessment and Plan Start: 05/23/21 10:01 Freq: Status: Active Protocol: Document 07/26/21 13:46 LRN (Rec: 07/26/21 14:34 LRN [id number]) Physical Therapy Assessment Goals 4 Impairment Lacks self care HEP Jail Goal (LTG) Pt will perform progressive HEP with I including posture, range, and strength exercises to improve functional use of right hand by 07/25/21. (06/07/21: Progressed onto HEP of ROM exs) (06/10/21: Scap depr/retract for posture) (06/30/21: I/S pt in R wrist strengthening flex/ext/UD/RD with Lev 1 TB). 07/19/21: increased #[address] wrist, added Tricep ext and shld ext) 07/22/21: progressing: increase TB resistance 6 way wrist #3 TB. LTG Duration 09/05/21 (07/22/21: Progressed) 3 Impairment Decreased R rug clipper strength Impairment Norm values: males age 45-49, avg rug clipper strength is 49.7 R, 45.7 L. Geography Instructor Goal (LTG) Pt will present with dominant right rug clipper strength at least equal to the left to prepare for work tasks by 07/25/21. (07/07/21: Avg Demo Coordinator strength ( kgs): 40 R, 39 L, pt is R hand dominant). 07/22/21: Met GOAL: RUE: 32#, 46#, 42#; LUE: 41#, 41.5#, 38# . LTG Duration 09/05/21 (07/22/21: GOAL MET) 2 Impairment Decreased R wrist AROM Jail Goal (LTG) Pt will present with active right wrist ROM equal to the left with pt able to return to gym workout without R wrist pain by 07/25/21. (06/07/20: Improving, see assessment) (07/07/21: Pt has a little R wrist pain pushing self off from bed in morning when he used to not be able to. Able to toilet without R wrist pain ; no longer wears R wrist brace driving or with any ADLs ). 07/22/21: improving but not equal, see AROM measurements. LTG Duration 09/05/21 (07/22/21: Improved function, ROM remains limited ) 1 Impairment Decreased function of R wrist Geography Instructor Goal (LTG) Pt will present with QuickDASH score reflecting no more than 10% impairment to allow return to work by 09/05/21. (07/07/21: UE QuickDASH score is 25 = 20-39% impaired). LTG Duration 09/05/21 (07/07/21: Progressing) Assessment Summary Assessment Pt had no problems with tricep ext & shldr ext with use of Dual Senait weight strengthening. Pt has been exercising in the pool and his R wrist mobility appears to have normalized somewhat with the L, although overall both wrists show a decrease in flex /ext mobility; possibly due to increased strength and stabilization at the wrists. Physical Therapy Plan Frequency and Duration Frequency of Treatment 2x/Week Duration of Treatment 8 weeks Plan of Care Start Date 07/07/21 Plan of Care End Date 09/05/21 Next Visit Focus/Plan Next Note Type Treatment Note Next Visit Plan Next tx: progress wrist and shoulder strengthening TB vs cable. Assess WB activities to help return to gym progression. POC: Start with R wrist AROM measurement, and again after stretching for wrist flexion. POC: Assess: R wrist flex/sup ROM/stength. Progress R wrist strengthening as tolerated. Add HEP: neck RSB/L rot AROM. K-tape for edema if needed. Check neck recovery from cyst & if needed-ROM.
--- NOTE | 2021-08-09 08:15 | PT.OTN ---
Current Diagnoses Unspecified injury at unspecified level of cervical spinal cord, initial encounter (08/09/21) Contusion of right shoulder, initial encounter (08/09/21) Unspecified sprain of right wrist, initial encounter (08/09/21) Physical Therapy Treatment Note PT-OP-A Visit Information Start: 05/23/21 10:01 Freq: Status: Active Protocol: Document 08/09/21 07:33 SP (Rec: 08/09/21 08:18 SP [id number]) Out-Patient Physical Therapy Visit Information Visit Information Visit Type Treatment Note Visit Start Time 07:33 Visit Stop Time 08:15 Total Visit Minutes 42 Visit Number 17 Number of CORONER FORENSIC TECHNICIAN Visits 1 Evaluation Information Evaluation Date 05/27/21 Precautions Precautions Controlled HBP Pre-diabetic PT-OP-B Current Condition Start: 05/23/21 10:01 Freq: Status: Active Protocol: Document 05/27/21 12:19 MB (Rec: 05/27/21 12:47 MB [id number]) Current Condition History of Current Condition Onset Date 05/03/21 Current Complaints Right wrist with attempting to flex it History of Current Condition On 05/03/21, [place]. He tried to slow his fall with his right hand. He was too far from the rail. He jammed his wrist. He then hit his right shoulder and right leg. He also hit his head. His biggest current complaint is his right wrist. He also has popping and crunching at his neck and some discomfort at neck and right leg where he hit the steps. Pt has not worked since the injury. He doesn't sleep well in general. Now, when he rolls side to side, his neck does crunching and that bothers him . Pt rates pain as 1-2/10 right wrist. PMH includes high BP and obesity. Pt is right handed. Future Testing and Treatments Planned X-ray right wrist: NAD; x-ray right tib/fib: NAD; x-ray right knee: NAD; CT head and brain: NAD and small posterior left scalp hematoma or contusion; CT cervical spine: soft tissues normal, mild calcification at left cartoid bulb Treatment Goals Patient/Caregiver Goals To have right wrist be normal PT-OP-C Subjective Start: 05/23/21 10:01 Freq: Status: Active Protocol: Document 08/09/21 07:33 SP (Rec: 08/09/21 08:18 SP [id number]) OP-PT Subjective Patient Comments Patient Comments Pt reported able to do HEP at gym and walking on treadmill as well. Still tightness end range palm face up but better. He states limited in shoulder over head motion due to discomfort catching feeling so tends to keep arms closer to sides. PT-OP-J Posture/Palpation/Skin Start: 05/23/21 10:01 Freq: Status: Active Protocol: Document 05/27/21 12:19 MB (Rec: 05/27/21 13:33 MB [id number]) Posture Evaluation Comments Posture Comments Standing posture: forward head , rounded shoulders, Dowager's hump, increased soft tissue abdomen and increased anterior tilt pelvis, decreased to no thoracic kyphosis, B knee flexion in standing with indention distal right tibia from fall, right iliac crest is higher than the left, increased Grecia angle right compared to the left and more lateral foot WB right compared to left. PT-OP-K Range of Motion Start: 05/23/21 10:01 Freq: Status: Active Protocol: Document 08/09/21 07:33 SP (Rec: 08/09/21 08:18 SP [id number]) Wrist Goniometric Range of Motion Wrist Left Wrist ROM WFL Yes Flexion Active (degrees) 70 Extension Active (degrees) 62 Ulnar Deviation Active (degrees) 48 Radial Deviation Active (degrees) 21 Right Wrist ROM WFL No Flexion Active (degrees) 68 Extension Active (degrees) 55 Ulnar Deviation Active (degrees) 52 Radial Deviation Active (degrees) 23 PT-OP-M Strength Start: 05/23/21 10:01 Freq: Status: Active Protocol: Document 07/07/21 13:03 LRN (Rec: 07/07/21 14:25 LRN [id number]) Hand Services Executive/Pinch Strength Hand Dominance Hand Dominance Right Hand Strength Right Comments Services Executive (kgs), 3 trials: 40, 40, 40 (avg is 40 kgs) Left Comments Services Executive (kgs), 3 trials: 42, 38, 38 (avg is 39 kgs) PT-OP-Q Treatments Start: 05/23/21 10:01 Freq: Status: Active Protocol: Document 08/09/21 07:33 SP (Rec: 08/09/21 08:18 SP [id number]) Cardio Equipment Upper Body Ergometer (UBE) Duration (Minutes) 8 RPM 70 Seat Position 15 Height 3.5 Other total cycles 399 Gym Equipment Cable Column (Body Solid) Lat Pull Down Resistance #40 Reps/Time x20 Row Resistance #50 Reps/Time x20 Therapeutic Exercises Sitting Exercises Elbow Curl Sitting Exercise Name Elbow Curl (palm up, palm down ) Side right Equipment Used 7# DB Reps/Minutes 15x Comments good form Wrist Ext strengthening Sitting Exercise Name Flexion and Ext strengthening Side right Equipment Used #5 DB Reps/Minutes 15x Comments good form, little click end range Wrist Flex strengthening Sitting Exercise Name Flex strengthening Side right Equipment Used #5 DB Reps/Minutes 15x Comments no clicking Wrist Sup/pron Sitting Exercise Name Assisted sup stretch f/b active stretch Side right Resistance #5 DB Reps/Minutes x15 Comments good form, little strain end range supination Standing Exercises Shldr IR/ER Standing Exercise Name Shoulder IR/ER Side right Resistance body solid cable #20 IR, #10 ER Reps/Minutes 15x 2 Comments cued elbow tucked at side, slow eccentric control PT-OP-R Modalities Start: 06/03/21 08:56 Freq: Status: Active Protocol: Document 07/11/21 13:03 LRN (Rec: 07/11/21 13:48 LRN [id number]) Ultrasound Therapy Treatment R dorsal distal wrist Treatment Duration (minutes) 8 Patient Position Sitting Coupling Medium Ultrasound Gel Applicator Size (cm2) 2 Frequency Setting (mHz) 3 Mode Setting Pulsed Duty Cycle 50% Intensity Setting (w/cm2) 1.0 PT-OP-T Assessment and Plan Start: 05/23/21 10:01 Freq: Status: Active Protocol: Document 08/09/21 07:33 SP (Rec: 08/09/21 08:18 SP [id number]) Physical Therapy Assessment Goals 4 Impairment Lacks self care HEP Half-Way Goal (LTG) Pt will perform progressive HEP with I including posture, range, and strength exercises to improve functional use of right hand by 07/25/21. (06/07/21: Progressed onto HEP of ROM exs) (06/10/21: Scap depr/retract for posture) (06/30/21: I/S pt in R wrist strengthening flex/ext/UD/RD with Lev 1 TB). 07/19/21: increased #[address] wrist, added Tricep ext and shld ext) 07/22/21: progressing: increase TB resistance 6 way wrist #3 TB. 08/09/21: Progressing: increased resistance bodysolid cable system shld IR/ER lat pull down, rows, shld ext, Increased DB resistance bicep curl and 4 way wrist ex #5 DB. LTG Duration 09/05/21 (08/09/21: Progressed) 3 Impairment Decreased R sales solutions associate strength Impairment Norm values: males age 45-49, avg sales solutions associate strength is 49.7 R, 45.7 L. Compressor Stations Superintendent Goal (LTG) Pt will present with dominant right sales solutions associate strength at least equal to the left to prepare for work tasks by 07/25/21. (07/07/21: Avg Services Executive strength ( kgs): 40 R, 39 L, pt is R hand dominant). 07/22/21: Met GOAL: RUE: 32#, 46#, 42#; LUE: 41#, 41.5#, 38# . LTG Duration 09/05/21 (07/22/21: GOAL MET) 2 Impairment Decreased R wrist AROM Half-Way Goal (LTG) Pt will present with active right wrist ROM equal to the left with pt able to return to gym workout without R wrist pain by 07/25/21. (06/07/20: Improving, see assessment) (07/07/21: Pt has a little R wrist pain pushing self off from bed in morning when he used to not be able to. Able to toilet without R wrist pain ; no longer wears R wrist brace driving or with any ADLs ). 07/22/21: improving but not equal, see AROM measurements. 08/05/21:improving: see measurements: LTG Duration 09/05/21 (08/09/21: Improved function, ROM remains limited ) 1 Impairment Decreased function of R wrist Half-Way Goal (LTG) Pt will present with QuickDASH score reflecting no more than 10% impairment to allow return to work by 09/05/21. (07/07/21: UE QuickDASH score is 25 = 20-39% impaired). LTG Duration 09/05/21 (07/07/21: Progressing) Progress Towards Goals Progress Towards Goals Progressing Toward Goals Progress Comments IMprovements in wrist ROM: R: 3 deg flexion, [address], 12 deg UD. L: 2 deg extension, [address], 21 deg UD. Assessment Summary Assessment Pt improved increase resistance # DB with wrist exercises and bicep curl, tolerated painfree cable resistance with Shld IR/ER/ rows/added lat pull down to add to gym HEP. Pt making gains in wrist ROM see measurements, reports strain end range supination still. Physical Therapy Plan Frequency and Duration Frequency of Treatment 2x/Week Duration of Treatment 8 weeks Plan of Care Start Date 07/07/21 Plan of Care End Date 09/05/21 Therapeutic Interventions Therapeutic Interventions Home Exercise Program,Joint Mobilizations,Manual Therapy, Neuromuscular Re-education, Patient/Caregiver Education, Self-Care/Home Management,Soft Tissue Mobilization,Taping, Therapeutic Activities, Therapeutic Exercises Modalities Cold Pack/Ice Massage,Electric Stimulation,Hot Packs, Ultrasound Next Visit Focus/Plan Next Note Type Treatment Note Next Visit Plan Quick Dash next tx. Start with R wrist AROM measurement, and again after stretching for wrist flexion. Check sales solutions associate strength if painfree. *Assess WB activities to help return to gym progression. Add HEP: neck RSB/L rot AROM. Assess: R wrist flex/sup ROM/ stength. Check neck recovery from cyst & if needed-ROM.
--- NOTE | 2021-08-15 13:00 | PT.OTN ---
Current Diagnoses Unspecified injury at unspecified level of cervical spinal cord, initial encounter (08/15/21) Contusion of right shoulder, initial encounter (08/15/21) Unspecified sprain of right wrist, initial encounter (08/15/21) Physical Therapy Treatment Note PT-OP-A Visit Information Start: 05/23/21 10:01 Freq: Status: Active Protocol: Document 08/15/21 12:18 SP (Rec: 08/15/21 13:05 SP [id number]) Out-Patient Physical Therapy Visit Information Visit Information Visit Type Treatment Note Visit Start Time 12:18 Visit Stop Time 13:00 Total Visit Minutes 42 Visit Number 18 Number of RANGE TECHNICIAN Visits 2 Evaluation Information Evaluation Date 05/27/21 Precautions Precautions Controlled HBP Pre-diabetic PT-OP-B Current Condition Start: 05/23/21 10:01 Freq: Status: Active Protocol: Document 05/27/21 12:19 MB (Rec: 05/27/21 12:47 MB [id number]) Current Condition History of Current Condition Onset Date 05/03/21 Current Complaints Right wrist with attempting to flex it History of Current Condition On 05/03/21, [place]. He tried to slow his fall with his right hand. He was too far from the rail. He jammed his wrist. He then hit his right shoulder and right leg. He also hit his head. His biggest current complaint is his right wrist. He also has popping and crunching at his neck and some discomfort at neck and right leg where he hit the steps. Pt has not worked since the injury. He doesn't sleep well in general. Now, when he rolls side to side, his neck does crunching and that bothers him . Pt rates pain as 1-2/10 right wrist. PMH includes high BP and obesity. Pt is right handed. Future Testing and Treatments Planned X-ray right wrist: NAD; x-ray right tib/fib: NAD; x-ray right knee: NAD; CT head and brain: NAD and small posterior left scalp hematoma or contusion; CT cervical spine: soft tissues normal, mild calcification at left cartoid bulb Treatment Goals Patient/Caregiver Goals To have right wrist be normal PT-OP-C Subjective Start: 05/23/21 10:01 Freq: Status: Active Protocol: Document 08/15/21 12:18 SP (Rec: 08/15/21 13:05 SP [id number]) OP-PT Subjective Patient Comments Patient Comments Pt reports still clicks with R wrist extension. Pt states uses heating pad and stretching and trying to be conscious of wrist pbut not finding gone away yet. Pt states shoot hoops with friend 1 mo ago and feeling better than then. Patient Questionnaires Quick Dash- Upper Extremity Quick Dash UE Score 13.64 Quick Dash UE Impairment 1 to 19% Impaired (Score 1-19) PT-OP-J Posture/Palpation/Skin Start: 05/23/21 10:01 Freq: Status: Active Protocol: Document 05/27/21 12:19 MB (Rec: 05/27/21 13:33 MB [id number]) Posture Evaluation Comments Posture Comments Standing posture: forward head , rounded shoulders, Dowager's hump, increased soft tissue abdomen and increased anterior tilt pelvis, decreased to no thoracic kyphosis, B knee flexion in standing with indention distal right tibia from fall, right iliac crest is higher than the left, increased Grecia angle right compared to the left and more lateral foot WB right compared to left. PT-OP-K Range of Motion Start: 05/23/21 10:01 Freq: Status: Active Protocol: Document 08/15/21 12:18 SP (Rec: 08/15/21 13:05 SP [id number]) Wrist Goniometric Range of Motion Wrist Right s/p treatment Wrist ROM WFL No Flexion Active (degrees) 70 Extension Active (degrees) 63 Ulnar Deviation Active (degrees) 43 Radial Deviation Active (degrees) 22 Left Wrist ROM WFL Yes Flexion Active (degrees) 72 Extension Active (degrees) 68 Ulnar Deviation Active (degrees) 48 Radial Deviation Active (degrees) 25 PT-OP-M Strength Start: 05/23/21 10:01 Freq: Status: Active Protocol: Document 07/07/21 13:03 LRN (Rec: 07/07/21 14:25 LRN [id number]) Hand Unix Systems Administrator/Pinch Strength Hand Dominance Hand Dominance Right Hand Strength Right Comments Unix Systems Administrator (kgs), 3 trials: 40, 40, 40 (avg is 40 kgs) Left Comments Unix Systems Administrator (kgs), 3 trials: 42, 38, 38 (avg is 39 kgs) PT-OP-Q Treatments Start: 05/23/21 10:01 Freq: Status: Active Protocol: Document 08/15/21 12:18 SP (Rec: 08/15/21 13:05 SP [id number]) Cardio Equipment Upper Body Ergometer (UBE) Duration (Minutes) 8 RPM 55 Seat Position 14, handles see 3 Height 3.5 Other total cycles Gym Equipment Cable Column (Body Solid) Lat Pull Down Resistance #40 Reps/Time x20 Chest press Details Chest Press Resistance 30# Reps/Time 15x2 , cued split stance engage core Row Resistance #40 Reps/Time 2x15 shoulder ext Details double UE Resistance 10# top plate, no peg Reps/Time 2x15- cued scap stab con/ecc tricep ext Details single Resistance 10# top plate, no peg Reps/Time 2x15 Shuttle Rebound throws trampoline Exercise Details throws Reps/Duration x15 each Comments green, red. Cued eccentric return absorption. Therapeutic Exercises Sitting Exercises Wrist Sup/pron Sitting Exercise Name Assisted sup stretch f/b active stretch Side right Resistance #5 DB Reps/Minutes x15, end range stretch hold 2 sec Comments good form and stretch Standing Exercises golf swing Standing Exercise Name assess wrist ROM and pain assessment Resistance AROM Equipment Used wedge club Reps/Minutes x2 Comments no pain in wrist. PT-OP-R Modalities Start: 06/03/21 08:56 Freq: Status: Active Protocol: Document 07/11/21 13:03 LRN (Rec: 07/11/21 13:48 LRN [id number]) Ultrasound Therapy Treatment R dorsal distal wrist Treatment Duration (minutes) 8 Patient Position Sitting Coupling Medium Ultrasound Gel Applicator Size (cm2) 2 Frequency Setting (mHz) 3 Mode Setting Pulsed Duty Cycle 50% Intensity Setting (w/cm2) 1.0 PT-OP-T Assessment and Plan Start: 05/23/21 10:01 Freq: Status: Active Protocol: Document 08/15/21 12:18 SP (Rec: 08/15/21 13:05 SP [id number]) Physical Therapy Assessment Goals 4 Impairment Lacks self care HEP Penitentiary Goal (LTG) Pt will perform progressive HEP with I including posture, range, and strength exercises to improve functional use of right hand by 07/25/21. (06/07/21: Progressed onto HEP of ROM exs) (06/10/21: Scap depr/retract for posture) (06/30/21: I/S pt in R wrist strengthening flex/ext/UD/RD with Lev 1 TB). 07/19/21: increased #[address] wrist, added Tricep ext and shld ext) 07/22/21: progressing: increase TB resistance 6 way wrist #3 TB. 08/09/21: Progressing: increased resistance bodysolid cable system shld IR/ER lat pull down, rows, shld ext, Increased DB resistance bicep curl and 4 way wrist ex #5 DB. 08/15/21: progressing: no pain chest press at gym added to gym HEP also does during PT. LTG Duration 09/05/21 (08/15/21: Progressed ) 3 Impairment Decreased R sluice tender strength Impairment Norm values: males age 45-49, avg sluice tender strength is 49.7 R, 45.7 L. Sales Representative Wire Rope Goal (LTG) Pt will present with dominant right sluice tender strength at least equal to the left to prepare for work tasks by 07/25/21. (07/07/21: Avg Unix Systems Administrator strength ( kgs): 40 R, 39 L, pt is R hand dominant). 07/22/21: Met GOAL: RUE: 32#, 46#, 42#; LUE: 41#, 41.5#, 38# . LTG Duration 09/05/21 (07/22/21: GOAL MET) 2 Impairment Decreased R wrist AROM [facility]iary Goal (LTG) Pt will present with active right wrist ROM equal to the left with pt able to return to gym workout without R wrist pain by 07/25/21. (06/07/20: Improving, see assessment) (07/07/21: Pt has a little R wrist pain pushing self off from bed in morning when he used to not be able to. Able to toilet without R wrist pain ; no longer wears R wrist brace driving or with any ADLs ). 07/22/21: improving but not equal, see AROM measurements. 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 Pt. Progressing AROM,see values. LTG Duration 09/05/21 (: Improved function, ROM remains limited) 1 Impairment Decreased function of R wrist Sales Representative Wire Rope Goal (LTG) Pt will present with QuickDASH score reflecting no more than 10% impairment to allow return to work by 09/05/21. (07/07/21: UE QuickDASH score is 25 = 20-39% impaired). 08/15/21: score= 1=-19% impairment. LTG Duration 09/05/21 (08/15/21: Progressing) Progress Towards Goals Progress Towards Goals Progressing Toward Goals Progress Comments Improvements in wrist ROM: R: flexion 6 deg, extension 7 deg, UD 10 deg, RD same. L: flex 7 deg, ext 8 deg, UD 8 deg, RD 3 deg Assessment Summary Assessment Pt continues to make gains in ROM. no pain with gym HEP, no pain just felt awkward assess throwing/ catch wt'd ball this tx. Pt feels is ready to progress on own program. He reports till not complete R wrist clicking into extension and not feel comfortable WB activities yet. Physical Therapy Plan Frequency and Duration Frequency of Treatment 2x/Week Duration of Treatment 8 weeks Plan of Care Start Date 07/07/21 Plan of Care End Date 09/05/21 Therapeutic Interventions Therapeutic Interventions Home Exercise Program,Joint Mobilizations,Manual Therapy, Neuromuscular Re-education, Patient/Caregiver Education, Self-Care/Home Management,Soft Tissue Mobilization,Taping, Therapeutic Activities, Therapeutic Exercises Modalities Cold Pack/Ice Massage,Electric Stimulation,Hot Packs, Ultrasound Next Visit Focus/Plan Next Note Type Discharge Summary Next Visit Plan Next appt potential DC, feels ready to progress on own. Start with R wrist AROM measurement, and again after stretching for wrist flexion. Check sluice tender strength if painfree. *Assess WB activities to help return to gym progression. Assess: R wrist flex/sup ROM/ stength.
--- NOTE | 2021-08-23 17:40 | PT.OTN ---
Current Diagnoses Unspecified injury at unspecified level of cervical spinal cord, initial encounter (08/23/21) Contusion of right shoulder, initial encounter (08/23/21) Unspecified sprain of right wrist, initial encounter (08/23/21) Physical Therapy Treatment Note PT-OP-A Visit Information Start: 05/23/21 10:01 Freq: Status: Active Protocol: Document 08/23/21 10:38 LRN (Rec: 08/23/21 11:21 LRN [id number]) Out-Patient Physical Therapy Visit Information Visit Information Visit Type Treatment Note Visit Start Time 10:38 Visit Stop Time 11:20 Total Visit Minutes 42 Visit Number 19 Evaluation Information Evaluation Date 05/27/21 Precautions Precautions Controlled HBP Pre-diabetic PT-OP-B Current Condition Start: 05/23/21 10:01 Freq: Status: Active Protocol: Document 05/27/21 12:19 MB (Rec: 05/27/21 12:47 MB [id number]) Current Condition History of Current Condition Onset Date 05/03/21 Current Complaints Right wrist with attempting to flex it History of Current Condition On 05/03/21, [place]. He tried to slow his fall with his right hand. He was too far from the rail. He jammed his wrist. He then hit his right shoulder and right leg. He also hit his head. His biggest current complaint is his right wrist. He also has popping and crunching at his neck and some discomfort at neck and right leg where he hit the steps. Pt has not worked since the injury. He doesn't sleep well in general. Now, when he rolls side to side, his neck does crunching and that bothers him . Pt rates pain as 1-2/10 right wrist. PMH includes high BP and obesity. Pt is right handed. Future Testing and Treatments Planned X-ray right wrist: NAD; x-ray right tib/fib: NAD; x-ray right knee: NAD; CT head and brain: NAD and small posterior left scalp hematoma or contusion; CT cervical spine: soft tissues normal, mild calcification at left cartoid bulb Treatment Goals Patient/Caregiver Goals To have right wrist be normal PT-OP-C Subjective Start: 05/23/21 10:01 Freq: Status: Active Protocol: Document 08/23/21 10:38 LRN (Rec: 08/23/21 11:21 LRN [id number]) OP-PT Subjective Patient Comments Patient Comments Feels he is ready to be done with therapy. He started to get clicking int he R wrist a couple weeks ago from bending and using it more, No pain with clicking and uncomfortable. No pain with weightbearing on arms. Patient Questionnaires Quick Dash- Upper Extremity Quick Dash UE Score 0 Quick Dash UE Impairment 0% Impaired (Score 0) PT-OP-J Posture/Palpation/Skin Start: 05/23/21 10:01 Freq: Status: Active Protocol: Document 05/27/21 12:19 MB (Rec: 05/27/21 13:33 MB [id number]) Posture Evaluation Comments Posture Comments Standing posture: forward head , rounded shoulders, Dowager's hump, increased soft tissue abdomen and increased anterior tilt pelvis, decreased to no thoracic kyphosis, B knee flexion in standing with indention distal right tibia from fall, right iliac crest is higher than the left, increased Grecia angle right compared to the left and more lateral foot WB right compared to left. PT-OP-K Range of Motion Start: 05/23/21 10:01 Freq: Status: Active Protocol: Document 08/23/21 10:38 LRN (Rec: 08/23/21 11:21 LRN [id number]) Wrist Goniometric Range of Motion Wrist Left Wrist ROM WFL Yes Flexion Active (degrees) 72 Extension Active (degrees) 68 Ulnar Deviation Active (degrees) 48 Radial Deviation Active (degrees) 25 Right Wrist ROM WFL No Flexion Active (degrees) 70 Extension Active (degrees) 60 Ulnar Deviation Active (degrees) 33 Radial Deviation Active (degrees) 23 PT-OP-M Strength Start: 05/23/21 10:01 Freq: Status: Active Protocol: Document 07/07/21 13:03 LRN (Rec: 07/07/21 14:25 LRN [id number]) Hand Maintenance Mechanic Telephone/Pinch Strength Hand Dominance Hand Dominance Right Hand Strength Right Comments Maintenance Mechanic Telephone (kgs), 3 trials: 40, 40, 40 (avg is 40 kgs) Left Comments Maintenance Mechanic Telephone (kgs), 3 trials: 42, 38, 38 (avg is 39 kgs) PT-OP-Q Treatments Start: 05/23/21 10:01 Freq: Status: Active Protocol: Document 08/23/21 10:38 LRN (Rec: 08/23/21 11:21 LRN [id number]) Cardio Equipment Upper Body Ergometer (UBE) Duration (Minutes) 8 RPM 60 Seat Position 14, handles see 3 Height 3.5 Other total cycles Therapeutic Exercises Sitting Exercises Gina R wrist flex/ext Sitting Exercise Name Gina wrist flex in various ext positions (forearm neutral) Side right Reps/Minutes 8' Comments Done with self resist and with hand on wall for wrist ext Wrist Ext stretch Sitting Exercise Name Wrist ext stretch Side right Reps/Minutes 3' Wrist UD/RD Sitting Exercise Name R wrist UD/RD gina in various angles Side right Reps/Minutes 6' Comments no clicking Wrist flexion stretch Sitting Exercise Name Wrist flex stretch Side right Reps/Minutes 3' x 2 Manual Therapy Treatment Manual Techniques MWM Type Wrist ext/fex with radius/ulna glide distal and Scaph/lunate Volar>Dorsal. Body Location R wrist Body Position Sitting Reps/Duration 8' Self-Care/Home Management Treatment Education Patient Education Home Exercise Program Activities Self-Care/Home Management Activities Reviewed pt's self care program if he has a flare up and his HEP of I/S for wrist Isometrics and ex of wrist AROM, ARROM and WBing ex. PT-OP-R Modalities Start: 06/03/21 08:56 Freq: Status: Active Protocol: Document 07/11/21 13:03 LRN (Rec: 07/11/21 13:48 [facility] [id number]) Ultrasound Therapy Treatment R dorsal distal wrist Treatment Duration (minutes) 8 Patient Position Sitting Coupling Medium Ultrasound Gel Applicator Size (cm2) 2 Frequency Setting (mHz) 3 Mode Setting Pulsed Duty Cycle 50% Intensity Setting (w/cm2) 1.0 PT-OP-T Assessment and Plan Start: 05/23/21 10:01 Freq: Status: Active Protocol: Document 08/23/21 10:38 LRN (Rec: 08/23/21 11:21 N [id number]) Physical Therapy Assessment Goals 4 Impairment Lacks self care HEP Back Padder Goal (LTG) Pt will perform progressive HEP with I including posture, range, and strength exercises to improve functional use of right hand by 07/25/21. (06/07/21: Progressed onto HEP of ROM exs) (06/10/21: Scap depr/retract for posture) (06/30/21: I/S pt in R wrist strengthening flex/ext/UD/RD with Lev 1 TB). 07/19/21: increased #[address] wrist, added Tricep ext and shld ext) 07/22/21: progressing: increase TB resistance 6 way wrist #3 TB. 08/09/21: Progressing: increased resistance bodysolid cable system shld IR/ER lat pull down, rows, shld ext, Increased DB resistance bicep curl and 4 way wrist ex #5 DB. 08/15/21: progressing: no pain chest press at gym added to gym HEP also does during PT. LTG Duration 09/05/21 (08/23/21: MET GOAL) 3 Impairment Decreased R home support worker strength Impairment Norm values: males age 45-49, avg home support worker strength is 49.7 R, 45.7 L. [facility] Goal (LTG) Pt will present with dominant right home support worker strength at least equal to the left to prepare for work tasks by 07/25/21. (07/07/21: Avg Maintenance Mechanic Telephone strength ( kgs): 40 R, 39 L, pt is R hand dominant). 07/22/21: Met GOAL: RUE: 32#, 46#, 42#; LUE: 41#, 41.5#, 38# . LTG Duration 09/05/21 (07/22/21: GOAL MET) 2 Impairment Decreased R wrist AROM Back Padder Goal (LTG) Pt will present with active right wrist ROM equal to the left with pt able to return to gym workout without R wrist pain by 07/25/21. (06/07/20: Improving, see assessment) (07/07/21: Pt has a little R wrist pain pushing self off from bed in morning when he used to not be able to. Able to toilet without R wrist pain ; no longer wears R wrist brace driving or with any ADLs ). 07/22/21: improving but not equal, see AROM measurements. 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 Pt. Progressing AROM,see values. (08/23/21: Wrist AROM: Flex is 70 R, 72 L; Ext is 60 R, 62 L; UD is 33 R, 48 L; RD is 23 R, 25 L. LTG Duration 09/05/21 (08/23/21: Partial met goals. Returned to gym exs, ROM limited) 1 Impairment Decreased function of R wrist Ch[facility] Goal (LTG) Pt will present with QuickDASH score reflecting no more than 10% impairment to allow return to work by 09/05/21. (07/07/21: UE QuickDASH score is 25 = 20-39% impaired). (08/15/21: score= 13.64, 1-19% impairment). (08/23/21: Score is 0, 0% impairment). LTG Duration 09/05/21 (08/23/21: MET GOAL) Assessment Summary Assessment Pt has achieved most of his goals for his R wrist. He does not complain of pain, but returns today with report of recent clicking at his wrist after doing increased stretching before returning to PT for assessment. He appears to have instability of his lunate and scaphoid bones . He has been educated in wrist AROM ex with application of stress at the carpels to reduce the clicking. He has been educated in a self care self progressive program of Stabilization (isometrics) > AROM > ARROM > weightbearing. The pt notes no pain with strengthening or weightbearing at this time and feels confident he can continue on his own program; therefore the pt is being discharged to his self care HEP. If the pt has return of pain and is not able to progress himself on his own program we would be more than happy to work with this pleasant individual again . Physical Therapy Plan Discharge Physical Therapy Discharge Reasons Patient Request Discharge Comments Pt responded well to therapy. Thank you for your referral.
== END 2021-08-26 10:38 ==
LOC: PHYS 10:30
PROVIDERS: PCP Internal Medicine; Referring Provider Internal Medicine; Visit Provider Internal Medicine
DX: S63.501A Unspecified sprain of right wrist, initial encounter (principal); S40.011A Contusion of right shoulder, initial encounter; S14.109A Unspecified injury at unspecified level of cervical spinal cord, initial encounter
CPT/HCPCS: 97035; 97110; 97140; 97161

== ENCOUNTER → 2022-02-21 10:06 | Outpatient (CLI) | payer OTHER, SELFPAY ==
--- NOTE | 2022-02-21 10:11 | DI.RAD.S_ITS ---
PROCEDURE: XR SHOULDER RT MIN 2V INDICATIONS: Sprain of right rotator cuff capsule, initial encounter TECHNIQUE: 3 views of the shoulder were acquired. COMPARISON: None. FINDINGS: Bones: No fractures or dislocations. No suspicious bony lesions. Visualized ribs appear intact. Soft tissues: No suspicious soft tissue calcifications. IMPRESSION: Mild degenerative joint disease. Dictated by: Thuy Crooks M.D. on 02/21/2022 at 11:27 Approved by: Thuy Crooks M.D. on 02/21/2022 at 11:28
--- NOTE | 2022-02-21 10:11 | DI.RAD.S_ITS ---
PROCEDURE: XR CERVICAL SPINE 2V OR 3V INDICATIONS: Sprain of right rotator cuff capsule, initial encounter TECHNIQUE: Three view(s) of the cervical spine were acquired. COMPARISON: [facility], CR, XR CERVICAL SPINE 2V OR 3V, 05/16/2021, 15:53. FINDINGS: Bones: No fractures or dislocations to the C7 level. Mild disc height loss and anterior endplate spurring at the C5-6 level and moderate disc height loss with mild anterior and posterior endplate spurs at C6-7. The lateral masses of C1 appear intact on the odontoid view. No suspicious bony lesions. Soft tissues: No prevertebral soft tissue swelling. Bilateral carotid calcification incidentally noted. IMPRESSION: 1. Mild to moderate disc and endplate degeneration at C5-6 and C6-7, stable compared to the prior study. 2. No radiographic evidence of acute cervical spine injury. Dictated by: Margarita Beckman M.D. on 02/21/2022 at 14:00 Approved by: Margarita Beckman M.D. on 02/21/2022 at 14:07
== END ==
PROVIDERS: PCP Internal Medicine; Referring Provider Internal Medicine; Visit Provider Internal Medicine
DX: M19.011 Primary osteoarthritis, right shoulder (principal); S43.421A Sprain of right rotator cuff capsule, initial encounter; M50.322 Other cervical disc degeneration at C5-C6 level; X58.XXXA Exposure to other specified factors, initial encounter
CPT/HCPCS: 72040; 73030

== ENCOUNTER → 2022-04-05 14:49 | Outpatient (CLI) | payer OTHER, SELFPAY ==
--- NOTE | 2022-04-05 | DI.RAD.S_ITS ---
PROCEDURE: XR CERVICAL SPINE 2V OR 3V INDICATIONS: NECK PAIN TECHNIQUE: 3 view(s) of the cervical spine were acquired. COMPARISON: [facility], CR, XR CERVICAL SPINE 2V OR 3V, 02/21/2022, 10:18. FINDINGS: Bones: No fractures or dislocations to the C7-T1 level. The lateral masses of C1 appear intact on the odontoid view. No suspicious bony lesions. There is slight reversal of cervical curvature at C6. Moderate degenerative disc space narrowing is present C6-7 with anterior osteophytes at C5 and C6 Soft tissues: No prevertebral soft tissue swelling. IMPRESSION: Degenerative changes most notable at C5 and C6 Dictated by: Shari Torres M.D. on 04/05/2022 at 15:36 Approved by: Shari Torres M.D. on 04/05/2022 at 15:36
== END ==
PROVIDERS: PCP Internal Medicine; Referring Provider Internal Medicine; Visit Provider Internal Medicine
DX: M54.2 Cervicalgia (principal); M47.812 Spondylosis without myelopathy or radiculopathy, cervical region
CPT/HCPCS: 72040

== ENCOUNTER 2023-07-23 10:06 | Day surgery (SDC) | payer OTHER, SELFPAY ==
--- NOTE | 2023-07-23 | PATH_ITS ---
[facility] Accession Number: [id number] No. of containers..03 Tissue . 01 Material submitted: . PART A: colon - ASCENDING POLYP PART B: colon - DESCENDING POLYP PART C: colon - SIGMOID POLYPS . 01 Diagnosis: A. ASCENDING COLON, POLYP: Tubular adenoma. . B. DESCENDING COLON, POLYP: Tubular adenoma. . C. SIGMOID COLON, POLYPS: Hyperplastic polyps. MRV 07/30/2023 1342 Local . 01 Electronically signed: . Anna Yung MD, Pathologist NPI- [id number] . 01 Gross description: . Part A: ASCENDING POLYP: Received in formalin is 1 fragment(s) of conrad, soft tissue measuring 0.7 x 0.5 x 0.5 cm submitted entirely in 1 cassette(s) Part B: DESCENDING POLYP: Received in formalin is 1 fragment(s) of conrad, soft tissue measuring 0.4 x 0.3 x 0.2 cm submitted entirely in 1 cassette(s) Part C: SIGMOID POLYPS: Received in formalin are 2 fragment(s) of conrad, soft tissue measuring 0.4 x 0.4 x 0.3 cm to 0.5 x 0.5 x 0.3 cm submitted entirely in 1 cassette(s) /JULIET 07/24/2023 2320 Local . 01 Pathologist provided ICD-10: D12.2, D12.4 . 01 CPT . 385739, 409567, [id number] Specimen Comment: A courtesy copy of this report has been sent to [phone] Performed at: 01 [facility] [address] [place] [address] [address], [place], [place] [id number] MD Wallace Ford MD Phone: [phone]
[2023-07-23 11:28] VITALS: BP 165/102; PULSE 68; RESP 16; TEMP 36.8; O2SAT 98
[2023-07-23] MEDS: LACTATED RINGERS 1,000 ML 42 ML IV (11:52)
--- NOTE | 2023-07-23 12:02 | P.HP_ITS ---
History of Present Illness History of Present Illness Date Patient Seen: 07/23/23 Time Patient Seen: 12:02 Chief complaint: SDC Narrative: 52-year-old male with a positive Cologuard. He has intermittent small volume blood per rectum x3 years. He is somewhat on the constipated side of the spectrum normally. [facility] Medical History Hypertension No active medical problems Social History Smoking Status: Unknown if ever smoked alcohol intake: former Meds Home Medications and Allergies Home Medications Medication Instructions Recorded Confirmed Type losartan 100 mg tablet 100 mg PO DAILY 03/31/20 07/23/23 History hydrochlorothiazide 25 mg PO DAILY 03/29/22 07/23/23 History metoprolol tartrate 100 mg tablet 100 mg PO DAILY 03/29/22 07/23/23 History Allergies Allergy/AdvReac Type Severity Reaction Status Date / Time No Known Drug Allergies Allergy Verified 07/23/23 11:21 Review of Systems Review of Systems ROS: Yes All systems reviewed with the patient and are negative except as otherwise documented Exam Vital Signs (past 8 hours): - 07/23/23 11:28 Temperature 98.3 F Pulse Rate 68 Respiratory Rate 16 Blood Pressure 165/102 H Pulse Oximetry 98 Oxygen Delivery Method Room Air Oxygen Delivery Method Room Air Const General: cooperative HENMT Head: normal to inspection Eyes General: appearance normal, both eyes and all related structures Neck Neck: normal visual inspection Chest Chest: normal inspection of the chest Resp Effort & Inspection: normal respiratory effort Cardio Rate: regular rate GI Inspection: normal to inspection Skin General: no rashes or lesions noted Neuro General: patient alert and patient awake Extrem General: normal to inspection and no pedal edema Psych Appearance: grossly normal Assessment & Plan Assessment & Plan narrative: 52-year-old male with a positive Cologuard. Colonoscopy is pursued today.
--- NOTE | 2023-07-23 12:03 | PM.PREOP ---
Pre-operative Note Interval Note History & Physical reviewed/Exam performed by Physician: Yes Changes to H&P: No ASA Class (for procedural sedation): II
--- NOTE | 2023-07-23 13:07 | PM.OP.COLON ---
Operative Date/Time/Diagnoses Date of procedure: 07/23/23 Time of procedure: 13:08 Pre-op diagnosis: Positive Cologuard Post-op diagnosis: same Procedure & Clinicians Study performed: Colonoscopy with hot snare polypectomy Same procedure as scheduled: Yes Indications: Positive Cologuard Surgeon: Bakari Cornell Procedure Notes SCOAP/Timeout: Done Procedure in detail: After the risks and benefits were explained, written and verbal informed consent was obtained. The patient was brought into the procedure room and placed into the left lateral decubitus position. Please see anesthesia notes for sedation details. Digital rectal examination was accomplished. The scope was introduced into the patient and advanced under direct visualization to the cecum as identified by the appendiceal orifice and ileocecal valve. The scope was slowly withdrawn to carefully examine the mucosa for any defects or lesions. Comprehensive imaging was accomplished throughout the rectum including the dentate line. The colon was decompressed, the scope was then removed from the patient who tolerated the procedure well. Adult colonoscope Bowel prep adequate Scope withdrawal time: 13 minutes Sedation minutes: 20 Complications: none Impression: The patient had some scattered diverticulosis through the sigmoid. The sigmoid was somewhat tortuous. There was an approximately 6 mm semi pedunculated polyp in the ascending colon removed with hot snare. In the descending colon there was a sessile 6 mm polyp removed with hot snare. In the sigmoid there were 2 sessile polyps ranging in size from 5-6 mm both removed with hot snare. No additional pathology was appreciated throughout including retroflexed views from within the rectum. Endoscopic diagnosis 1. Multiple colon polyps 2. Diverticulosis Post-procedure Plan for aftercare: 1. Await histology 2. Repeat colonoscopy 3 years. Disposition: PACU
[2023-07-23 13:10] VITALS: BP 142/84; PULSE 82; RESP 14; TEMP 37.2; O2SAT 95
[2023-07-23 13:15] VITALS: BP 144/90; PULSE 77; RESP 17; O2SAT 96
[2023-07-23 13:20] VITALS: BP 134/83; PULSE 77; RESP 15; O2SAT 96
[2023-07-23 13:25] VITALS: BP 131/88; PULSE 69; RESP 17; TEMP 36.7; O2SAT 96
== END 2023-07-23 13:45 | disposition home or self-care (01) ==
PROVIDERS: PCP Physician Assistant; Referring Provider Internal Medicine Gastroenterology; Visit Provider Internal Medicine Gastroenterology
PROC: 0DJD8ZZ Inspection of Lower Intestinal Tract, Via Natural or Artificial Opening Endoscopic (ICD-10-PCS; CPT 45378; principal; 2023-07-23 11:00)
DX: K62.5 Hemorrhage of anus and rectum (principal); R19.5 Other fecal abnormalities; K57.30 Diverticulosis of large intestine without perforation or abscess without bleeding; D12.2 Benign neoplasm of ascending colon; D12.4 Benign neoplasm of descending colon; D12.5 Benign neoplasm of sigmoid colon
CPT/HCPCS: 45385; J2704

== ENCOUNTER → 2023-10-10 10:29 | Outpatient (CLI) | payer OTHER, SELFPAY ==
--- NOTE | 2023-10-10 10:32 | DI.RAD.S_ITS ---
PROCEDURE: XR SHOULDER LT MIN 2V INDICATIONS: SHOULDER APIN TECHNIQUE: 3 views of the shoulder were acquired. COMPARISON: [facility], CR, XR SHOULDER RT MIN 2V, 02/21/2022, 10:18. FINDINGS: Bones: No acute fracture or dislocation. Joint spaces are well maintained. Somewhat limited evaluation of the glenohumeral joint space given patient positioning. Soft tissues: No suspicious soft tissue calcifications. IMPRESSION: No acute bony abnormality. Dictated by: Delisa Aguirre M.D. on 10/10/2023 at 14:13 Approved by: Delisa Aguirre M.D. on 10/10/2023 at 14:15
== END ==
PROVIDERS: PCP Physician Assistant; Referring Provider Physician Assistant; Visit Provider Physician Assistant
DX: M25.812 Other specified joint disorders, left shoulder (principal)
CPT/HCPCS: 73030

== ENCOUNTER → 2024-01-03 07:03 | Outpatient (CLI) | payer OTHER, SELFPAY ==
[2024-01-03 07:49] LABS: Add Manual Diff / Slide Review NO; Basophils Absolute Auto 100 /uL (0-100); Basophils Percent Auto 0.6 % (0-2); Eosinophils Absolute Auto 300 /uL (0-450); Eosinophils Percent Auto 3.8 % (2-4); Hematocrit 41.8 % (41-53); Hemoglobin 14.5 g/dL (13.5-17.5); Lymphocytes Absolute Auto 3100 /uL (1100-4500); Lymphocytes Percent Auto 34.9 % (25-40); Mean Corpuscular HGB Conc 34.7 % (30-36); Mean Corpuscular Hemoglobin 30.8 PG (26-34); Mean Corpuscular Volume 88.8 fL (80-100); Monocytes Absolute Auto 600 /uL (0-900); Monocytes Percent Auto 6.8 % (3-14); Neutrophils Absolute Auto 4800 /uL (1500-7000); Neutrophils Percent Auto 53.9 % (50-75); Platelet Count 324 X10^3/uL (150-400); Red Blood Cell Count 4.71 X10^6/uL (4.5-5.9); White Blood Cell Count 8.8 X10^3/uL (4.5-11.0)
[2024-01-03 08:02] LABS: Hemoglobin A1C% w Est Avg Glu 5.2 % (4.0-6.0)
[2024-01-03 08:21] LABS: Cholesterol 182 mg/dL (140-199); Glucose 96 mg/dL (70-100); HDL Cholesterol 32 mg/dL (40-60); LDL Cholesterol Calculated 118 mg/dL (<100); Triglycerides 162 mg/dL (35-150)
[2024-01-03 08:24] LABS: Vitamin D 25 Hydroxy (D3) 42.5 ng/mL (30.0-100.0)
[2024-01-03 09:11] LABS: Vitamin B12 775 pg/mL (239-931)
== END ==
LOC: LAB 07:05
PROVIDERS: PCP Physician Assistant; Referring Provider Naturopath; Visit Provider Naturopath
DX: E11.9 Type 2 diabetes mellitus without complications (principal); I10 Essential (primary) hypertension; E78.00 Pure hypercholesterolemia, unspecified; E55.9 Vitamin D deficiency, unspecified; D72.829 Elevated white blood cell count, unspecified; Z76.89 Persons encountering health services in other specified circumstances
CPT/HCPCS: 36415; 80061; 82306; 82607; 82947; 83036; 85025

== ENCOUNTER → 2024-04-09 11:26 | Outpatient (CLI) | payer OTHER, SELFPAY ==
--- NOTE | 2024-04-09 11:29 | DI.RAD.S_ITS ---
PROCEDURE: XR CHEST 2V INDICATIONS: Possible positive interferon in the past TECHNIQUE: 2 views of the chest were acquired. COMPARISON: None. FINDINGS: Surgical changes and devices: None. Lungs and pleura: Lungs are clear. No pleural effusions or pneumothorax. Mediastinum: Mediastinal contours are normal. Heart size is normal. Bones and chest wall: No suspicious bony abnormalities. Soft tissues appear unremarkable. IMPRESSION: No acute cardiopulmonary abnormality is seen. No evidence of active tuberculosis Approved by: Adolfo Portillo M.D. on 04/09/2024 at 17:33
== END ==
PROVIDERS: PCP Physician Assistant; Referring Provider Student in an Organized Health Care Education/Training Program; Visit Provider Student in an Organized Health Care Education/Training Program
DX: R89.9 Unspecified abnormal finding in specimens from other organs, systems and tissues (principal)
CPT/HCPCS: 71046

== ENCOUNTER → 2024-04-11 09:16 | Outpatient (CLI) | payer OTHER, SELFPAY | PROVIDERS: PCP Physician Assistant; Referring Provider Student in an Organized Health Care Education/Training Program; Visit Provider Student in an Organized Health Care Education/Training Program | DX: R89.9 Unspecified abnormal finding in specimens from other organs, systems and tissues (principal) | CPT/HCPCS: 36415; 86480 ==

== ENCOUNTER → 2024-06-04 07:50 | Outpatient (CLI) | payer OTHER, SELFPAY ==
[2024-06-04 08:37] LABS: Alanine Aminotransferase 75 IU/L (<50); Albumin Globulin Ratio 1.3 (1.0-2.8); Alkaline Phosphatase 68 U/L (38-126); Aspartate Aminotransferase 38 IU/L (17-59); Bilirubin Total 0.4 mg/dL (0.2-1.3); Bilirubin Unconjugated 0.2 mg/dL (0.0-1.1); HEMOLYSIS < 15 (0-50)
== END ==
PROVIDERS: PCP Physician Assistant; Referring Provider Internal Medicine Infectious Disease; Visit Provider Internal Medicine Infectious Disease
DX: Z22.7 Latent tuberculosis (principal)
CPT/HCPCS: 36415; 80076

== ENCOUNTER 2024-12-06 08:23 | Emergency (ER) | payer OTHER, SELFPAY ==
[2024-12-06] VITALS (8 sets, daily range): BP systolic 135–185; BP diastolic 78–92; PULSE 61–72; RESP 18–19; TEMP 36.7; O2SAT 93–98; BMI 38.4
--- NOTE | 2024-12-06 08:54 | ED.GENADULT ---
HPI - General Adult General Chief complaint: Abdominal Pain Stated complaint: Sent from [facility] Possible gallbladder pain Time Seen by Provider: 12/06/24 08:28 History of Present Illness HPI narrative: 54-year-old gentleman with a history of diabetes, hypertension recently changed from Ozempic to Jardiance presents with intermittent episodes of right upper quadrant pain waxing and waning over the last 4-5 days. Yesterday he had some chicken strips that caused significant increasing pain, right upper quadrant bandlike difficult to find a comfortable position. Not associated with fevers, vomiting or nausea. He had some ice cream later that afternoon that did not exacerbate symptoms. Pain is a dull ache still right upper quadrant, bandlike in the upper abdomen rated as a 2/10 this morning. 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 Related Data Home Medications ?Medication ?Instructions ?Recorded ?Confirmed losartan 100 mg tablet 100 mg PO DAILY 03/31/20 04/09/24 hydrochlorothiazide 25 mg PO DAILY 03/29/22 04/09/24 bupropion HCl 300 mg 24 hr tablet, 300 mg PO QAM 04/09/24 04/09/24 extended release metoprolol tartrate 100 mg tablet 25 mg PO DAILY 04/09/24 04/09/24 Previous Rx's ?Medication ?Instructions ?Recorded rifampin 300 mg capsule 600 mg (2 x 300 mg) PO DAILY #120 04/17/24 caps Allergies Allergy/AdvReac Type Severity Reaction Status Date / Time No Known Drug Allergies Allergy Verified 04/09/24 10:43 Review of Systems Review of Systems Narrative: Pertinent positive and negative findings as per HPI Patient History Medical History Latent tuberculosis Abnormal laboratory test Hypertension No active medical problems Social History alcohol intake: former tobacco type: cigarettes alcohol intake frequency: other Alcohol type: hard liquor Exam Initial Vital Signs Initial Vital Signs: Vital Signs Temperature 98.0 F 12/06/24 08:35 Pulse Rate 61 12/06/24 08:35 Respiratory Rate 18 12/06/24 08:35 Blood Pressure 185/92 H 12/06/24 08:35 Pulse Oximetry 98 12/06/24 08:35 Oxygen Delivery Method Room Air 12/06/24 08:35 General: Healthy appearing, in no acute distress. Able to give a complete and coherent history. Well-nourished well-developed HEENT: Moist mucous membranes, normal sclera with reactive pupils, Respiratory: Lungs are clear to auscultation, no wheezing no rales no rhonchi. Full and symmetrical air movement Cardiac: Regular rate and rhythm Abdomen: Soft, mild discomfort in the right upper quadrant to the epigastrium. No rebound or guarding. No flank pain Skin: No jaundice, Warm and dry, no rashes Neurologic: Grossly neurologically intact with no obvious asymmetries or abnormalities Extremities: No trauma, well perfused, no lower extremity edema Psych: Cooperative, appropriate insight and affect Course Orders Ordered: ED Orders 12/06/24 08:55 US abdomen limited Stat 12/06/24 09:39 Complete Blood Count AUTO DIFF Stat Comprehensive Metabolic Panel Stat Lipase Stat Hydromorphone HCl (Hydromorphone Hcl 0.5 Mg/0.5 Ml Syringe) 0.5 mg IV Q15MIN PRN PRN Reason: Pain, Last Admin: 12/06/24 10:05 Dose: 0.5 mg Documented By: Admin: 12/06/24 09:45 Dose: 0.5 mg Documented By: RAFIQ Vital Signs Vital signs: Vital Signs - 8 hr 12/06/24 08:35 Temperature 98.0 F Pulse Rate 61 Respiratory Rate 18 Blood Pressure 185/92 H Pulse Oximetry 98 Oxygen Delivery Method Room Air Medical Decision Making Lab Data 12/06/24 09:39 12/06/24 09:39 Labs: Lab Results 12/06/24 Range/Units 09:39 WBC 10.3 (4.5-11.0) X10^3/uL RBC 5.19 (4.5-5.9) X10^6/uL Hgb 15.9 (13.5-17.5) g/dL Hct 46.4 (41-53) % MCV 89.5 (80-100) fL MCH 30.6 (26-34) PG MCHC 34.2 (30-36) % RDW 14.1 (11.6-14.8) % Plt Count 345 (150-400) X10^3/uL Neut % (Auto) 74.7 (50-75) % Lymph % (Auto) 16.1 L (25-40) % [place] % (Auto) 5.2 (3-14) % Eos % (Auto) 3.4 (2-4) % Baso % (Auto) 0.6 (0-2) % Neut # (Auto) 7700 H (9820-2635) /uL Lymph # (Auto) 1700 (5673-1791) /uL [place] # (Auto) 500 (0-900) /uL Eos # (Auto) 400 (0-450) /uL Baso # (Auto) 100 (0-100) /uL Sodium 137 (137-145) mmol/L Potassium 4.0 (3.4-5.1) mmol/L Chloride 106 (98-107) mmol/L Carbon Dioxide 23 (22-32) mmol/L BUN 14 (9-20) mg/dL Creatinine 0.99 (0.66-1.25) mg/dL Estimated GFR > 60 (>60) mL/min BUN/Creatinine Ratio 14.1 (6-22) Glucose 132 H (70-99) mg/dL Calcium 8.8 (8.4-10.2) mg/dL Total Bilirubin 2.1 H (0.2-1.3) mg/dL AST 802 H (17-59) IU/L ALT 817 H (<50) IU/L Alkaline Phosphatase 112 (38-126) U/L Total Protein 7.5 (6.3-8.2) g/dL Albumin 4.3 (3.5-5.0) g/dL Globulin 3.2 (1.7-4.1) g/dL Albumin/Globulin Ratio 1.3 (1.0-2.8) Lipase 7757 H (23-300) U/L Imaging Data US - abdomen: Radiologist's Impression: PROCEDURE: US ABDOMEN LIMITED INDICATIONS: RUQ pain, ?gallbladder colic TECHNIQUE: Real-time scanning was performed of the abdominal and retroperitoneal organs, with image documentation. COMPARISON: None. FINDINGS: Liver: Liver is normal in size and homogeneous in echotexture. Gallbladder: Cholelithiasis. No gallbladder wall thickening or pericholecystic fluid Biliary ducts: Intrahepatic bile ducts are non-dilated. Extrahepatic bile duct caliber measures 5.5 mm. Normal is 6-7 mm or less in diameter, or 10 mm or less post-cholecystectomy. Pancreas: Visualized portions of the pancreas are sonographically normal. Miscellaneous: No free abdominal fluid. IMPRESSION: Cholelithiasis Approved by: Adolfo Portillo M.D. on 12/06/2024 at 9:32 MDM Narrative Medical decision making narrative: CC: Waxing and waning right upper quadrant pain for the last 4-5 days Complicating co-morbidities: Diabetes, hypertension, hyperlipidemia, switch from Ozempic to Jardiance in the last number of weeks. Data collected from: patient Differential considered: Gallbladder colic, acute cholecystitis, cholangitis, pancreatitis, gastritis, gastric/duodenal ulcer, constipation Exam documented above, pertinent findings include: Mildly uncomfortable, mild tenderness in the right upper quadrant, he does not have an acute surgical abdomen Lab Test results independently reviewed as above. Pertinent findings: CBC is unremarkable Chemistries are notable for normal renal function Liver studies are increased with a bilirubin at 2.1, AST at 8:02 a.m., ALT at 8:17 a.m. and alk-phos at 112 Lipase is elevated at 7757 Imaging studies independently reviewed: US: Cholelithiasis. No gallbladder wall thickening or pericholecystic fluid Biliary ducts: Intrahepatic bile ducts are non-dilated. Extrahepatic bile duct caliber measures 5.5 mm. Normal is 6-7 mm or less in diameter, or 10 mm or less post-cholecystectomy. Treatments: IV Zofran, hydromorphone Discussion: 54-year-old gentleman recent fairly significant weight loss comes in with gallbladder colic type symptoms. He does have gallstones no obvious ductal dilatation however elevated liver enzymes and acute pancreatitis. Concern for choledocholithiasis. Needs MRI and likely will need ERCP. Explained to him the MRI will be ordered 1st available slot is at 4:00 p.m. this afternoon, after that his back will talk with available hospitals with capacity for doing ERCP if needed. Patient does not want to wait for continued workup here at [facility]. We had a long discussion regarding options and he has chosen to leave against medical advice. I have clearly reviewed with him my concerns and the fact that choledocholithiasis with infection can be life threatening. Explained to him that he does have pancreatitis and likely does need his gallbladder out probably sooner rather than later. He states he understands. This point he is not having pain or nausea. And he is choosing to leave against medical advice. Welcomed him back to the ER after he has taken care of tasks needed to be done at home. Discharge Plan Departure Patient Disposition: Left Against Medical Advice Clinical Impression: Choledocholithiasis, Pancreatitis, Gallbladder colic, Elevated liver enzymes Activity Restrictions/Additional Instructions: Thank you for coming in today You have pancreatitis, elevated liver enzymes and the pain that you have been experiencing is likely from your gallbladder and gallstones. I am concerned that there is a gallstone that is stuck causing all of these problems. I have explained the continued workup needed including likely an MRI as the next step. You have expressed the desire to go home finish additional tasks prior to completing the remainder of this workup. You will need continued care sooner rather than later. I would encourage you to return to the ER as soon as possible Prescriptions: No Action losartan 100 mg tablet 100 mg PO DAILY hydrochlorothiazide 25 mg PO DAILY rifampin 300 mg capsule 600 mg PO DAILY Qty: 120 0RF bupropion HCl 300 mg tablet extended release 24 hr 300 mg PO QAM metoprolol tartrate 100 mg tablet 25 mg PO DAILY Referrals: Anastacia Pace PAVal [Primary Care Provider, Medical] Stand Alone Forms: Patient Portal/API, Against Med. Advice (Sami)
[2024-12-06 09:49] LABS: Add Manual Diff / Slide Review NO; Hematocrit 46.4 % (41-53); Hemoglobin 15.9 g/dL (13.5-17.5); Lymphocytes Absolute Auto 1700 /uL (1100-4500); Mean Corpuscular HGB Conc 34.2 % (30-36); Mean Corpuscular Hemoglobin 30.6 PG (26-34); Mean Corpuscular Volume 89.5 fL (80-100); Platelet Count 345 X10^3/uL (150-400)
[2024-12-06 10:04] LABS: Albumin 4.3 g/dL (3.5-5.0); Albumin Globulin Ratio 1.3 (1.0-2.8); Alkaline Phosphatase 112 U/L (38-126); Blood Urea Nitrogen 14 mg/dL (9-20); Calcium 8.8 mg/dL (8.4-10.2); Carbon Dioxide 23 mmol/L (22-32); Chloride 106 mmol/L (98-107); Estimated Glomerular Filt Rate > 60 mL/min (>60); Globulin 3.2 g/dL (1.7-4.1); Glucose 132 mg/dL (70-99); HEMOLYSIS < 15 (0-50); Potassium 4.0 mmol/L (3.4-5.1); Sodium 137 mmol/L (137-145); Total Protein 7.5 g/dL (6.3-8.2)
[2024-12-06 10:20] LABS: Alanine Aminotransferase 817 IU/L (<50)
[2024-12-06 10:31] LABS: Lipase 7757 U/L (23-300)
--- NOTE | 2024-12-06 11:15 | PC.NURSE ---
Pt wanting to leave after talking to MD. Dr Galvan notified and in pt room. Pt wanting to leave AMA.
== END 2024-12-06 11:25 | disposition left against medical advice (07) ==
PROVIDERS: Emergency Provider Emergency Medicine; PCP Physician Assistant
DX: K80.70 Calculus of gallbladder and bile duct without cholecystitis without obstruction (principal); K85.90 Acute pancreatitis without necrosis or infection, unspecified; R74.01 Elevation of levels of liver transaminase levels; Z53.29 Procedure and treatment not carried out because of patient's decision for other reasons
CPT/HCPCS: 36415; 76705; 80053; 83690; 85025; 96374; 99284; J1171